=== PATIENT | female | born 1990 | race African-American/Black ===

== ENCOUNTER 2021-12-14 13:44 | Emergency (ER) | payer OTHER, SELFPAY ==
[2021-12-14] VITALS (10 sets, daily range): BP systolic 103–141; BP diastolic 60–93; PULSE 78–83; RESP 16–18; TEMP 36.4; O2SAT 97–100
--- NOTE | ~2021-12-14 | XR_ITS ---
EXAMINATION: XR chest 2V DATE: 12/14/2021 16:07 INDICATION: Cough. TECHNIQUE: Frontal and lateral views of the chest were obtained. COMPARISON: None. FINDINGS: There is no pneumonia, pleural effusion, or pneumothorax. The heart size is normal. IMPRESSION: 1. No acute cardiopulmonary disease. Reviewed, dictated and finalized at location B.
--- NOTE | 2021-12-14 14:11 | ED.URI ---
HPI - URI/Sore Throat General Chief Complaint: Upper Respiratory Infection Stated Complaint: respiratiry virus Time Seen by Provider: 12/14/21 13:48 History of Present Illness HPI Narrative: 31-year-old female presents the emergency room for evaluation of multiple complaints. Patient states for 3 days she has been experiencing sinus congestion, postnasal drip, productive cough and frequently clearing her throat especially when she is laying down. Patient is also been complaining of mild nausea and multiple episodes of nonbloody diarrhea. Patient states, I have a viral illness . Patient has taken Tylenol and hrne-bfw-vvtytln [place] cough and flu for a couple of days with no resolution of symptoms. Patient states that she is also experiencing polyuria and polydipsia. Related Data Allergies Allergy/AdvReac Type Severity Reaction Status Date / Time No Known Allergies Allergy Verified 12/14/21 13:45 Review of Systems Review of Systems: CONSTITUTIONAL: Denies fever, chills, or sweats. EYES: Denies visual changes, redness, or discharge. ENT: Reports rhinorrhea, congestion, sore throat, or otalgia. CARDIOVASCULAR: Denies chest pain, palpitations, or edema. RESPIRATORY: Denies cough or dyspnea. GASTROINTESTINAL: Reports diarrhea. GENITOURINARY: Denies dysuria or hematuria. SKIN: Denies rash or itching. MUSCULOSKELETAL: Denies back pain, joint pain, or myalgia. NEUROLOGIC: Denies headache, numbness, dizziness, or weakness. PSYCHIATRIC: Denies anxiety or depression. Exam Narrative: GENERAL: Well-appearing, well-nourished, no physical limitations, and in no acute distress. HEAD: Normocephalic, atraumatic. EYES: Conjunctivae normal, PERRLA and EOMI. ENT: External nose normal, Nares clear, no rhinorrhea or epistaxis. Mucous membranes moist. Oropharynx without tonsillar hypertrophy exudate or other lesions. External ears normal, bilateral TMs normal bilaterally NECK: Supple. No adenopathy or masses. CHEST: Clear to auscultation. No respiratory distress. No wheezes rales or rhonchi. HEART: Regular rate and rhythm. No murmur heard. Normal peripheral pulses. ABDOMEN: Soft, nontender, nondistended, normal active bowel sounds. SKIN: 5.2cm linear laceration to the dorsal surface of the webbing of the right hand. NEURO: No focal deficits. Alert and oriented x3. MAEW. CN's II-XI intact bilaterally, normal gait PSYCH: Cooperative. Normal mood and affect. Course Vital Signs Vital signs: Vital Signs Temperature 36.4 C L 12/14/21 13:52 Pulse Rate 81 12/14/21 13:52 Respiratory Rate 16 12/14/21 13:52 Blood Pressure 141/93 H 12/14/21 13:52 Pulse Oximetry 99 12/14/21 13:52 Temperature 36.4 C L 12/14/21 13:52 Pulse Rate 83 12/14/21 15:24 Respiratory Rate 16 12/14/21 15:24 Blood Pressure 103/60 12/14/21 15:24 Pulse Oximetry 100 12/14/21 15:24 Oxygen Delivery Room Air 12/14/21 14:20 MDM - URI/Sore Throat Lab Data Result diagrams: 12/14/21 14:22 12/14/21 14:22 Labs: Lab Results 12/14/21 12/14/21 12/14/21 Range/Units 14:22 14:22 14:22 WBC 2.7 L (4.5-10.0) K/mm3 RBC 5.60 H (4.2-5.4) M/mm3 Hgb 12.6 (12.0-15.0) g/dL Hct 40.7 (37.0-47.0) % MCV 72.7 L (80-100) fl MCH 22.5 L (26-34) pg MCHC 31.0 L (32-36) g/dl RDW 14.7 H (11.5-14.5) % Plt Count 189 (150-375) k/mm3 MPV 11.5 H (7.4-10.4) fl Immature Gran % (Auto) 0.4 (0-0.5) % Neut % (Auto) 66.6 (45.5-73.1) % Lymph % (Auto) 25.2 (18.3-44.2) % Banner % (Auto) 5.2 (2.6-8.5) % Eos % (Auto) 2.2 (0-4.4) % Baso % (Auto) 0.4 (0.2-1.2) % Lymph # (Auto) 0.68 L (0.9-3.2) K/mm3 Banner # (Auto) 0.1 (0.1-0.6) K/mm3 Eos # (Auto) 0.1 (0-0.3) K/mm3 Baso # (Auto) 0.0 (0.0-0.1) K/mm3 Abs Immat Gran (auto) 0.01 (0.00-0.031) K/mm3 Absolute Neuts (auto) 1.8 (1.3-6.7) K/mm3 Absolute Nucleated RBC 0.0 (0.0-0.012) K/mm3 Nucleat
[2021-12-14] MEDS: SODIUM CHLORIDE 0.9% IV 1,000 ML 999 ML IV CONT (14:22)
[2021-12-14 14:44] LABS: Basophils Percent Auto 0.4 % (0.2-1.2); Eosinophils Absolute Auto 0.1 K/mm3 (0-0.3); Eosinophils Percent Auto 2.2 % (0-4.4); Hematocrit 40.7 % (37.0-47.0); Hemoglobin 12.6 g/dL (12.0-15.0); Immature Granulocyte Absolute 0.01 K/mm3 (0.00-0.031); Immature Granulocyte Percent A 0.4 % (0-0.5); Immature Platelet Fraction Pct 6.1 % (0.9-11.2); Lymphocytes Absolute Auto 0.68 K/mm3 (0.9-3.2); Lymphocytes Percent Auto 25.2 % (18.3-44.2); Mean Corpuscular Hemoglobin 22.5 pg (26-34); Mean Corpuscular Volume 72.7 fl (80-100); Mean Platelet Volume 11.5 fl (7.4-10.4); Monocytes Absolute Auto 0.1 K/mm3 (0.1-0.6); Monocytes Percent Auto 5.2 % (2.6-8.5); Neutrophils Absolute Auto 1.8 K/mm3 (1.3-6.7); Neutrophils Percent Auto 66.6 % (45.5-73.1); Platelet Count Result 189 k/mm3 (150-375); Red Cell Distribution Width 14.7 % (11.5-14.5); White Blood Count 2.7 K/mm3 (4.5-10.0)
[2021-12-14 14:53] LABS: Hemoglobin A1C 5.6 % (<5.7)
[2021-12-14 14:55] LABS: Alanine Aminotransferase 51 U/L (6-35); Albumin Level 4.1 g/dL (3.5-5.1); Alkaline Phosphatase 78 U/L (38-126); Anion Gap 9 mmol/L (8-16); Aspartate Amino Transferase 37 U/L (14-36); Bilirubin,Total 0.2 mg/dL (0.2-1.3); Blood Urea Nitrogen 7 mg/dL (7-17); Calcium 8.5 mg/dL (8.4-10.2); Carbon Dioxide 24 mmol/L (22-30); Chloride 103 mmol/L (98-107); Estimated CRCL calculation 132 ml/min; Estimated Glomerular Filt Rate > 60; Glucose 101 mg/dL (65-110); Potassium 3.4 mmol/L (3.4-5.0); Sodium 136 mmol/L (137-145)
[2021-12-14 15:17] LABS: Microcytosis 1+ (NORMAL); Platelet Estimate Adequate (Adequate); Schistocytes None Seen (NORMAL)
[2021-12-14 15:19] LABS: SARS-CoV-2 RNA PCR Negative
[2021-12-14 16:45] LABS: Appearance Urine Slightly Cloudy (Clear); Bilirubin Urine 1+ (Negative); Blood Urine Negative (Negative); Color Urine Yellow (Yellow); Glucose Urine UA Negative (Negative); Ketones Urine Trace mg/dL (Negative); Leukocyte Esterase Ur Negative LEU/UL (Negative); Nitrate Urine Negative (Negative); Protein Urine Trace mg/dL (Negative); Specific Grav Ur >= 1.030 (1.001-1.035); Urobilinogen Urine 0.2 mg/dL (<2.0); pH Urine 5.5 (5.0-9.0)
[2021-12-14 16:52] LABS: Mucus Urine Few /lpf; RBC Urine 0-2 /hpf (0-2); Squamous Epithelial Cell Urine Moderate /hpf (Few); WBC Urine 0-3 /hpf
[2021-12-14 16:53] LABS: Add Urine Microscopic? YES
== END 2021-12-14 17:36 | disposition home or self-care (01) ==
PROVIDERS: Emergency Provider Nurse Practitioner Family
DX: J06.9 Acute upper respiratory infection, unspecified (principal); Z20.822 Contact with and (suspected) exposure to COVID-19
CPT/HCPCS: 36415; 71046; 80053; 81001; 83036; 85025; 85055; 96360; 96361; 99283; C9803; J7030; U0003; U0005

== ENCOUNTER 2023-01-24 15:44 | Outpatient (CLI) | payer OTHER, MEDICAID, SELFPAY ==
[2023-01-24 16:08] LABS: Basophils Absolute Auto 0.1 K/mm3 (0.0-0.1); Basophils Percent Auto 0.8 % (0.2-1.2); Eosinophils Absolute Auto 0.2 K/mm3 (0-0.3); Eosinophils Percent Auto 3.5 % (0-4.4); Hemoglobin 11.2 g/dL (12.0-15.0); Immature Granulocyte Absolute 0.01 K/mm3 (0.00-0.031); Immature Granulocyte Percent A 0.2 % (0-0.5); Immature Platelet Fraction Pct 8.1 % (0.9-11.2); Lymphocytes Absolute Auto 2.35 K/mm3 (0.9-3.2); Lymphocytes Percent Auto 39.6 % (18.3-44.2); Mean Corpuscular HGB Conc 30.3 g/dl (32-36); Mean Corpuscular Hemoglobin 21.7 pg (26-34); Mean Corpuscular Volume 71.7 fl (80-100); Mean Platelet Volume 11.5 fl (7.4-10.4); Monocytes Absolute Auto 0.4 K/mm3 (0.1-0.6); Monocytes Percent Auto 6.6 % (2.6-8.5); Neutrophils Absolute Auto 2.9 K/mm3 (1.3-6.7); Neutrophils Percent Auto 49.3 % (45.5-73.1); Platelet Count Result 237 k/mm3 (150-375); Red Blood Count 5.16 M/mm3 (4.2-5.4); Red Cell Distribution Width 15.9 % (11.5-14.5); White Blood Count 5.9 K/mm3 (4.5-10.0)
[2023-01-24 16:47] LABS: Iron 47 ug/dL (37-170)
[2023-01-24 16:57] LABS: Alanine Aminotransferase 36 U/L (6-35); Albumin Level 4.3 g/dL (3.5-5.1); Alkaline Phosphatase 60 U/L (38-126); Anion Gap 10 mmol/L (8-16); Aspartate Amino Transferase 37 U/L (14-36); Bilirubin,Total 0.3 mg/dL (0.2-1.3); Blood Urea Nitrogen 7 mg/dL (7-17); Carbon Dioxide 28 mmol/L (22-30); Chloride 102 mmol/L (98-107); Estimated Glomerular Filt Rate > 60; Glucose 86 mg/dL (65-110); Potassium 3.9 mmol/L (3.4-5.0); Sodium 140 mmol/L (137-145)
[2023-01-24 16:58] LABS: Percent Iron Saturation 13 % (20-50)
[2023-01-24 17:54] LABS: Folic Acid 6.2 ng/mL (2.76->20)
[2023-01-27 09:39] LABS: Methylmalonic Acid 130 nmol/L (87-318)
[2023-01-28 17:45] LABS: Soluble Transferrin Receptor 1.88 mg/L (0.76-1.76)
== END 2023-01-24 15:45 | disposition home or self-care (01) ==
LOC: ANHLAB 15:50
PROVIDERS: Nurse Practitioner Family; PCP Internal Medicine; Visit Provider Internal Medicine Hematology & Oncology
DX: D50.9 Iron deficiency anemia, unspecified (principal)
CPT/HCPCS: 36415; 80053; 82607; 82728; 82746; 83540; 83550; 83921; 84238; 85025; 85055

== ENCOUNTER 2024-10-08 07:53 | Outpatient (CLI) | payer OTHER, MEDICAID, SELFPAY ==
--- OUTSIDE RECORDS SUMMARY | 2024-10-08 08:01 | XMS_ITS | Clinical Summary ---
Author Organization [facility] Address [address] [place] [address] Care Team Providers Care Charity Fundraiser Name Role Phone Elvia Corrales MD Primary Care Provider Source Comments [facility],non-owned Affiliates and Associated Physician Practices is amultiple site organization consisting of ambulatory clinics and hospital sitesin [place], [place], [place] and [place]. This disclosure is being madepursuant to the Care Everywhere program and may not contain all information available regarding this patient. Last updated 17.[facility] Allergies No known active allergies Medications * Be aware that medications may not be up to date on this document. Alwaysverify current medications with the patient. cetirizine (ZyrTEC) 10 MG tablet Take 1 (one) tablet by mouth once daily as needed 3 Active rosuvastatin (Crestor) 40 MG tablet Take 1 (one) tablet by mouth once daily 4 Active topiramate (Topamax) 25 MG tablet Take 1 (one) tablet by mouth once daily for 7 days, THEN 1 (one) tablet 2 times daily for 7 days, THEN 2 (two) tablets 2 times daily for 14 days, THEN 3 (three) tablets 2 times daily for 14 days. 161 tablet 4 Active phentermine (Ionamine) 30 MG capsule Take 25 mg by mouth daily before breakfast Active ibuprofen (Motrin) 600 MG tablet Take 1 (one) tablet by mouth every 6 hours as needed for Pain 50 tablet 1 4 Active acetaminophen (Tylenol) 500 MG capsule Take 2 (two) capsules by mouth every 6 hours 50 capsule 1 4 Active oxyCODONE, immediate release, (Roxicodone) 5 MG tabletIndicatio ns:Postoperativ e state Take 1 (one) tablet by mouth every 6 hours as needed for Pain 12 tablet 4 Active ondansetron, disintegrating, (Zofran ODT) 4 MG tablet Take 1 (one) tablet by mouth every 6 hours as needed for Nausea/Vomitin g Allow tablet to dissolve on the tongue 30 tablet 4 Active Myfembree 40-1-0.5 MG TABSIndications :Fibroid Take 1 tablet by mouth once daily 90 tablet 4 4 Active Active Problems No known active problems Family History Medical History Relation Name Comments Cancer - Breast Maternal Aunt Cancer Other extensive in ma ternal distant side Relation Name Status Comments Maternal Aunt Alive Mother fibroid Other Social History Tobacco Use Types Packs/Day Years Used Date Smoking Tobacco: Never Passive Smoke Exposure: Never Smokeless Tobacco: Never Tobacco Cessation:Counseling Given: Not Answered Alcohol Use Standard Drinks/Week Comments Yes 0 (1 standard drink = 0.6 oz pur e alcohol) ocassional- once a month or so AUDIT-C Answer Date Recorded Q1: How often do you have a drink containing alc ohol? Never 09/20/2023 Average Number of Drinks Not on file 024 Frequency of Binge Drinking Not on file 11/2023 PHQ-2 Answer Date Recorded Patient Health Questionnaire-2 Score 6 09/29/2023 Comments No Sex and Gender Information Value Date Recorded Sex Assigned at Not on file Legal Sex Female 3:39 PM CDT Gender Identity Not on file Sexual Orientation Not on file Last Filed Vital Signs Vital Sign Reading Time Taken Comments Blood Pressure 132/88 10/06/2023 3:41 PM CDT Pulse 92 09/20/2023 5:12 PM CDT Temperature 36.6 C (97.9 F) 09/20/2023 3:08 PM CDT Respiratory Rate 16 09/20/2023 5:12 PM CDT Oxygen Saturation 94% 09/20/2023 5:12 PM CDT Inhaled Oxygen Concentration - - Weight 152.9 kg (337 lb) 10/06/2023 3:41 PM CDT Height 172.7 cm (5' 8) 10/06/2023 3:41 PM CDT Body Mass Index 51.24 10/06/2023 3:41 PM CDT Plan of Treatment Health Maintenance Due Date Last Done Comments HIV SCREENING 02/25/2003 HEPATITIS C SCREENING 02/21/2006 DTAP/TDAP/TD VACCINES (1 - Tdap) 02/25/2007 HEPATITIS B VACCINE (1 of 3 - 19+ 3-dose series) 02/25/2007 PAP SMEAR 02/25/2009 HPV VACCINE (1 - 3-dose SCDM series) 02/25/2015 COVID-19 VACCINE ( - 2023-2 5 season) 2023 DEPRESSION SCREENING 03/14/2024 06/24/2023 INFLUENZA VACCINE (#1) 2024 6, 12/24/2013 ZOSTER VACCINE (1 of 2) 02/25/2038 HIB VACCINE Aged Out No longer eligi ble based on patient's age to complete this topic MENINGOCOCCAL (Group B) VACCINE SHARED DECISION-MAKING Aged Out No longer eligible based on patient's age to complete this topic MENINGOCOCCAL GROUPS A/C/Y/W VACCINE Aged Out No longer eligible b ased on patient's age to complete this topic PNEUMOCOCCAL VACCINE Aged Out No long er eligible based on patient's age to complete this topic Insurance [facility] MEDICAID - [place] Care Teams Charity Fundraiser Relationship Specialty Start Date End Date Elvia Corrales MD [address] [address] PCP - General Internal Medicine 05/24/23
--- OUTSIDE RECORDS SUMMARY | 2024-10-08 08:01 | XMS_ITS | Patient Health Record ---
Author Organization [facility] [employer] Address [address] [place] [address] Care Team Providers Care Leasing Consultant Name Role Phone Vinita Martinez Unavailable [phone] Allergies No Known Allergies Reason For Referral No Information Medications Medication SIG (Take, Route, Frequency, Duration) Notes Start Date End Date Status hydrOXYzine HCl 10 MG 1 tablet as needed Orally twice a day for anxiety 12/28/2023 Active Rosuvastatin Calcium 40 MG Oral 05/11/2023 Active Fluticasone Propionate Diskus 50 MCG/ACT Inhalation *Reorder from [employer] for eRx and Interaction Alerts* 05/11/2023 Unknown Wellbutrin XL 150 MG 1 tablet in the morning Oral Once a day; Duration: 90 days Active MYFEMBREE 40 MG-1 MG-0.5 MG TABLET *Reorder from [employer] for eRx and Interaction Alerts* 05/11/2023 Active Cyclobenzaprine HCl 10 MG Oral 05/11/2023 Not-Taking Immunizations Vaccine Route Administration Date Status Comme nts Tdap Unknown 09/30/2022 Administered Social History Tobacco Use: Social History Observation Description Date Details (start date - stop date) Never Smoker NA - NA Sex Assigned At : Social History Observation Description Sex Assigned At Female Tobacco Control (Standard) Question Answer Notes Tobacco use: Nonsmoker Problems Problem Type SNOMED Code ICD Code Onset Dates Problem Status W/U Status Risk Notes Problem Major depressive disorder, recurrent severe without psychotic features (F33.2) Active confirmed Problem Generalized anxiety disorder (65558159) Generalized anxiety disorder (F41.1) Active confirmed Encounters Encounter Location Date Provider Diagnosis [facility] [address] [place] [address] 12/28/2023 Vinita Martinez Major depressive disorder, recurrent severe without psychotic features F33.2 and Generalized anxiety disorder F41.1 Assessments Encounter Date Diagnosis (ICD Code) Assessment Notes Treatment Notes Treatment Clinical Notes Section Notes 12/28/2023 Major depressive disorder, recurrent severe without psychotic features (ICD-10 - F33.2) 12/28/2023 Generalized anxiety disorder (ICD-10 - F41.1) 12/28/2023 Other Restart Wellbutrin 150mg daily for mood, anxiety. Start hydroxyzine 10mg BID for anxiety PRN Patient educated on all medications including potential benefits, side effects, risks. Educated on proper dosing schedule and importance of compliance. Plan Of Treatment Next Appt Details Provider Name:Vinita Johnson dominique, 10/18/2024 11:30:00 AM, [address], [address], [place], [address], Insurance Providers Payer Name Payer Address Payer Phone Subscriber Number Group Number Insured Name Patient Relationship to Insured Coverage Start Date Coverage End Date [facility] [address] [place] [phone] [id number] KAMERON YI Self - patient is the insured [place] [address] [address] [place] [address] [id number] KAMERON YI Self - patient is the insured Medical (General) History Medical History History ICD Code Problems: Allergic rhinitis Anemia Environmental allergy Generalized anxiety disorder Hyperlipidemia Lipoma of skin Liver function tests outside reference r danica Low back pain Mass of soft tissue Prediabetes Serum vitamin B12 below reference range Severe recurrent major depression withou t psychotic features Vitamin D deficiency , Surgical History Surgery Date(Month/Year) Other 02/21/2023
--- OUTSIDE RECORDS SUMMARY | 2024-10-08 08:01 | XMS_ITS | Encounter Summary ---
Author Organization [facility] Address [address] [place] [address] Care Team Providers Care Carburetor Mechanic Name Role Phone Elvia Corrales MD Primary Care Provider Reason for Visit * Reason Onset Date Comments Med Question 10/10/2023 Insurance Issue/question 10/10/2023 Encounter Details Date Type Department Care Team (Late st Contact Info) Description 10/10/2023 Telephone [facility] [address] [place] [address] Luiza Dillard MD [address] [place] [address] Med Question; Insurance Issue/question Social History Tobacco Use Types Packs/Day Years Used Date Smoking Tobacco: Never Passive Smoke Exposure: Never Smokeless Tobacco: Never Alcohol Use Standard Drinks/Week Comments Yes 0 [...] on file Sexual Orientation Not on file documented as of this encounter Miscellaneous Notes * Telephone Encounter - Hilaria Smith RN - 10/12/2023 10:13 AM CDT Approved on October 09 by [employer] 2017 [facility] Request Reference Number: [id number]. MYFEMBREE TAB is approved through 10/09/2024. Your patient may now fill this prescription and it will be covered. RN sent mychart to pt to make aware * Telephone Encounter - Hilaria Smith RN - 10/10/2023 11:44 AM CDT RN does not see PA initiated for Myfembree that was sent 10/04/23. RN initiated on CMM (Zambrano: [id number]) Awaiting decision * Telephone Encounter - Carin Hernández - 10/10/2023 11:19 AM CDT Radha with [employer] is calling to see if there is a prior authorization for the PT's RX of Myfembree tablets. C/B [phone] documented in this encounter Plan of Treatment Not on file documented as of this encounter Visit Diagnoses Not on filedocumented in this encounter Care Teams Carburetor Mechanic Relationship Specialty Start Date End Date Elvia Corrales MD [address] [phone] PCP - General Internal Medicine 05/24/23 documented as of this encounter
--- OUTSIDE RECORDS SUMMARY | 2024-10-08 08:01 | XMS_ITS | Clinical Summary ---
Author Organization [facility] Address [address] [place] [address] Care Team Providers Care Dustless Operator Name Role Phone Jun Rodriguez MD Primary Care Provider + [phone] Allergies No known active allergies Medications Levonorgest-Eth Estrad 91-Day (CAMRESE LO) 0.1-0.02 & 0.01 MG Tab Active busPIRone 7.5 MG tablet Take 7.5 mg by mouth 3 (three) times daily. Active hydrocodone-kvng taminophen 5-325 MG tablet Take 1 tablet by mouth every 6 (six) hours as needed for Pain. Do not drive while taking Hydrocodone 10 tablet 8 Active Active Problems No known active problems Family History Medical History Relation Comments Hypertension Mother Relation Status Comments Father Alive Mother Alive Social History Tobacco Use Types Packs/Day Years Used Date Smoking Tobacco: Never Smokeless Tobacco: Never Alcohol Use Standard Drinks/Week Comments No 0 (1 standard drink = 0.6 oz pur e alcohol) Comments No Sex and Gender Information Value Date Recorded Sex Assigned at Not on file Legal Sex Female 7:14 PM CDT Gender Identity Not on file Sexual Orientation Not on file Last Filed Vital Signs Vital Sign Reading Time Taken Comments Blood Pressure 138/88 11/26/2017 2:50 PM CDT Pulse 87 11/26/2017 2:50 PM CDT Temperature 37.2 C (98.9 F) 11/26/2017 2:50 PM CDT Respiratory Rate 18 11/26/2017 2:50 PM CDT Oxygen Saturation 99% 11/26/2017 2:50 PM CDT Inhaled Oxygen Concentration - - Weight 143.3 kg (316 lb) 11/26/2017 2:50 PM CDT Height 172.7 cm (5' 8) 11/26/2017 2:50 PM CDT Body Mass Index 48.05 11/26/2017 2:50 PM CDT Plan of Treatment Health Maintenance Due Date Last Done Comments Cervical Cancer Screening Pap Smear (Age 30 to 64) Every 3 Years 1990 Annual Physical 02/25/1991 Hepatitis C 02/25/2006 DTaP, Tdap and Td Vaccines (2 - Tdap) 02/25/2007 09/28/1997, 12/08/1993, 12/26/1991, Additional history exists Hepatitis B Vaccines (1 of 3 - 19+ 3-dose series) 02/25/2007 HPV Vaccines (1 - 3-dose SCDM series) 02/25/2015 Cervical Cancer Screening Pap with HPV Testing (Age 30 to 64) Every 5 Years 02/25/2018 Cervical Cancer Screening with HPV 02/25/2018 COVID-19 Vaccine ( season) 2023 Meningococcal B Vaccine Aged Out No l onger eligible based on patient's age to complete this topic Meningococcal Vaccine Aged Out No tam pamela eligible based on patient's age to complete this topic Pneumococcal Vaccine: Pediatrics (0 to 5 Years) and At-Risk Patients (6 to 49 Years) Aged Out No longer eligible based on patient's age to complete this topic RSV Immunizations Under 20 Months Aged Out No longer eligible based on patient's age to complete [place] [address] [employer] Member Subscriber Plan / Payer (Ef fective 2017-Present) Name:Bree Delgado Relation to Subscriber:Self Name:Bree Delgado Payer ID:[id number] (NAIC) Type:Not on file Address: [address] [address] Care Teams Dustless Operator Relationship Specialty Start Date End Date Jun Rodriguez MD [address] [place] [address] PCP - General FAMILY PRACTICE 11/26/17
--- OUTSIDE RECORDS SUMMARY | 2024-10-08 08:01 | XMS_ITS | Referral Summary ---
Author Organization [facility] Address [address] [place] [address] Care Team Providers Care Wafer Fabrication Operator Name Role Phone Dana Bowen DO Primary Care Provider Allergies No known active allergies Active Problems Problem Noted Date Diagnosed Date Pain of foot 11/26/2015 Bacterial vaginosis 08/08/2015 Candidiasis of vagina 08/08/2015 Candidiasis of skin 08/08/2015 Sexually transmitted disease 08/08/2015 Gastroesophageal reflux disease 05/20/2015 Morbid obesity 05/19/2015 Depot contraception 02/04/2015 Previous section 11/26/2013 Bronchial asthma 11/26/2013 Immunizations Immunization Administration Dates Next Due Influenza, Quadrivalent, Spl it, Preservative Free, Intramuscular 12/24/2013 Social History Tobacco Use Types Packs/Day Years Used Date Smoking Tobacco: Never Personal Safety Answer Date Recorded Getting School Help Needed Not on file 05/26 Comments Unknown Sex and Gender Information Value Date Recorded Sex Assigned at Not on file Legal Sex Female 7:15 AM LABORER [employer] Gender Identity Not on file Sexual Orientation Not on file Last Filed Vital Signs Vital Sign Reading Time Taken Comments Blood Pressure 164/94 08/28/2020 11:26 AM CDT Pulse 93 08/28/2020 11:26 AM CDT Temperature 37.6 C (99.7 F) 08/28/2020 11:26 AM CDT Respiratory Rate 18 08/28/2020 11:26 AM CDT Oxygen Saturation 98% 08/28/2020 11:26 AM CDT Inhaled Oxygen Concentration - - Weight 150 kg (330 lb 11.1 oz) 04/21/2019 12:07 PM [employer] Height 172.7 cm (5' 8) 04/21/2019 12:07 PM [employer] Body Mass Index 50.28 04/21/2019 12:07 PM [employer] Plan of Treatment Not on file Insurance * Guarantor: Bree Delgado Account Type Relation to Patient Date of Phone Billing Address Personal/Family Self [address] [place] [address] [facility] Care Teams Wafer Fabrication Operator Relationship Specialty Start Date End Date Bowen, Dana Penny, DO [address] [address] PCP - General 04/21/19
--- OUTSIDE RECORDS SUMMARY | 2024-10-08 08:01 | XMS_ITS ---
Author Organization [facility] Address [address] [place] [address] Care Team Providers Care Truck Safety Inspector Name Role Phone Junior Fernandez Unavailable [phone] Problems Problem Type SNOMED Code ICD Code Onset Dates Problem Status W/U Status Risk Notes Problem Chronic kidney disease stage 1 (001973328) Chronic kidney disease, stage 1 (N18.1) Active confirmed Problem Fatty (change of) liver, not elsewhere classified (K76.0) Active confirmed Encounters Encounter Location Date Provider Diagnosis [facility] [address] [place] [address] 10/28/2023 Junior Fernandez Chronic kidney disease, stage [...] Of Treatment No Information Progress Notes * KASSIDY BreeDOB:[birth year] (34 yo F)Acc No.[id number]:10/28/2023 Progress Notes Patient: Bree RODAS Provider: Keisha DAVIDSON MD, F.A.C.P, F.A.S.N. :1990 A ge:33 Y S ex:Female Date:10/28/2023 [facility] [facility] Subjective: * Chief Complaints: * * Medical History: Objective: * Vitals: Assessment: * Assessment: 1. C hronic kidney disease, stage 1 - N18.1 (Primary) 2 . A nemia, unspecified - D64.9 3 . F atty (change of) liver, not elsewhere classified - K76.0 ? 4 . P roteinuria, unspecified - R80.9 Plan: * Treatment: * Billing Information: * Visit Code: 10626 Office Visit, New Pt., Level 5. * Procedure Codes: * Electronic signature of Rashida Fernandez MD on 10/08/2024 at 08:01 AM CDT Sign off status: Pending * Provider: Keisha DAVIDSON MD, F.A.C.P, F.A.S.N. Date: 10/28/2023 Generated for Printing/Faxing/eTransmitting on: 10/08/2024 08:01 AM CDT
--- OUTSIDE RECORDS SUMMARY | 2024-10-08 08:01 | XMS_ITS | Clinical Summary ---
Author Organization [facility] Alber Baez Address [address] [place] [address] Care Team Providers Care Tone Regulator Name Role Phone Elvia Corrales MD Primary Care Provider Allergies No known active allergies Medications metFORMIN (GLUCOPHAGE) 500 mg tablet Take 500 mg by mouth daily with breakfast. Active cholecalciferol, vitamin D3, 5,000 unit Take 400 Units by mouth every 7 days. Active cetirizine (ZyrTEC) 10 mg tablet Take 1 Tablet by mouth daily. 01/31/2023 Active Myfembree 40-1-0.5 mg Tablet 04/06/2023 Active rosuvastatin (CRESTOR) 40 mg tablet Take 1 Tablet by mouth daily. 03/31/2023 Active ferrous sulfate 325 mg (65 mg iron) tabletIndication s:Iron deficiency anemia due to chronic blood loss Take 1 Tablet (325 mg) by mouth daily. 90 Tablet 3 11/01/2023 Active Active Problems Problem Noted Date Diagnosed Date JUVE (iron deficiency anemia) 04/07/2023 Encounters Date Type Department Care Team Description 09/26/2024 External Device Data STL ABSTRACTION Provider, Abstract 09/25/2024 External Device Data [facility] ABSTRACTION Provider, Abstract 09/04/2024 External Device Data [facility] ABSTRACTION Provider, Abstract 09/04/2024 Abstract [facility] [place] [address] [address] Billy Flores MD 08/28/2024 External Device Data ST[facility] ABSTRACTION Provider, Abstract 08/07/2024 External Device Data [facility] ABSTRACTION Provider, Abstract 08/01/2024 External Device Data [facility] ABSTRACTION Provider, Abstract 07/31/2024 External Device Data [facility] ABSTRACTION Provider, Abstract from Last 3 Months Family History Medical History Relation Name Comments No Known Problems Brother No Known Problems Daughter No Known Problems Father Breast Cancer Maternal Aunt multiple Colon Cancer Maternal Uncle multiple Stomach Cancer Maternal Uncle multiple Diabetes Mother Heart Disease Mother Breast Cancer Paternal Aunt No Known Problems Sister 1 No Known Problems Sister 2 No Known Problems Sister 3 No Known Problems Son Relation Name Status Comments Brother Alive Daughter Alive Father Alive Maternal Aunt multiple Other Maternal Uncle multiple Other Mother Alive Paternal Aunt Alive Sister 1 Alive Sister 2 Alive Sister 3 Alive Son Alive Social History Tobacco Use Types Packs/Day Years Used Date Smoking Tobacco: Never Smokeless Tobacco: Never Tobacco Cessation:Counseling Given: Not Answered Alcohol Use Standard Drinks/Week Comments Yes 0 (1 standard drink = 0.6 oz pur e alcohol) socially Comments Unknown Sex and Gender Information Value Date Recorded Sex Assigned at Not on file Legal Sex Female 10:45 PM CDT Gender Identity Not on file Sexual Orientation Not on file Last Filed Vital Signs Vital Sign Reading Time Taken Comments Blood Pressure 126/77 11/01/2023 2:48 PM CDT Pulse 66 11/01/2023 2:48 PM CDT Temperature 36.6 C (97.9 F) 11/01/2023 2:48 PM CDT Respiratory Rate 16 11/01/2023 2:48 PM CDT Oxygen Saturation 90% 11/01/2023 2:48 PM CDT Inhaled Oxygen Concentration - - Weight 150.6 kg (332 lb) 11/01/2023 2:48 PM CDT Height 172.7 cm (5' 8) 01/24/2023 3:08 PM CUSTOMER RELATIONS REPRESENTATIVE Body Mass Index 50.48 01/24/2023 3:08 PM CUSTOMER RELATIONS REPRESENTATIVE Plan of Treatment Upcoming Encounters Date Type Department Care Team (Late st Contact Info) Description 12/11/2024 3:45 PM CDT Office Visit [facility] - [place] [address] [facility] [address] [place] [address] Billy Flores MD [address] [facility] [address] [place] [address] Health Maintenance Due Date Last Done Comments Pre-Diabetes and Diabetes Screening 1990 HPV VACCINES (1 - 3-dose series) 02/25/2003 HEPATITIS B VACCINES (1 of 3 - 19+ 3-dose series) 02/11 HPV/Cotest (21-29) 02/25/2009 CERVICAL CANCER SCREENING 02/25/2018 HPV/Cotest (30-65) 02/25/2018 PAP SMEAR 02/25/2018 INFLUENZA VACCINE (#1) 2024 12/24/2013 DTAP/TDAP/TD VACCINES (2 - Td or Tdap) 09/30/2032 Insurance MEDICAID [place] Care Teams Tone Regulator Relationship Specialty Start Date End Date Elvia Corrales MD PCP - General Internal Medicine 01/24/23
--- OUTSIDE RECORDS SUMMARY | 2024-10-08 08:01 | XMS_ITS | Clinical Summary ---
Author Organization [facility] Facility Address [address] [facility] [address] [address] Care Team Providers Care Aquatic Performer Name Role Phone Elvia Corrales MD Primary Care Provider [phone] Encounters Date Type Department Care Team Description 08/29/2024 Documentation Only [facility] [address] [address] Provider, MD Popeye from Last 3 Months Social History Tobacco Use Types Packs/Day Years Used Date Smoking Tobacco: Never Assessed Comments Unknown Sex and Gender Information Value Date Recorded Sex Assigned at Not on file Legal Sex Female 4:59 PM EDT Gender Identity Not on file Sexual Orientation Not on file Plan of Treatment Upcoming Encounters Date Type Department Care Team (Late st Contact Info) Description 10/30/2024 11:00 AM CDT Office Visit [facility] [address] [phone] Ash Beal MD [address] [place] [phone] Health Maintenance Due Date Last Done Comments Hepatitis B Vaccine (1 of 3 - 19+ 3-dose series) 02/25 Pneumococcal Vaccine: Peds ( 0 to 5 Years) and At-Risk Patients (6 to 49 Years) (1 of 2 - PCV) 02/25/2007 Influenza Vaccine (#1) 2024 12/24/2013 Insurance [facility] Choice HMO ([id number]) Medicaid [place] Care Teams Aquatic Performer Relationship Specialty Start Date End Date Elvia Corrales MD [address] [facility], [address] [place] [address] PCP - General Internal Medicine 05/24/24
--- OUTSIDE RECORDS SUMMARY | 2024-10-08 08:01 | XMS_ITS | Clinical Summary ---
Author Organization [facility] Care Team Providers Care Wheel Grinder Name Role Phone Unavailable Primary Care Provider Unavailabl e Social History Tobacco Use Types Packs/Day Years Used Date Smoking Tobacco: Never Assessed Comments Unknown Sex and Gender Information Value Date Recorded Sex Assigned at Not on file Legal Sex Female 3:04 PM CDT Gender Identity Not on file Sexual Orientation Not on file Plan of Treatment Health Maintenance Due Date Last Done Comments Hepatitis C Virus (HCV) Screening 1990 TdaP Immunization 1990 Hepatitis B Immunization (3 of 3 - 3-dose series) 03/16/2000 01/20/2000, 10/22/1997 Human Papillomavirus (HPV) Immunization (1 - 3-dose series) 02/25/2003 Pap Smear 02/25/2009 Cervical Cancer Screening (CCS) 02/25/2018 HPV/Cotest 02/25/2018 SARS-COV-2 Immunization ( season) 2023 Influenza Immunization (#1) 2024 03/12/2016 Respiratory Syncytial Virus (RSV) Immunization (Adult) (1 - 1-dose 75+ series) 02/25/2063 DTaP/Tdap/Td Immunization Discontinued 1997, 12/08/1993, 12/26/1991, Additional history exists Meningococcal Immunization (ACWY) Aged Out No longer eligible based on patient's age to complete this topic Pneumococcal Immunization Combined Aged Out No longer eligible based on patient's age to complete this topic Rotavirus Immunization Aged Out No lo nger eligible based on patient's age to complete this topic
--- OUTSIDE RECORDS SUMMARY | 2024-10-08 08:01 | XMS_ITS | Clinical Summary ---
Author Organization [facility] Address [address] [place] [address] Care Team Providers Care Aircraft Design Engineer Name Role Phone Dana Bowen DO Primary [...] Quadrivalent, Spl it, Preservative Free, Intramuscular 12/24/2013 Medical History Medical History Date Comments History of other genital sys tem and obstetric disorders History of - (Adde d by TW Conv) Blood type, Rh negative Blood ty pe, Rh negative - (Added by TW Conv) Personal history of diseases of the blood and blood-forming organs and certain disorders involving the immune mechanism History of anemia - (Added b y TW Conv) Social History Tobacco Use Types Packs/Day Years Used Date Smoking Tobacco: Never Personal Safety Answer Date Recorded Getting School Help Needed Not on file 05/26 Comments Unknown Sex and Gender Information Value Date Recorded Sex Assigned at Not on file Legal Sex Female 7:15 AM STEEL FLOOR PAN PLACING SUPERVISOR Gender Identity Not on file Sexual Orientation Not on file Obstetrics History Last Filed Vital Signs Vital Sign Reading Time Taken Comments Blood Pressure 164/94 08/28/2020 11:26 AM CDT Pulse 93 08/28/2020 11:26 AM CDT Temperature 37.6 C (99.7 F) 08/28/2020 11:26 AM CDT Respiratory Rate 18 08/28/2020 11:26 AM CDT Oxygen Saturation 98% 08/28/2020 11:26 AM CDT Inhaled Oxygen Concentration - - Weight 150 kg (330 lb 11.1 oz) 04/21/2019 12:07 PM STEEL FLOOR PAN PLACING SUPERVISOR Height 172.7 cm (5' 8) 04/21/2019 12:07 PM STEEL FLOOR PAN PLACING SUPERVISOR Body Mass Index 50.28 04/21/2019 12:07 PM STEEL FLOOR PAN PLACING SUPERVISOR Plan of Treatment Not on file Insurance * Guarantor: Bree Delgado Account Type Relation to Patient Date of Phone Billing Address Personal/Family Self [address] [facility] * Guarantor: Bree Delgado Account Type Relation to Patient Date of Phone Billing Address Personal/Family Self [address] [place] [address] [facility] Care Teams Aircraft Design Engineer Relationship Specialty Start Date End Date Dana Bowen DO [address] [phone] PCP - General 04/21/19
--- OUTSIDE RECORDS SUMMARY | 2024-10-08 08:01 | XMS_ITS | Patient Health Record ---
Author Organization [facility] Address [address] [place] [address] Care Team Providers Care Wheat Grower Name Role Phone Junior Fernandez Unavailable [phone] Reason For Referral No Information Problems Problem Type SNOMED Code ICD Code Onset Dates Problem Status W/U Status Risk Notes Problem Fatty (change of) liver, not elsewhere classified (K76.0) Active confirmed Problem Chronic kidney disease stage 1 ([id number]) Chronic kidney disease, stage 1 (N18.1) Active confirmed Encounters Encounter Location Date Provider Diagnosis [place] [facility] [address] [facility] [address] [place] [address] 10/28/2023 Junior Fernandez Chronic kidney disease, stage 1 N18.1 ; Anemia, unspecified D64.9 ; Fatty (change of) liver, not elsewhere classified K76.0 and Proteinuria, unspecified R80.9 Assessments Encounter Date Diagnosis (ICD Code) Assessment Notes Treatment Notes Treatment Clinical Notes Section Notes 10/28/2023 Anemia, unspecified (ICD-10 - D64.9) 10/28/2023 Chronic kidney disease, stage 1 (ICD-10 - N18.1) 10/28/2023 Fatty (change of) liver, not elsewhere classified (ICD-10 - K76.0) 10/28/2023 Proteinuria, unspecified (ICD-10 - R80.9) Plan Of Treatment No Information
--- OUTSIDE RECORDS SUMMARY | 2024-10-08 08:02 | XMS_ITS | Data Portability ---
Author Organization [place] [facility], Main Office Address [address] [place] [address] Care Team Providers Care Buffing Wheel Former Automatic Name Role Phone JERALD BEDOLLA Chief Analytics Officer RONY GARVIN Duplicating Machine Mechanic [phone] ELVIA CORRALES Primary Care Provider [phone] LUIZA FRANCISCO Wire Machine Operator Assessment Encounter Date Assessment Date Assessment LastModified by Organization Details LastModified Time 10/12/2023 10/12/2023 10/04/2022: A1C 5.8 VIT D <12.8 H/H 11.9, MCV 72.8 LDL 104 04/15/2023: HGB 11.1, MCV 72.7 10/12/2023: Urine micro 34.8 WBC 4.1, H/H 11.8/39.4, MCV 74.9 Not available 10/12/2023 16:35:26 02/14/2024 02/14/2024 10/04/2022: A1C 5.8 VIT D <12.8 H/H 11.9, MCV 72.8 LDL 104 04/15/2023: HGB 11.1, MCV 72.7 10/12/2023: Urine micro 34.8 WBC 4.1, H/H 11.8/39.4, MCV 74.9 02/14/2024: Hep pane/GGT: Neg MCV 73.8 Not available 02/14/2024 17:01:15 05/22/2024 05/22/2024 10/04/2022: A1C 5.8 VIT D <12.8 H/H 11.9, MCV 72.8 LDL 104 04/15/2023: HGB 11.1, MCV 72.7 10/12/2023: Urine micro 34.8 WBC 4.1, H/H 11.8/39.4, MCV 74.9 02/14/2024: Hep pane/GGT: Neg MCV 73.8 Not available 05/22/2024 15:32:16 08/28/2024 08/28/2024 10/04/2022: A1C 5.8 VIT D <12.8 H/H 11.9, MCV 72.8 LDL 104 04/15/2023: HGB 11.1, MCV 72.7 10/12/2023: Urine micro 34.8 WBC 4.1, H/H 11.8/39.4, MCV 74.9 02/14/2024: Hep pane/GGT: Neg MCV 73.8 08/27/2024: [facility] TG 214 A1C 5.6 MCV 74.4 VIT D 20.0 Not available 08/28/2024 16:54:14 09/03/2024 09/03/2024 Time spent with patient included: preparing to see patient by reviewing tests, obtaining and reviewing history, medical examination and evaluation, counseling and educating the patient, ordering medications and tests, documenting clinical information in EHR, independently interpreting results and communicating results to the patient for a total of 42 minutes. [email or web address] Not available 09/03/2024 14:41:57 Plan of Treatment Reminders Order Date Submit Date Provider Last Modified By Organization Details Last Modified Time Details Appointments Any 15 2024 02:30P Dhruv fox MD Not available Not available Not available Lab HbA1c (hemoglob in A1c), blood [address], [address] [place], [address], 08/28/2024 17:25:26 microalbu min, urine [email or web address] [place] [address], [address] [place], [address], 08/28/2024 17:25:26 lipid panel, serum [address], [address] [place], [address], 08/28/2024 17:25:27 CMP, serum or plasma [address], [address] [place], [address], 08/28/2024 17:25:28 CBC w/ auto diff [address], [address] [place], [address], 08/28/2024 17:25:28 TSH + free T4, serum [address], [address] [place], [address], 08/28/2024 17:25:28 vitamin D, 25-hydrox y, total, serum [address], [address] [place], [address], 08/28/2024 17:25:27 vitamin B12 + folate, serum or blood [address], [address] [place], [address], 08/28/2024 17:25:27 HbA1c (hemoglob in A1c), blood [address], [address] [place], [address], 05/22/2024 15:43:57 microalbu min, urine [address], [address] [place], [address], 05/22/2024 15:43:58 lipid panel, serum [address], [address] [place], [address], 05/22/2024 15:43:58 CMP, serum or plasma 2024 025 [facility], [address] [place], [address], 05/24/2024 12:30:09 CBC w/ auto diff 2024 025 [facility], [address] [place], [address], 05/24/2024 12:30:09 TSH + free T4, serum 2024 025 [facility], [address] [place], [address], 05/24/2024 12:30:09 vitamin D, 25-hydrox y, total, serum [address], [address] [place], [address], 05/22/2024 15:43:58 vitamin B12 + folate, serum or blood [address], [address] [place], [address], 05/22/2024 15:43:58 HbA1c (hemoglob in A1c), blood [address], [address] [place], [address], 08/14/2024 14:47:06 microalbu min, urine [address], [address] [place], [address], 08/14/2024 14:47:07 lipid panel, serum [address], [address] [place], [address], 07/18/2024 14:40:25 CMP, serum or plasma [address], [address] [place], [address], 07/18/2024 14:40:25 CBC w/ auto diff [address], [address] [place], [address], 07/18/2024 14:40:26 TSH + free T4, serum [address], [address] [place], [address], 07/18/2024 14:40:26 vitamin D, 25-hydrox y, total, serum [address], [address] [place], [address], 08/14/2024 14:47:07 vitamin B12 + folate, serum or blood [address], [address] [place], [address], 08/14/2024 14:47:07 HbA1c (hemoglob in A1c), blood [address], [address] [place], [address], 04/09/2024 14:07:00 microalbu min, urine 2023 024 [facility], [address] [place], [address], 10/20/2023 23:03:19 lipid panel, serum 2023 024 [facility], [address] [place], [address], 10/12/2023 18:06:07 CMP, serum or plasma 2023 024 [facility], [address] [place], [address], 10/12/2023 18:06:13 CBC w/ auto diff 2023 024 [facility], [address] [place], [address], 10/20/2023 23:03:18 TSH + free T4, serum [address], [address] [place], [address], 03/15/2024 09:30:29 vitamin D, 25-hydrox y, total, serum 2023 024 [facility], [address] [place], [address], 10/13/2023 12:27:11 vitamin B12 + folate, serum or blood 2023 024 [facility], [address] [place], [address], 10/13/2023 12:27:11 Referral obstetric mya and gynecolog ist referral - Please call patient to schedule an appointme nt. Thank you. 2024 025 DOMINGO urrutia MD, [address], [place], [address], 08/29/2024 11:05:25 nephrolog ist referral - Please call patient to schedule an appointme nt. Thank you. 2024 025 DOMINGO Funk DO, [address], [address], [place], [address], 08/29/2024 11:15:26 gastroent erologist referral - Please call patient to schedule an appointme nt. Thank you 2024 025 DOMINGO Bagley MD, [address] [place], [address], 08/29/2024 11:20:41 hematolog ist referral - Please call patient to schedule an appointme nt. Thank you. 2024 025 DOMINGO Flores MD, [address], [place], [address], 08/29/2024 11:10:29 pulmonolo gist referral - Please call patient to schedule an appointme nt. Thank you. 2024 025 DOMINGO Cuba [facility], [address], [address], [place], [address], 08/31/2024 10:10:42 obstetric mya and gynecolog ist referral - Please call patient to schedule an appointme nt. Thank you. 2024 025 [email or web address] Luiza urrutia MD, [address] [facility], [place], [address], 08/21/2024 14:53:57 nephrolog ist referral - Please call patient to schedule an appointme nt. Thank you. 2024 025 [email or web address] Chris Funk DO, [address], [address], [place], [address], 06/19/2024 08:55:11 gastroent erologist referral - Please call patient to schedule an appointme nt. Thank you 2024 025 juan carlos Bagley MD, [address] [place], [address], 06/19/2024 08:55:42 hematolog ist referral - Please call patient to schedule an appointme nt. Thank you. 2024 025 [email or web address] Billy Flores MD, [address], [place], [address], 08/21/2024 14:53:59 obstetric mya and gynecolog ist referral 2023 024 Luiza urrutia MD, [address] [facility], [place], [address], 02/15/2024 08:51:27 nephrolog ist referral - Please call patient to schedule. 2023 024 [email or web address] Junior Fernandez MD (Nephrology, [address], [address], [place], [address], 05/22/2024 11:55:43 gastroent erologist referral 2023 024 [email or web address] Laoy Bagley MD, [address] [place], [address], 02/15/2024 08:51:28 hematolog ist referral 2023 024 [email or web address] Billy Flores MD, [address], [place], [address], 02/15/2024 08:51:29 obstetric mya and gynecolog ist referral 2023 024 [email or web address] Keshav Dill MD, [address], [address], [place], [address], 04/09/2024 14:07:19 nephrolog ist referral 2023 024 [email or web address] Junior Fernandez MD (Nephrology, [address], [address], [place], [address], 02/15/2024 08:52:36 gastroent erologist referral 2023 024 juan carlos Bagley MD, [address] [place], [address], 04/09/2024 14:07:20 hematolog ist referral 2023 024 [email or web address] Billy Flores MD, [address], [place], [address], 11/08/2023 08:45:43 Procedures None recorded. Surgeries None recorded. Imaging home sleep study - Please call patient to schedule. 2024 025 [facility] ([facility]), [address] [place], [address], 10/04/2024 04:18:32 Medication Orders cholecalc iferol (vitamin D3) 1,250 mcg (50,000 unit) capsule 2024 025 [id number], [address], [place], [place], [id number], 08/28/2024 17:08:40 Zyrtec 10 mg tablet 2023 024 [facility] #[id number], [address], [place], [place], [id number], 02/14/2024 17:02:34 cyclobenz aprine 10 mg tablet 2023 024 [facility] #[id number], [address], [place], [place], [id number], 02/14/2024 17:02:38 cephalexi n 250 mg capsule [email or web address] [facility][id number], [address], [place], [place], [id number], 05/22/2024 15:02:47 Patient TargetsNo targets recorded. Patient Instructions Encounter Date Encounter Id Patient Instructions Last Modified By Organization Details Last Modified Time 08/28/2024 [id number] INFLUENZA VACCIN E TD/TDAP MAMMOGRAM CERVICAL SCREENING/PELVIC EXAMINATION COLORECTAL SCREENING DEPRESSION SCREENING BMI NUTRITION PHYSICAL ACTIVITY VISION Your next exam in: ALCOHOL USE TOBACCO USE SEXUALLY ACTIVE GLUCOSE SCREENING LIPID SCREENING [email or web address] Not available 08/28/2024 16:50:52 Reason for Referral Science Professor And Gynecologis t Referral for Gynecologic examination Referring Physician: Elvia Corrales [facility], Encounter Date: 10/12/2023 Duplicating Machine Mechanic 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 Referring Physician: Wilberto Mosley, Encounter Date: 10/12/2023 Referring Physician: Wilberto Mosley, Encounter Date: 10/12/2023 Casting Tester Referral for Pr oteinuria Referring Physician: Wilberto Mosley, Encounter Date: 10/12/2023 Science Professor And Gynecologis t Referral for Gynecologic examination Referring Physician: Wilberto Mosley, Encounter Date: 02/14/2024 Duplicating Machine Mechanic 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 Referring Physician: Wilberto Mosley, Encounter Date: 02/14/2024 Science Professor And Gynecologis t Referral for Gynecologic examination Please call patient to schedule an appointment. Thank you. 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 Thank you Referring Physician: Elvia Corrales Internal [facility], Encounter Date: 05/22/2024 Please call patient to sched ule an appointment. Thank you. Referring Physician: Elvia Corrales [facility], Encounter Date: 05/22/2024 Casting Tester Referral for Pr oteinuria Please call patient to schedule an appointment. Thank you. Referring Physician: Elvia Corrales [facility], Encounter Date: 05/22/2024 Science Professor And Gynecologis t Referral for Gynecologic examination Please call patient to schedule an appointment. Thank you. 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 Thank you Referring Physician: Elvia Corrales [facility], Encounter Date: 08/28/2024 Please call patient to sched ule an appointment. Thank you. Referring Physician: Elvia Corrales [facility], Encounter Date: 08/28/2024 Casting Tester Referral for Pr oteinuria Please call patient to schedule an appointment. Thank you. Referring Physician: Elvia Corrales [facility], Encounter Date: 08/28/2024 Body Bumper Referral for S leep apnea Please call patient to schedule an appointment. Thank you. Referring Physician: Wilberto Mosley Medicine, Encounter Date: 08/28/2024 Results Created Date Observation Date Name Description Value Unit Range Abnormal Flag Note LastModifiedBy Organization Detail LastModifiedTime 10/12/19 24 10/12/2023 CBC/C OMPLE TE BLD COUNT W/DIF F white blood cells 4.1 x10'3 /uL 4.2-10 .8 low Not Available [facility] (Lab) [address] [place], [address], 10/12/2023 14:38:02 10/12/19 24 10/12/2023 CBC/C OMPLE TE BLD COUNT W/DIF F red blood cells 5.26 x10'6 /uL 3.80-5 .20 high Not Available [facility] (Lab) [address] [place], [address], 10/12/2023 14:38:02 10/12/19 24 10/12/2023 CBC/C OMPLE TE BLD COUNT W/DIF F hemoglobin 11.8 g/dL 12.0-1 5.6 low Not Available [facility] (Lab) [address] [place], [address], 10/12/2023 14:38:02 10/12/19 24 10/12/2023 CBC/C OMPLE TE BLD COUNT W/DIF F hematocrit 39.4 % 35.7-4 5.7 Not Available [facility] (Lab) [address] [place], [address], 10/12/2023 14:38:02 10/12/19 24 10/12/2023 CBC/C OMPLE TE BLD COUNT W/DIF F mean red cell volume 74.9 fL 82.0-9 9.0 low Not Available [facility] (Lab) [address] [place], [address], 10/12/2023 14:38:02 10/12/19 24 10/12/2023 CBC/C OMPLE TE BLD COUNT W/DIF F mean red cell hemoglobin 22.4 pg 27.0-3 3.0 low Not Available [facility] (Lab) [address] [place], [address], 10/12/2023 14:38:02 10/12/19 24 10/12/2023 CBC/C OMPLE TE BLD COUNT W/DIF F mean RBC HGB concentratio n 29.9 g/dL 31.0-3 6.0 low Not Available [facility] (Lab) [address] [place], [address], 10/12/2023 14:38:02 10/12/19 24 10/12/2023 CBC/C OMPLE TE BLD COUNT W/DIF F red cell distribution width 15.8 % 11.8-1 5.5 high Not Available [facility] (Lab) [address] [place], [address], 10/12/2023 14:38:02 10/12/19 24 10/12/2023 CBC/C OMPLE TE BLD COUNT W/DIF F platelets 212 x10'3 /uL 150-40 0 Not Available [facility] (Lab) [address] [place], [address], 10/12/2023 14:38:02 10/12/19 24 10/12/2023 CBC/C OMPLE TE BLD COUNT W/DIF F mean platelet volume 13.4 fL 9.0-12 .4 high Not Available [facility] (Lab) [address] [place], [address], 10/12/2023 14:38:02 10/12/19 24 10/12/2023 CBC/C OMPLE TE BLD COUNT W/DIF F neutrophils 49.0 % 39.0-7 2.0 Not Available [facility] (Lab) [address] [place], [address], 10/12/2023 14:38:02 10/12/19 24 10/12/2023 CBC/C OMPLE TE BLD COUNT W/DIF F lymphocytes 40.3 % 16.0-4 7.0 Not Available [facility] (Lab) [address] [place], [address], 10/12/2023 14:38:02 10/12/19 24 10/12/2023 CBC/C OMPLE TE BLD COUNT W/DIF F monocytes 4.9 % 5.0-12 .0 low Not Available [facility] (Lab) [address] [place], [address], 10/12/2023 14:38:02 10/12/19 24 10/12/2023 CBC/C OMPLE TE BLD COUNT W/DIF F eosinophils 4.4 % 1.0-7. 0 Not Available [facility] (Lab) [address] [place], [address], 10/12/2023 14:38:02 10/12/19 24 10/12/2023 CBC/C OMPLE TE BLD COUNT W/DIF F basophils 1.2 % 0.0-2. 0 Not Available [facility] (Lab) [address] [place], [address], 10/12/2023 14:38:02 10/12/19 24 10/12/2023 CBC/C OMPLE TE BLD COUNT W/DIF F immature granulocytes 0.2 % 0.00-0 .50 Not Available [facility] (Lab) [address] [place], [address], 10/12/2023 14:38:02 10/12/19 24 10/12/2023 CBC/C OMPLE TE BLD COUNT W/DIF F neutrophils, absolute count 2.02 x10'3 /uL 1.5-8. 0 Not Available [facility] (Lab) [address] [place], [address], 10/12/2023 14:38:02 10/12/19 24 10/12/2023 CBC/C OMPLE TE BLD COUNT W/DIF F lymphocytes, absolute count 1.66 x10'3 /uL 1.07-3 .43 Not Available [facility] (Lab) [address] [place], [address], 10/12/2023 14:38:02 10/12/19 24 10/12/2023 CBC/C OMPLE TE BLD COUNT W/DIF F monocytes, absolute count 0.20 x10'3 /uL 0.29-0 .99 low Not Available [facility] (Lab) [address] [place], [address], 10/12/2023 14:38:02 10/12/19 24 10/12/2023 CBC/C OMPLE TE BLD COUNT W/DIF F eosinophils, absolute count 0.18 x10'3 /uL 0.02-0 .53 Not Available [facility] (Lab) [address] [place], [address], 10/12/2023 14:38:02 10/12/19 24 10/12/2023 CBC/C OMPLE TE BLD COUNT W/DIF F basophils, absolute count 0.05 x10'3 /uL 0.01-0 .08 Not Available [facility] (Lab) [address] [place], [address], 10/12/2023 14:38:02 10/12/19 24 10/12/2023 CBC/C OMPLE TE BLD COUNT W/DIF F immature granulocytes ,absolute 0.01 x10'3 /uL 0.00-0 .05 Not Available [facility] (Lab) [address] [place], [address], 10/12/2023 14:38:02 10/12/19 24 10/12/2023 CBC/C OMPLE TE BLD COUNT W/DIF F nucleated red blood cells 0.0 % -0 Not Available [facility] (Lab) [address] [place], [address], 10/12/2023 14:38:02 10/12/19 24 10/12/2023 CBC/C OMPLE TE BLD COUNT W/DIF F NRBC# 0.00 x10'3 /uL Not Available [facility] (Lab) [address] [place], [address], 10/12/2023 14:38:02 10/12/19 24 10/12/2023 CBC/C OMPLE TE BLD COUNT W/DIF F anisocytosis OCCASI ONAL Not Available [facility] (Lab) [address] [place], [address], 10/12/2023 14:38:02 10/12/19 24 10/12/2023 CBC/C OMPLE TE BLD COUNT W/DIF F poikilocytos is OCCASI ONAL Not Available [facility] (Lab) [address] [place], [address], 10/12/2023 14:38:02 10/12/19 24 10/12/2023 CBC/C OMPLE TE BLD COUNT W/DIF F hypochromia OCCASI ONAL Not Available [facility] (Lab) [address] [place], [address], 10/12/2023 14:38:02 10/12/19 24 10/12/2023 CBC/C OMPLE TE BLD COUNT W/DIF F microcytosis OCCASI ONAL Not Available [facility] (Lab) [address] [place], [address], 10/12/2023 14:38:02 10/12/19 24 10/12/2023 MICRO ALBUM IN RANDO M URINE microalbumin , urine 34.8 mg/L 0.0-16 .6 high Not Available [facility] (Lab) [address] [place], [address], 10/12/2023 14:43:31 10/12/19 24 10/12/2023 HEMOG LOBIN A1C HA1C 6.0 % 4.0-6. 0 Diabe he Scree domingo Crite ilsa: <5.7% Consi stent with absen ce of diabe he 5.7-6 .4% Consi stent with incre ased risk for diabe he (pred iabet es) >OR=6 .5% Consi stent with diabe he REFER ENCE: Diabe he Care 2016, 39(Jackson ppl.1 ):s13 -s22 Not Available [facility] (Lab) [address] [place], [address], 10/12/2023 17:00:04 10/12/19 24 10/12/2023 LIPID PANEL cholesterol 167 mg/dL 140-19 9 NIH KATIE NSUS RECOM MENDA TION FOR MARCK STERO L: ADULT CHILD LOW RISK: <200 <170 BORDE RLINE : <200- 239 ----- HIGH RISK: >240 >200 Not Available [facility] (Lab) [address] [place], [address], 10/12/2023 18:06:07 10/12/19 24 10/12/2023 LIPID PANEL triglyceride s 209 mg/dL 0-150 high NIH KATIE NSUS REPOR T RECOM MENDA TION FOR TRIGL YCERI DUNIA: ADULT CHILD LOW RISK: <150 ----- BODER LINE: 150-1 99 ----- HIGH RISK: >200 ----- Not Available [facility] (Lab) [address] [place], [address], 10/12/2023 18:06:07 10/12/19 24 10/12/2023 LIPID PANEL HDL cholesterol 44 mg/dL 40- Not Available [facility] (Lab) [address] [place], [address], 10/12/2023 18:06:07 10/12/19 24 10/12/2023 LIPID PANEL LDL cholesterol, calculated 81 mg/dL 0-130 NIH KATIE NSUS REPOR T RECOM MENDA TIONS FOR LDL: ADULT CHILD LOW RISK <130 <110 (OPTI MAL LDL) <100 ----- BORDE RLINE : 130-1 59 ----- HIGH RISK: >160 >130 A TRIGL YCERI DE RESUL T >400 INVAL IDATE S THE CALCU LATIO N FOR LDL FRACT IONAT ION - THE LDL RESUL T WILL NOT BE REPOR GIANCARLO. Not Available [facility] (Lab) [address] [place], [address], 10/12/2023 18:06:07 10/12/19 24 10/12/2023 COMPR EHENS DEEDEE METAB OLIC PANEL sodium 139 mmol/ L 137-14 5 Not Available [facility] (Lab) [address] [place], [address], 10/12/2023 18:06:13 10/12/19 24 10/12/2023 COMPR EHENS DEEDEE METAB OLIC PANEL potassium 4.1 mmol/ L 3.5-5. 1 Not Available [facility] (Lab) [address] [place], [address], 10/12/2023 18:06:13 10/12/19 24 10/12/2023 COMPR EHENS DEEDEE METAB OLIC PANEL chloride 111 mmol/ L 98-107 high Not Available [facility] (Lab) [address] [place], [address], 10/12/2023 18:06:13 10/12/19 24 10/12/2023 COMPR EHENS DEEDEE METAB OLIC PANEL carbon dioxide 26 mmol/ L 22-30 Not Available [facility] (Lab) [address] [place], [address], 10/12/2023 18:06:13 10/12/19 24 10/12/2023 COMPR EHENS DEEDEE METAB OLIC PANEL anion gap 6.1 mmol/ L 14-22 low Not Available [facility] (Lab) [address] [place], [address], 10/12/2023 18:06:13 10/12/19 24 10/12/2023 COMPR EHENS DEEDEE METAB OLIC PANEL glucose 125 mg/dL 70-99 high Not Available [facility] (Lab) [address] [place], [address], 10/12/2023 18:06:13 10/12/19 24 10/12/2023 COMPR EHENS DEEDEE METAB OLIC PANEL BUN 8 mg/dL 8-19 Not Available [facility] (Lab) [address] [place], [address], 10/12/2023 18:06:13 10/12/19 24 10/12/2023 COMPR EHENS DEEDEE METAB OLIC PANEL creatinine 0.91 mg/dL 0.66-1 .25 Not Available [facility] (Lab) [address] [place], [address], 10/12/2023 18:06:13 10/12/19 24 10/12/2023 COMPR EHENS DEEDEE METAB OLIC PANEL GFR >60 Refer ence Range : Bypro ge GFR Healt hy Adult : >60 mL/mi n/1.7 3 m2 Chron ic Kidne y Disea se: 15-60 mL/mi n/1.7 3 m2 Kidne y Failu re: <15/m L/min /1.73 m2 www.n iddk. nih.g ov The MDRD study equat ion has not been valid ated in child mahnaz <18 years of age; pregn ant women ; the elder ly >85 years of age; or in some racia l or ethni c subgr oups, such as Hisil nics. Outsi de the valid ated moe eters , estim ated GFR is less accur ate, requi ring clini rafy judgm ent on a case- by-ca se basis . Clini rafy inter preta tion for other races and ages must be made by the clini page. The MDRD study equat ion has not been valid ated for the evalu ation of serum creat inine relat ed to nutri jona l statu s or medic ation usage . For perso ns <18 years of age, a pedia tric GFR calcu lator is avail able on the F websi te: https ://елена beatty.o mani/pr patriciaess ional s/kdo qi/gf r_cal culat or Not Available [facility] (Lab) [address] [place], [address], 10/12/2023 18:06:13 10/12/19 24 10/12/2023 COMPR EHENS DEEDEE METAB OLIC PANEL alkaline phosphatase 75 U/L 38-126 Not Available [facility] (Lab) [address] [place], [address], 10/12/2023 18:06:13 10/12/19 24 10/12/2023 COMPR EHENS DEEDEE METAB OLIC PANEL alanine aminotransfe rase 37 U/L 0-35 high Not Available [facility] (Lab) [address] [place], [address], 10/12/2023 18:06:13 10/12/19 24 10/12/2023 COMPR EHENS DEEDEE METAB OLIC PANEL aspartate aminotransfe rase 32 U/L 15-37 Not Available [facility] (Lab) [address] [place], [address], 10/12/2023 18:06:13 10/12/19 24 10/12/2023 COMPR EHENS DEEDEE METAB OLIC PANEL bilirubin, total 0.40 mg/dL 0.20-1 .30 Not Available [facility] (Lab) [address] [place], [address], 10/12/2023 18:06:13 10/12/19 24 10/12/2023 COMPR EHENS DEEDEE METAB OLIC PANEL calcium 9.0 mg/dL 8.4-10 .2 Not Available [facility] (Lab) [address] [place], [address], 10/12/2023 18:06:13 10/12/19 24 10/12/2023 COMPR EHENS DEEDEE METAB OLIC PANEL total protein 6.9 g/dL 6.3-8. 2 Not Available [facility] (Lab) [address] [place], [address], 10/12/2023 18:06:13 10/12/19 24 10/12/2023 COMPR EHENS DEEDEE METAB OLIC PANEL albumin 3.8 g/dL 3.4-5. 0 Not Available [facility] (Lab) [address] [place], [address], 10/12/2023 18:06:13 10/12/19 24 10/12/2023 COMPR EHENS DEEDEE METAB OLIC PANEL globulin 3.1 g/dL 2.6-4. 2 Not Available [facility] (Lab) [address] [place], [address], 10/12/2023 18:06:13 10/12/19 24 10/12/2023 COMPR EHENS DEEDEE METAB OLIC PANEL A/G ratio 1.2 ratio 1.0-2. 0 Not Available [facility] (Lab) [address] [place], [address], 10/12/2023 18:06:13 10/12/19 24 10/12/2023 VITAM IN D 25-HY DROXY [id number] 21.8 NG/mL 30-100 low Vitam in D Statu s: Defic ient: <20 ng/mL Insuf ficie nt: 20-29 ng/mL Suffi cient : 30-10 0 ng/mL Not Available [facility] (Lab) [address] [place], [address], 10/12/2023 18:36:16 10/12/19 24 10/12/2023 T4 FREE free T4 1.15 NG/dL 0.78-2 .19 Not Available [facility] (Lab) [address] [place], [address], 10/12/2023 18:37:24 10/12/19 24 10/12/2023 TSH thyroid-stim ulating hormone 1.280 uIU/m L 0.465- 4.680 Not Available [facility] (Lab) [address] [place], [address], 10/12/2023 18:39:30 10/12/19 24 10/12/2023 VITAM IN B12 (POPEYE CHESTER ) vb12 428 pg/mL 239-93 1 Not Available [facility] (Lab) [address], [place], [address], 10/12/2023 19:12:42 10/12/19 24 10/12/2023 FOLAT E, SERUM /PLAS MA folate 8.60 NG/mL 2.76-2 0.0 Not Available [facility] (Lab) [address], [place], [address], 10/12/2023 19:12:47 Result Notes None recorded. Problems Name Problem SNOMED Code Status Onset Date Resolution Date Notes Provider Name and Address Organization Details Recorded Time Prediabetes 094587983 Active 2022 Elvia fox MD [address], [address], [place], [address], [employer] 3 15:36:20 Environment al allergy 200542910 Active 2022 Elvia fox MD [address], [address], [place], [address], [employer] 3 15:37:10 Low back pain 155680388 Active 2022 Elvia fox MD [address], [place], [address], [employer] 3 15:37:26 Vitamin D deficiency 08182470 Active 2022 Elvia fox MD [address], [address], [place], [address], [employer] 3 15:38:11 Serum vitamin B12 below reference range 343911328 Active 2022 Elvia fox MD [address], [address], [place], [address], [employer] 3 15:38:16 Moderate recurrent major depression 52112561 Active 2022 Elvia fox MD [address], [place], [address], [place] [facility] 3 15:38:33 Hyperlipide keiry 31126642 Active 2022 Vivi weston, [place] [facility] 3 15:15:19 Anemia 742037787 Active 2022 Vivi weston[place] [facility] 3 15:15:57 Lipoma of skin 197683607 Active 2022 Elvia fox MD [address], [address], [place], [address], [place] [facility] 3 16:04:26 Allergic rhinitis 55427448 Active 2022 Vivi weston[place] [facility] 3 14:46:25 Mass of soft tissue 143272581 Active 2022 Tony graham MD [address], [address], [place], [address], [place] [facility] 3 15:09:47 Mass of soft tissue 273663911 Active 2022 Tony garham MD [address], [address], [place], [address], [place] [facility] 3 15:10:14 Liver function tests outside reference range 497466349 Active 2022 Vivi weston[place] [facility] 3 10:29:12 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 2023 Elvia fox MD [address], [address], [place], [address], [place] [facility] 4 14:57:12 Obesity 592422094 Active 2023 Elvia fox MD [address], [address], [place], [address], [facility] 4 15:19:19 Neck swelling 612695204 Active 2023 Elvia fox MD [address], [address], [place], [address], [facility] 4 17:17:53 Proteinuria 98615868 Active 2023 Elvia fox MD [address], [address], [place], [address], [facility] 4 16:34:43 Asthma 861021508 Active 2023 Elvia fox MD [address], [address], [place], [address], [facility] 4 16:48:19 Hypertrigly ceridemia 698285117 Active 2023 Nafisa Fragoso MA null, [facility] 4 10:27:01 Liver enzymes level above reference range 939218812 Active 2023 Nafisa Fragoso [place] null, [place] [facility] 4 10:27:26 Folliculiti s 82308606 Active 2023 Elvia fox MD [address], [address], [place], [address], [facility] 4 17:01:22 Microcytosi s 084663476 Active 2024 Brittni Benoit [place] null, [place] [facility] 5 17:01:38 Spasm of muscle of lower back 0107286007892 9105 Active 2024 ANA Andrade null, [place] [facility] 5 16:18:40 Sleep apnea 07065188 Active 2024 Elvia fox MD [address], [place], [address], [facility] 5 17:23:47 Problem Notes None recorded. Procedures Surgical History Date Name Laterality Status Provider Name and Address Organization Details Recorded Time 4 endoscopic myomectomy completed Luna Lizarraga [place] [facility] [employer] [facility] 02/14/2024 16:24:41 3 Excisions - Specify completed Luna Lizarraga [facility] [employer] [facility] 03/22/2023 14:39:53 completed Luna Lizarraga [facility] [employer] [id number] 09/30/2022 15:26:06 Imaging Results None recorded. Procedure Notes None recorded. Medical Equipment None Reported. Allergies No known drug allergies Medications Name Sig Start Date Stop Date Status Note LastModified by Organization Details LastModified Time cyclobenzap rine 10 mg tablet Take 1 tablet every day by oral route at bedtime, for NEEDED. 2024 active Not Available Not Available Not Avai lable amoxicillin 500 mg capsule TAKE 1 CAPSULE BY MOUTH THREE TIMES DAILY UNTIL GONE 09/30 completed Not Available Not Available Not Available metformin 500 mg tablet TAKE 1 TABLET BY MOUTH TWICE DAILY active Not Available Not Available No t Available prednisone 10 mg tablet 02/13 completed Not Available Not Available Not Available cetirizine 10 mg tablet TAKE 1 TABLET BY MOUTH ONCE DAILY NEEDED active Not Available Not Available No t Available fluconazole 150 mg tablet 09/30 completed Not Available Not Available Not Available cephalexin 250 mg capsule Take 1 capsule every 6 hours by oral route for 7 days. 05/22 completed Not Available Not Available Not Available hydrocodone 5 mg-acetamin ophen 325 mg tablet TAKE 1 TABLET BY MOUTH EVERY 6 HOURS NEEDED FOR PAIN 09/30 completed Not Available Not Available Not Available topiramate 25 mg tablet 02/13 completed Not Available Not Available Not Available phentermine 37.5 mg tablet TAKE 1 TABLET BY MOUTH EVERY DAY 02/13 completed Not Available Not Available Not Available acetaminoph en 500 mg tablet TAKE 2 TABLETS BY MOUTH EVERY 6 HOURS active Not Available Not Available No t Available meloxicam 7.5 mg tablet TAKE 1 TABLET BY MOUTH TWICE DAILY NEEDED WITH FOOD 03/22 completed Not Available Not Available Not Available oxycodone-a cetaminophe n 5 mg-325 mg tablet TAKE 1 TABLET BY MOUTH EVERY 4 HOURS NEEDED FOR PAIN 03/22 completed Not Available Not Available Not Available alprazolam 0.25 mg tablet TAKE 1 TABLET BY MOUTH 45 MINUTES PRIOR TO MRI AND TAKE 1 TABLET AT THE START OF MRI 07/04 completed Not Available Not Available Not Available triamcinolo ne acetonide 0.025 % topical cream APPLY THIN LAYER OPICALLY TO AFFECTED AREAS 2 TIMES A DAY active Not Available Not Available No t Available ergocalcife rol (vitamin D2) 1,250 mcg (50,000 unit) capsule TAKE 1 CAPSULE BY MOUTH EVERY WEEK active Not Available Not Available No t Available ibuprofen 600 mg tablet TAKE 1 TABLET BY MOUTH EVERY 6 HOURS NEEDED FOR PAIN active Not Available Not Available No t Available hydroxyzine HCl 10 mg tablet TAKE 1 TABLET BY MOUTH TWICE DAILY NEEDED FOR ANXIETY active Not Available Not Available No t Available ondansetron 4 mg disintegrat ing tablet DISSOLVE 1 TABLET ON THE TONGUE EVERY 6 HOURS NEEDED FOR NAUSEA AND VOMITING 02/13 completed Not Available Not Available Not Available topiramate 100 mg tablet 02/13 completed Not Available Not Available Not Available fluticasone propionate 50 mcg/actuati on nasal spray,suspe nsion Arabi 1 spray every day by intranasa l route as needed. 08/28 completed Not Available Not Available Not Available naproxen 500 mg tablet TAKE 1 TABLET BY MOUTH EVERY 12 HOURS NEEDED 09/30 completed Not Available Not Available Not Available amoxicillin 875 mg-potassiu m clavulanate 125 mg tablet TAKE 1 TABLET BY MOUTH TWICE DAILY FOR 10 DAYS 09/30 completed Not Available Not Available Not Available oxycodone 5 mg tablet TAKE 1 TABLET BY MOUTH EVERY 6 HOURS NEEDED FOR PAIN 02/13 completed Not Available Not Available Not Available rosuvastati n 40 mg tablet TAKE 1 TABLET BY MOUTH EVERY DAY active Not Available Not Available No t Available bupropion HCl XL 150 mg 24 hr tablet, extended release TAKE 1 TABLET BY MOUTH DAILY IN THE MORNING 08/28 completed Not Available Not Available Not Available escitalopra m 5 mg tablet Take 1 tablet every day by oral route for 30 days. 2023 active Not Available Not Available Not Avai lable cholecalcif veronica (vitamin D3) 1,250 mcg (50,000 unit) capsule TAKE ONE CAPSULE BY MOUTH EVERY WEEK WITH OTC CALCIUM active Not Available Not Available No t Available FeroSul 325 mg (65 mg iron) tablet TAKE 1 TABLET BY MOUTH ONCE DAILY 02/13 completed Not Available Not Available Not Available Vascepa 1 gram capsule Take 2 capsules twice a day by oral route for 30 days. 02/13 completed Not Available Not Available Not Available Myfembree 40 mg-1 mg-0.5 mg tablet TAKE 1 TABLET BY MOUTH DAILY active Not Available Not Available No t Available Wegovy 0.25 mg/0.5 mL subcutaneou s pen injector Inject by subcutane ous route for 28 days. 07/04 completed Not Available Not Available Not Available Zepbound 2.5 mg/0.5 mL subcutaneou s pen injector Inject 2.5 mg every week by subcutane ous route for 30 days. 02/13 completed Not Available Not Available Not Available Vitals Date Recorded Body height Body mass index (BMI) Body weight Body temperature Heart rate Systolic And Diastolic Provider Name and Address Organization Details Last Updated DateTime 5 172.72 cm 47.6 kg/m2 983261. 41 g 97.5 [degF] 90 /min 120/74 mm[Hg] ANA Andrade [place] 5 15:05:40 Date Recorded Body height Body mass index (BMI) Body weight Body temperature Heart rate Oxygen saturation Oxygen saturation in Arterial blood by Pulse oximetry Pain severity - 0-10 verbal numeric rating [Score] - Reported Systolic And Diastolic Provider Name and Address Organization Details Last Updated DateTime 5 172.72 cm 48.8 kg/m2 062553. 15 g 97.6 [degF] 69 /min 97 % 97 % 0 118/74 mm[Hg] Latoya Khoury MA [place] [facility] [employer] [facility] 5 16:45:19 Date Recorded Body height Body mass index (BMI) Body weight Body temperature Heart rate Oxygen saturation Oxygen saturation in Arterial blood by Pulse oximetry Systolic And Diastolic Provider Name and Address Organization Details Last Updated DateTime 5 172.72 cm 48.5 kg/m2 897989. 97 g 98.5 [degF] 84 /min 97 % 97 % 116/74 mm[Hg] Brittni Benoit MA [employer] 5 14:17:48 Date Recorded Body height Body mass index (BMI) Body weight Body temperature Heart rate Oxygen saturation Oxygen saturation in Arterial blood by Pulse oximetry Systolic And Diastolic Provider Name and Address Organization Details Last Updated DateTime 4 172.72 cm 51.5 kg/m2 348956. 81 g 97.8 [degF] 104 /min 93 % 93 % 126/82 mm[Hg] Latoya Khoury MA [employer] 4 16:29:30 Date Recorded Body height Body mass index (BMI) Body weight Body temperature Heart rate Systolic And Diastolic Provider Name and Address Organization Details Last Updated DateTime 4 172.72 cm 49.1 kg/m2 544054. 34 g 98 [degF] 90 /min 122/64 mm[Hg] ANA Andrade [employer] 4 16:26:52 Social History Question Answer Notes LastModified by Organizat ion Details LastModified Time Tobacco Smoking Status Never Smoker ANA Andrade [facility] [employer] [facility] 09/30/2022 15:23:27 Do You Have An Advance Directive? No Information not available 09/30/2022 What Is Your Level Of Caffeine Consumption? Heavy Information not available 09/30/2022 In The 14 Days Before Symptom Onset, Have You Had Close Contact With A Laboratory-confir med COVID-19 While That Case Was Ill? No Information not available 09/30/2022 In The 14 Days Before Symptom Onset, Have You Had Close Contact With A Person Who Is Under Investigation For COVID-19 While That Person Was Ill? No Information not available 09/30/2022 What Type Of Diet Are You Following? REGULAR Information not available 09/30/2022 What Is The Highest Grade Or Level Of School You Have Completed Or The Highest Degree You Have Received? [id number] Information not available 09/30/2022 Do You Have An Electrostatic Air Filter? No Information not available 09/03/2024 Have There Been Any Changes To Your Family Or Social Situation? No Information no t available 08/28/2024 What Is The Fluoride Status Of Your Home? Unknown Information not available 09/30/2022 Are There Any Guns Present In Your Home? No Information not available 09/30/2022 Do You Have A Humidifier? No Information not available 09/03/2024 Do You Use Insect Repellent Routinely? No Information not available 08/28/2024 Where [facility] You Live? [facility] Information not available 09/30/2022 Do You Have A Medical Power Of Contract Forester? No Information not available 09/30/2022 Do You Have Moisture Problems In Your Home? No Information not available 09/03/2024 What Was The Date Of Your Most Recent Tobacco Screening? 09/03/2024 Information not available 09/03/2024 Do You Have Any Pets? Yes Information not available 09/30/2022 What Is Your Relationship Status? Single Information not available 09/30/2022 Do You Use Your Seat Belt Or Car Seat Routinely? Yes Information not available 09/30/2022 Do You Have Smoke And Carbon Monoxide Detectors In Your Home? Yes Information not available 09/30/2022 Are You Passively Exposed To Smoke? No Information no t available 09/30/2022 Are There Any Smokers In Your House? No Information not available 09/30/2022 Do You Use Sunscreen Routinely? No Information not available 08/28/2024 Has Tobacco Cessation Counseling Been Provided? No N/a Information not available 09/30/2022 Have You Recently Traveled Abroad? No Information not available 09/30/2022 Do You Have Any Dietary Restrictions? No Information not available 09/03/2024 Sex: Female Functional Status Question Answer Note LastModified by Organizat ion Details LastModified Time Do you use any illicit or recreational drugs? No Information not available 09/30/2022 Do you or have you ever used any other forms of tobacco or nicotine? No Information not available 09/30/2022 What is your level of alcohol consumption? Occasional Information not available 09/30/2022 Are you currently employed? Yes Information not available 09/30/2022 Have you been exposed to chemicals or toxins? 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 None Information not available 09/30/2022 Mental Status Question Answer Note LastModified by Organization D etails LastModified Time Do you feel stressed (tense, restless, nervous, or anxious, or unable to sleep at night)? [id number] Information not available 09/30/2022 Family History Relationship Description Onset Age of this Age Resolved Age Notes LastModified by Organization Details LastModified Time Mother Hypertensive disorder Not available 2022 15:20:44 Mother Diabetes mellitus Not available 2022 15:20:51 Mother Congestive heart failure [email or web address] Not available 2024 14:01:59 Mother Mixed anxiety and depressive disorder [email or web address] Not available 2024 14:01:59 Unspecified Relation Family history of malignant neoplasm both sides [email or web address] Not available 09/03/2024 14:01:59 Medical History Condition Response NERVE DISEASE N BLINDNESS N RHEUMATIC FEVER N KIDNEY STONES N BLADDER PROBLEMS N MRSA N OTHER # 1 N POLIO N LUNG DISEASE/DISORDER N HISTORY OF DRUG ABUSE N RADIATION / CHEMOTHERAPY N COPD N Other # 2 N BLOOD DISEASES N EAR OR HEARING PROBLEMS N MUMPS N SHINGLES N BOWEL PROBLEMS N DEPRESSION (INCLUDING POST ) N FAILED BACK SYNDROME N STROKE/TIA N ULCERS N BENIGN PROSTATIC HYPERPLASIA N MEASLES N HYPOTENSION N MYOCARDIAL INFARCTION N OBESITY N GERD/NAUSEA N ANEURYSM N URINARY/BLADDER/KIDNEY PROBLEMS N CORONARY ARTERY DISEASE (CAD) N Do you have Advance directive? N ADDICTION CONCERNS N Impotence N ENDOMETRIOSIS N USE OF BLOOD THINNERS N SKIN PROBLEMS N GASTROINTESTINAL DISORDER N PERIPHERAL VASCULAR DISEASE N MUSCLE,JOINT OR BONE PROBLEMS N GASTROINTESTINAL BLEEDING N BLOOD CLOTS N ASTHMA N CATARACTS N Abdominal Pain N ERECTILE DYSFUNCTION N ARTERIAL INSUFFICIENCY N VARICOSITIES N GI PROBLEMS N Low Testosterone N INFERTILITY N AIDS/HIV N CHEMOTHERAPY / RADIATION N LIVER DISEASE N MALE HYPOGONADISM N HYPERTENSION N Deficiency N TOURETTE'S N ANXIETY DISORDER N BLOOD TRANSFUSION N ANEMIA/BLOOD DISORDER N CHRONIC EAR INFECTIONS N TUBERCULOSIS N GLAUCOMA N FOOT PROBLEM N DIVERTICULITIS N SLEEP APNEA N CHICKENPOX N ALLERGIES/HAYFEVER N BACK INJECTIONS N INFECTIOUS DISEASE N PROSTATE N HEART ARRHYTHMIA N ESRD N INSOMNIA N HIGH CHOLESTEROL / HYPERLIPIDEMIA N EYE PROBLEMS N HYPERTHYROIDISM N PVD N EDEMA N CHRONIC PAIN SYNDROME N HYPOTHYROIDISM N CONSTIPATION N CAROTID BLOCKAGE N BACK / NECK PROBLEMS N ATHEROSCLEROSIS N BREAST PROBLEMS N DIALYSIS N POLYCYSTIC OVARIES N ECZEMA N OSTEOPOROSIS N ARTHRITIS N APPENDICITIS N DIABETES, TYPE N BAD TEETH N VON WILLIBRAND'S DISEASE N ENT N HEARTBURN / REFLUX N GI N AUTISM SPECTRUM DISORDER (ASD) N POST LAMINECTOMY SYNDROME N HEPATITIS / LIVER DISEASE N GOUT N SLEEP DISORDER N ALZHEIMER'S DISEASE N Brain Problems N DEMENTIA N HERPES N SEIZURES/EPILEPSY N HEADACHES/MIGRAINES N VASCULAR DISEASE N PACEMAKER N DIZZINESS N HEART DISEASE/HEART PROBLEMS N KIDNEY DISEASE N MULTIPLE SCLEROSIS N NEUROPSYCHOLOGICAL N CANCER: SPECIFY N CARDIAC ARRHYTHMIA N ATRIAL FIBRILLATION N Gall Stones N PULMONARY EMBOLISM N AUTOIMMUNE DISEASE N Gynecological History Statement/Question Response How many live births 2 Date of Last Pap Current Control Method BCPs Date of LMP Obstetrics History GPAL:G 3 P 2 0 1 2 Type Value Multiple Births 0 Full Term 2 Induced 0 Spontaneous 1 Premature 0 Living 2 Ectopics 0 Total 3 Immunizations Vaccine Type Date Status Note Provider Nam e and Address Organization Details Recorded Time Tdap 09/30/2022 completed Elvia Corrales MD [address] [facility], [address], [place], [address], [facility] 09/30/2022 18:04:59 Past Encounters Encounter ID Performer Location Encounter Start Date Encounter Closed Date Diagnosis/Indication Diagnosis SNOMED-CT Code Diagnosis ICD10 Code Diagnosis Note [id number] Elvia chi MD [facility] Med [address] [facility], [address] [place] [address] 09/30/2022 14:57:44 09/30/2022 16:27:08 Screening - NAD 887064521 Z13.9 Get yearly flu shot, get tdap if not doneGet COVID 19 vaccine and its boosters PAP: Get this done RTC in 3 months, do labs, ER if worse, she and her mother did verbalize her understand ing of the above Prediabetes 552700082 R7 3.03 History ofNot on any meds, get labs Environmental allergy 42 0532391 T78.49XA On cetrizine Low back pain 381911254 M54.50 Get xrays, may need to see PTGet on flexerill and mobicIf MRI is needed it will have to be open MRI Long-term drug therapy 456652466 Z79.899 Vitamin D deficiency 347 84545 E55.9 Serum samuel min B12 below reference range 967928344 R79.89 Moderate r ecurrent major depression 69576047 F33.1 Declines any meds at this time, states that she was anxious and depressed d/t loss of her brother in law in a [place] but is doing much better nowNot suicidal or homicidal Gynecologi c examination 02813488 Z01.419 Administra tion of diphtheria, pertussis, and tetanus vaccine 219547838 Z23 [id number] Elvia chi MD [facility] Internal [facility] [address] [facility] [address] [facility] [place] [address] 01/12/2023 14:35:52 01/12/2023 15:23:28 Screening - NAD 613557588 Z13.9 Get yearly flu shot, get tdap if not doneGet COVID 19 vaccine and its boosters PAP: Get this done RTC in 3 months, do labs, ER if worse, she and her mother did verbalize her understand ing of the above Prediabetes 974998285 R7 3.03 On metformin 500mg po bidGet labs Environmental allergy 42 9235827 T78.49XA On cetrizine Low back pain 673118271 M54.50 Get xrays, may need to see PT, this was ordered last OV but she did not yet do soGet on flexerill and mobicIf MRI is needed it will have to be open MRI Vitamin D deficiency 347 90596 E55.9 Given vit dRepeat the labs Serum samuel min B12 below reference range 310123246 R79.89 Moderate r ecurrent major depression 47603492 F33.1 OV 09/30/2022 Declines any meds at this time, states that she was anxious and depressed d/t loss of her brother in law in a [place] but is doing much better nowNot suicidal or homicidal Gynecologi c examination 92527290 Z01.419 Hyperlipidemia 19253883 E78.5 MildGet labs Anemia 558135430 D64.9 Likely from heavy menses, microcytic , needs to be on iron and also see her OB TIRSO Lipoma of skin 947716947 D17.30 Noted on the L lateral abd wall, will refer to Dr Bush [id number] Tony salgado MD [facility] General Surgery [address] [place] [address] 02/01/2023 10:54:22 03/16/2023 15:34:22 Mass of soft tissue 814310147 R22.9 Left flank [id number] Tony salgado MD [facility] General Surgery [address] [address] 03/01/2023 12:59:01 03/01/2023 16:04:56 [id number] Elvia chi MD [facility] Internal Med [address] [address] 03/22/2023 14:30:41 03/22/2023 15:09:21 Moderate recurrent major depression 31515385 F33.1 OV 09/30/2022 Declines any meds at this time, states that she was anxious and depressed d/t loss of her brother in law in a [facility] but is doing much better nowNot suicidal or homicidal OV 03/22/2023 :Will start on lexapro 5mg po daily, all side effects explained to her, also refer to Dr De La Cruz, she is agreeable to see him, not suicidal or homicidal, no ideation or attempts Steatotic liver disease 377269136 K76.0 US liver 03/17/[address] Bagley [facility] hepatology [id number] Elvia chi MD [facility] Internal Med [address] [facility] , [place] [address] 04/18/2023 14:39:29 04/18/2023 15:22:44 Screening - NAD 452712089 Z13.9 Get yearly flu shot, get tdap if not doneGet COVID 19 vaccine and its boosters PAP: Get this done RTC in 3 months, do labs, ER if worse, she and her mother did verbalize her understand ing of the above Prediabetes 278506941 R7 3.03 On metformin 500mg po bidGet labs Environmental allergy 42 2908334 T78.49XA On cetrizine Low back pain 413292631 M54.50 Get xrays, may need to see PT, this was ordered last OV but she did not yet do soOn flexerill and mobic Does well now 04/18/2023 If MRI is needed it will have to be open MRI Vitamin D deficiency 347 71407 E55.9 Given vit dRepeat the labs Serum samuel min B12 below reference range 975552751 R79.89 Moderate r ecurrent major depression 49899339 F33.1 OV 09/30/2022 Declines any meds at this time, states that she was anxious and depressed d/t loss of her brother in law in a [place] but is doing much better nowNot suicidal or homicidal On bupropion XL 150mgOn lexapro 5g dailySees Vinita Welch CONTRACTOR BUYER for Dr De La Cruz Gynecologi c examination 16363340 Z01.419 Hyperlipidemia 63866034 E78.5 MildGet labs Anemia 688843821 D64.9 Likely from heavy menses, microcytic , needs to be on iron and also see her OB TIRSO Lipoma of skin 334174865 D17.30 Noted on the L lateral abd wall, will refer to Dr Bush Steatotic liver disease 018456644 K76.0 US liver 03/17/[address] Yudi WYLIE hepatology Obesity 631000873 E66.9 Very eager to start on a GLP-1 for weight loss, denies any MCT or MEN 2 syndrome, or pancreatic or parathyroi d symptomsGe t on zepbound will come in a week for teaching [id number] Elvia chi MD [facility] Med Kassidy flores [address] [facility] , [facility] [place] [address] 05/11/2023 14:26:26 05/11/2023 15:04:22 Screening - NAD [id number] Z13.9 Get yearly flu shot, get tdap if not doneGet COVID 19 vaccine and its boosters PAP: Get this done RTC in 3 months, do labs, ER if worse, she and her mother did verbalize her understand ing of the above Obesity 585853568 E66.9 Very eager to start on a GLP-1 for weight loss, denies any MCT or MEN 2 syndrome, or pancreatic or parathyroi d symptomsGe t on zepbound will come in a week for teaching OV 05/11/2023 :Eager to start on phentermin e as her insurance has not approved any GLP-1All side [facility] [id number] Elvia chi MD [facility] Internal Med [facility] [address] [facility] [address] [place] [address] 07/05/2023 16:17:25 07/05/2023 17:19:00 Obesity 520050942 E66.9 Very eager to start on a GLP-1 for weight loss, denies any MCT or MEN 2 syndrome, or pancreatic or parathyroi d symptomsGe t on zepbound will come in a week for teaching OV 05/11/2023 :Eager to start on phentermin e as her insurance has not approved any GLP-1All side effects explained to [facility] in one month OV 07/05/2023 :Phentermi ne renewed, she did very well with it and did lose weight, RTC in one month Neck swelling 335575091 R22.1 Get US neck, concern for thyroid swelling, will also get TSH/FT4 done, may need to see ENT Kelly d if the swelling increases or if she has any pain, fevers, dysphagia etc, she will have to go to the ER [id number] Elvia chi MD [facility] Internal Med [address], [address] [place] [address] 08/09/2023 15:57:54 08/09/2023 16:57:22 Obesity 978956775 E66.9 Very eager to start on a GLP-1 for weight loss, denies any MCT or MEN 2 syndrome, or pancreatic or parathyroi d symptomsGe t on zepbound will come in a week for teaching OV 05/11/2023 :Eager to start on phentermin e as her insurance has not approved any GLP-1All side effects explained to [facility] in one month OV 07/05/2023 :Phentermi ne renewed, she did very well with it and did lose weight, RTC in one month OV 08/09/2023 : Renewed phentermin e 339<-343lb s [id number] Elvia chi MD [facility] Internal Med [facility] [address] [place] [address] [place] [address] 10/12/2023 16:12:13 10/12/2023 16:50:53 Obesity 442989030 E66.9 Very eager to start on a GLP-1 for weight loss, denies any MCT or MEN 2 syndrome, or pancreatic or parathyroi d symptomsGe t on zepbound will come in a week for teaching OV 05/11/2023 :Eager to start on phentermin e as her insurance has not approved any GLP-1All side effects explained to [facility] in one month OV 07/05/2023 :Phentermi ne renewed, she did very well with it and did lose weight, RTC in one month OV 08/09/2023 : Renewed phentermin e 339<-343lb s Screening - NAD 62286506 3 Z13.9 Get yearly flu shot, get tdap if not doneGet COVID 19 vaccine and its boosters PAP: Sees her OB and is to get on the OC but it is 'stuck in prior auth' RTC in 3 months, do labs, ER if worse, she and her mother did verbalize her understand ing of the above Prediabetes 590031788 R7 3.03 On metformin 500mg po bidGet labs Environmental allergy 42 7307269 T78.49XA On cetrizine Low back pain 208404113 M54.50 Get xrays, may need to see PT, this was ordered last OV but she did not yet do soOn flexerill and mobronnie, take ONLY as needed Does well now 04/18/2023 If MRI is needed it will have to be open MRI Vitamin D deficiency 347 59715 E55.9 Given vit dRepeat the labs Serum samuel min B12 below reference range 371775492 R79.89 Moderate r ecurrent major depression 61150349 F33.1 OV 09/30/2022 Declines any meds at this time, states that she was anxious and depressed d/t loss of her brother in law in a MCA but is doing much better nowNot suicidal or homicidal On bupropion XL 150mgOn lexapro 5g dailySees Vinita Welch CONTRACTOR BUYER for Dr De La Cruz Gynecologi c examination 14009380 Z01.419 Hyperlipidemia 32269676 E78.5 MildGet labs Anemia 091268065 D64.9 Likely from heavy menses, microcytic , needs to be on iron and also see her OB TIRSO Lipoma of skin 329441002 D17.30 Dr Bush 03/01/2023 , f/u PRN Steatotic liver disease 011903030 K76.0 US liver 03/17/[address] Bagley [facility] hepatology Proteinuria 26457004 R80 .9 Get a referral to nephrology Asthma 908156584 J45.90 9 Has used a HHN in the pastUses albuterol as needed [id number] Elvia chi MD [facility] Internal Med [address] [facility], [address] [place] [address] 02/14/2024 16:13:17 02/14/2024 17:02:57 Obesity 122374169 E66.9 Very eager to start on a GLP-1 for weight loss, denies any MCT or MEN 2 syndrome, or pancreatic or parathyroi d symptomsGe t on zepbound will come in a week for teaching OV 05/11/2023 :Eager to start on phentermin e as her insurance has not approved any GLP-1[facility] 07/05/2023 :Phentermi ne renewed, she did very well with it and did lose weight, RTC in one month OV 08/09/2023 : Renewed phentermin e 339<-343lb s Screening - NAD 70527242 3 Z13.9 Get yearly flu shot, get tdap if not doneGet COVID 19 vaccine and its boosters PAP: Sees her OB and is to get on the OC but it is 'stuck in prior auth' RTC in 3 months, do labs, ER if worse, she and her mother did verbalize her understand ing of the above Prediabetes 464597948 R7 3.03 On metformin 500mg po bidGet labs Environmental allergy 42 0930065 T78.49XA On cetrizine Low back pain 609078682 M54.50 Get xrays, may need to see PT, this was ordered last OV but she did not yet do soOn flexerill and mobic, take ONLY as needed Does well now 04/18/2023 If MRI is needed it will have to be open MRI OV 02/14/2024 :Get MRI, has declinedIs on flexeril, renewedMay need to see pain management has declined Vitamin D deficiency 347 64038 E55.9 Given vit dRepeat the labs Serum samuel min B12 below reference range 288985123 R79.89 Moderate r ecurrent major depression 46046848 F33.1 OV 09/30/2022 Declines any meds at this time, states that she was anxious and depressed d/t loss of her brother in law in a MCA but is doing much better nowNot suicidal or homicidal On bupropion XL 150mgOn lexapro 5g dailyOn hydroxyzin e 10mg bidSees Vinita Welch CONTRACTOR BUYER for Dr De La Cruz Gynecologi c examination 10893387 Z01.419 Hyperlipidemia 92005317 E78.5 MildGet labs Anemia 189086062 D64.9 Likely from heavy menses, microcytic , needs to be on iron and also see her OB ASAPDr Sandra's CONTRACTOR BUYER 11/01/2023 Lipoma of skin 026343264 D17.30 Dr Bush 03/01/2023 , f/u PRN Steatotic liver disease 094723232 K76.0 US liver 03/17/2023 See GI hepatology Proteinuria 84179760 R80 .9 Get a referral to nephrology Asthma 123492105 J45.90 9 Has used a HHN in the pastUses albuterol as needed Allergic rhinitis 234925 04 J30.9 Renewed the [facility] PRN 02/14/2024 Folliculitis 49332187 L7 3.9 Has noted a swelling in the L axilla, will get on keflex, if not better notify may need to see G surgery [id number] Elvia chi MD [facility] Internal Med [address] [address] [facility], [address] [place] [address] 05/22/2024 14:34:36 05/22/2024 15:48:46 Obesity 235415949 E66.9 Very eager to start on a GLP-1 for weight loss, denies any MCT or MEN 2 syndrome, or pancreatic or parathyroi d symptomsGe t on zepbound will come in a week for teaching OV 05/11/2023 :Eager to start on phentermin e as her insurance has not approved any GLP-1All side effects explained to herRTC in one month OV 07/05/2023 :Phentermi ne renewed, she did very well with it and did lose weight, RTC in one month OV 08/09/2023 : Renewed phentermin e 339<-343lb s OV 05/22/2024 : She is again going to call her insurance and see if she can be given Wegovy Screening - NAD 11862162 3 Z13.9 Get yearly flu shot, get tdap if not doneGet COVID 19 vaccine and its boosters PAP: Sees her OB and is to get on the OC but it is 'stuck in prior auth' RTC in 3 months, do labs, ER if worse, she and her mother did verbalize her understand ing of the above Prediabetes 802153608 R7 3.03 On metformin 500mg po bidGet labs Environmental allergy 42 8884352 T78.49XA On cetrizine Low back pain 257168475 M54.50 Get MRI, has declinedIs on flexerilMa y need to see pain management has declined Vitamin D deficiency 347 67434 E55.9 Given vit dRepeat the labs Serum samuel min B12 below reference range 930092790 R79.89 Moderate r ecurrent major depression 92601708 F33.1 OV 09/30/2022 Declines any meds at this time, states that she was anxious and depressed d/t loss of her brother in law in a MCA but is doing much better nowNot suicidal or homicidal On bupropion XL 150mgOn lexapro 5g dailyOn hydroxyzin e 10mg bidSees Vinita Welch CONTRACTOR BUYER for Dr De La Cruz Gynecologi c examination 87565283 Z01.419 Hyperlipidemia 91233692 E78.5 MildGet labs Anemia 652035197 D64.9 Likely from heavy menses, microcytic , needs to be on iron and also see her OB ASAPDr Sandra's CONTRACTOR BUYER 11/01/2023 Lipoma of skin 701490128 D17.30 Dr Bush 03/01/2023 , f/u PRN Steatotic liver disease 251500892 K76.0 US liver 03/17/2023 See GI hepatology Proteinuria 48412769 R80 .9 Get a referral to nephrology Asthma 527634592 J45.90 9 Has used a HHN in the pastUses albuterol as needed Allergic rhinitis 853754 04 J30.9 [facility] 02/14/2024 [id number] Elvia chi MD [facility] Internal Med [facility] [address] [facility], [place] [place] [address] 08/28/2024 16:32:39 08/28/2024 17:30:26 Obesity 486704778 E66.9 Very eager to start on a GLP-1 for weight loss, denies any MCT or MEN 2 syndrome, or pancreatic or parathyroi d symptomsGe t on zepbound will come in a week for teaching OV 05/11/2023 :Eager to start on phentermin e as her insurance has not approved any GLP-1All side effects explained to herRTC in one month OV 07/05/2023 :Phentermi ne renewed, she did very well with it and did lose weight, RTC in one month OV 08/09/2023 : Renewed phentermin e 339<-343lb s OV 05/22/2024 : She is again going to call her insurance and see if she can be given Wegovy OV 08/28/2024 :Cannot afford the GLP-1 Screening - NAD 36314241 3 Z13.9 Get yearly flu shot, get tdap if not doneGet COVID 19 vaccine and its boosters PAP: Sees her OB and is to get on the OC but it is 'stuck in prior auth' RTC in 3 months, do labs, ER if worse, she and her mother did verbalize her understand ing of the above Prediabetes 604797919 R7 3.03 On metformin 500mg po bidGet labs Environmental allergy 42 9791038 T78.49XA On cetrizine Low back pain 545484832 M54.50 Get MRI, has declinedIs on flexerilMa y need to see pain management has declined Vitamin D deficiency 347 85514 E55.9 Given vit dRepeat the labs Serum samuel min B12 below reference range 684989191 R79.89 Moderate r ecurrent major depression 52601840 F33.1 OV 09/30/2022 Declines any meds at this time, states that she was anxious and depressed d/t loss of her brother in law in a MCA but is doing much better nowNot suicidal or homicidal Not on bupropion XL 150mgOn lexapro 5g dailyOn hydroxyzin e 10mg bidSees Vinita Welch CONTRACTOR BUYER for Dr De La Cruz Gynecologi c examination 31189344 Z01.419 Hyperlipidemia 73441901 E78.5 On rosuvastat in 40mg dailyDiet and exerciseGe t labs Anemia 366075390 D64.9 Likely from heavy menses, microcytic , needs to be on iron and also see her OB ASAPDr Sandra's CONTRACTOR BUYER 11/01/2023 Lipoma of skin 667074541 D17.30 Dr Bush 03/01/2023 , f/u PRN Steatotic liver disease 608342226 K76.0 US liver 03/17/2023 See GI hepatology Proteinuria 39206650 R80 .9 Get a referral to nephrology Asthma 634844521 J45.90 9 Has used a HHN in the pastUses albuterol as needed Allergic rhinitis 917942 04 J30.9 Renewed the yrte PRN 02/14/2024 Sleep apnea 52562885 G47 .30 Has EDS and fatigue [id number] Elen Cuba NP [facility] Pulmonolo gy [place] [address] [facility] [address] [place] [address] 09/03/2024 13:59:43 09/04/2024 11:36:00 Sleep apnea 71143427 G47.30 G47.33 G47.10 Home sleep study order todayESS-1 3Discussed sleep hygeineAdv ised good sleep habits and patterns:- Set a goal for at least 7 to 8 hours of sleep time per day-Use the bed mainly for sleep and to go to bed only when tired. If unable to fall asleep after 30 minutes, patient should get out of bed but should not engage in any activity that requires sustained mental alertness. -Maintain a bedtime and wake-up time even on weekends or day off of work.-Avoi d excessive naps during the daytime. If a nap is necessary, limit to no more than 30 minutes.-M inimize enviroment al noise, bright lights, and extremitie s in bedroom temperatur es.-Avoid alcohol, caffeinate d beverages, and nicotine products for at least 6 hours prior to bedtime.-A void strenuous exercise and large meals for at least 4 hours prior to bedtime.-D iscussed reportable signs and symptoms of concernf/u after sleep study Health Concerns Section Related Observation LastModified by Organization Detai ls LastModified Time None Recorded Concern Status LastModified by Organization Details LastModified Time None Recorded Advance Directives Directive N: Payers Insurance Date Sequence Insurance Name Policy Number Policy Haq Covered Member ID Haq Member ID Guarantor Name 09/03/2024 1 [facility] Bree Delgado [id number] Bree Delgado 09/03/2024 2 MEDICAID-[place]: [place] [employer] Bree Delgado [id number] Bree Delgado OBGyn Episode No OBEpisode recorded.
--- NOTE | 2024-10-24 17:36 | WPDHOMESLEEP ---
Sleep Study - Home Unattended Date of Study: 10/08/24 Ordering Provider: Rosa Elena,Elen Jones HOME ENERGY AUDITOR-C Interpreting Provider: Kaya Chaudhry DO [place] Sleep Study Type: Watch PAT Height: 1.73 m Weight: 144.696 kg Body Mass Index: 48.4 Neck Circumference (inches): 16 Ruffin: 5 Reason for Sleep Study snoring, trouble falling/staying asleep Sleep History The patient is a 34-year-old female that had a sleep study ordered by her vice president for evaluation of sleep apnea. The patient admits to having difficulty falling asleep, staying asleep, loud snoring, and excessive daytime sleepiness. She denies interruptions in breathing while falling asleep. She denies choking or gasping at night. She denies having trouble breathing on her back. She does have morning headaches. She denies having a dry or sore mouth/throat in the morning. She denies nocturnal heartburn. She urinates twice throughout the night. She does have difficulty returning to sleep if she wakes up throughout the night. She does use hypnotics or sedatives. She denies feeling anxious about sleep. She does feel tired or sleepy during the day. She does feel tired in the morning. She denies having the urge to fall asleep during the day. She denies feeling drowsy while driving. She denies sleep paralysis, cataplexy, and hypnagogic/hypnopompic hallucinations. She denies clenching or grinding her teeth. She denies kicking or jerking her legs excessively. She denies having a restless feeling in her legs. She goes to bed at 11 p.m. every night. It takes her 1 hour to fall asleep. She gets 7 hours of sleep per night. Her sleep is much more restorative on days off. She denies taking any planned naps. She denies dream enactment behavior. She denies sleepwalking. She consumes 3 to 4 cups of a caffeinated beverage per day. She denies tobacco and alcohol use. She denies exercising on a regular basis. [facility] Past Medical History Medical History Prediabetes Hyperlipidemia Surgical History Surgical History History of delivery x 2 Family History Family History Mother Diabetes mellitus Heart disease Social History Social History Smoking status: Never smoker Alcohol intake: current Alcohol use details: occasional Substance use: never Living arrangements: with family Occupation/Education: occupation Gender identity (if verbalized by the patient): Female Sexual Orientation (if Verbalized by the Patient): Straight or Heterosexual Medications Home Medications ?Medication ?Instructions ?Recorded ?Confirmed ?Type cetirizine 10 mg tablet mg PO 02/15/23 03/24/23 History cholecalciferol (vitamin D3) 1,250 PO 02/15/23 03/24/23 History mcg (50,000 unit) capsule ferrous sulfate 325 mg (65 mg 325 mg PO 02/15/23 03/24/23 History iron) tablet (FeroSul) metformin 500 mg tablet 500 mg PO 02/15/23 03/24/23 History rosuvastatin 40 mg tablet 40 mg PO 02/15/23 03/24/23 History alprazolam 0.25 mg tablet (Xanax) 0.25 mg PO ONCE anxiety #1 tablet 06/16/23 Rx relugolix 40 mg-estradiol 1 1 tablet PO DAILY #30 tabs 08/11/23 Rx mg-norethindrone acetate 0.5 mg tablet (Myfembree) Sleep Procedure The sleep study was completed using [employer] a technically adequate device with seven channels: peripheral arterial tone, actigraphy, body position, snore, respiratory movement, pulse oximetry, sleep staging, and heart rate. Prior to using the device, the patient received verbal and written instructions for its application and was provided with the help desk phone number for additional telephonic instruction with 24-hour availability of qualified personnel to answer questions. The study was scored using CMS guidelines. Sleep Architecture The total recording time is 6 hrs, 34 min. The total sleep time is 5 hrs, 25 min. Sleep latency is 27 minutes. REM latency is 146 minutes. The patient had 4 episodes of waking. Sleep architecture shows 23.8% deep sleep, 58.8% light sleep, and (as % Total Sleep Time) showed NREM (Light 58.8%; Deep 23.8%), and a 17.4% stage REM. The patient spent 4.3% of total sleep time in the supine position. Sleep efficiency was 82.49. Respiratory Analysis The overall AHI (pAHI 4%:) is 2.1. The overall AHI (pAHI 3%:) is 5.6. The central AHI is 0.0. The AHI was 3.0 in NREM and 18.2 in REM sleep. The AHI was 25.9 in Supine and 4.7 in Non-supine sleep. Percent of Curtis Hong respirations is 0.0. Oximetry Data The oxygen desaturation index (SAL 4%:) is 2.3. The mean saturation is 94%, and the lowest saturation is 89%. Time spent with saturation < 88% is 0.0 minutes. Snoring Profile Snoring average intensity is 42 dB. The patient snored above 45 decibels for 12.5 minutes, 3.8% of sleep time. Cardiac Profile The average pulse rate is 86 beats per minutes. The lowest pulse rate is 61 bpm. The highest pulse rate reported is 146 bpm. Atrial fibrillation was not detected. Premature beats occur <0.1 per minute. Assessment and Plan Assessment and Plan (1) Sleep disturbances: Code(s): G47.9 - Sleep disorder, unspecified Status: Acute Assessment and Plan: The patient had an overall AHI of 2.1 down to 89%. This is not consistent with sleep-disordered breathing. If there are further concerns for a sleep disorder, I recommend that the patient have a split study with the use of a hypnotic to ensure we obtain enough sleep data. Data The data obtained during this sleep study is adequate for interpretation. Certification This sleep study has been reviewed by a board certified sleep medicine physician.
[2024-10-24 17:38] VITALS: BMI 48.4
== END 2024-10-09 08:31 | disposition home or self-care (01) ==
PROVIDERS: PCP Internal Medicine; Visit Provider Nurse Practitioner
DX: G47.33 Obstructive sleep apnea (adult) (pediatric) (principal); G47.10 Hypersomnia, unspecified
CPT/HCPCS: 95800

== ENCOUNTER 2024-12-07 14:20 | Outpatient (CLI) | payer OTHER, MEDICAID, SELFPAY ==
--- OUTSIDE RECORDS SUMMARY | 2023-10-28 09:00 | XMS_ITS ---
Author Organization [facility] Address [address] [address] [place] [address] Care Team Providers Care Senior Qa Analyst Name Role Phone Junior Fernandez Unavailable [phone] Problems Problem Type SNOMED Code ICD Code Onset Dates Problem Status W/U Status Risk Notes Problem Chronic kidney disease stage 1 (694423359) Chronic kidney disease, stage 1 (N18.1) Active confirmed Problem Fatty liver (056465747) Fatty (change of) liver, not elsewhere classified (K76.0) Active confirmed Encounters Encounter Location Date Provider Diagnosis [place] [address] [place] [address] 10/28/2023 Junior Fernandez Chronic kidney disease, stage 1 N18.1 ; Anemia, unspecified D64.9 ; Fatty (change of) liver, not elsewhere classified K76.0 and Proteinuria, unspecified R80.9 Assessments Encounter Date Diagnosis (ICD Code) Assessment Notes Treatment Notes Treatment Clinical Notes Section Notes 10/28/2023 Chronic kidney disease, stage 1 (ICD-10 - N18.1) 10/28/2023 Anemia, unspecified (ICD-10 - D64.9) 10/28/2023 Fatty (change of) liver, not elsewhere classified (ICD-10 - K76.0) 10/28/2023 Proteinuria, unspecified (ICD-10 - R80.9) Plan Of Treatment No Information Progress Notes * Bree YIDOB:[birth year] (34 yo F)Acc No.[id number]:10/28/2023 Progress Notes Patient: Bree RODAS Provider: Keisha DAVIDSON MD, F.A.C.P, F.A.S.N. :1990 A ge:33 Y S ex:Female Date:10/28/2023 [facility] Subjective: * Chief Complaints: * * Medical History: Objective: * Vitals: Assessment: * Assessment: 1. C hronic kidney disease, stage 1 - N18.1 (Primary) 2 . A nemia, unspecified - D64.9 3 . F atty (change of) liver, not elsewhere classified - K76.0 ? 4 . P roteinuria, unspecified - R80.9 Plan: * Treatment: * Billing Information: * Visit Code: 01536 Office Visit, New Pt., Level 5. * Procedure Codes: * Electronic signature of Rashida Fernandez MD on 12/07/2024 at 10:46 AM CDT Sign off status: Pending * Provider: Keisha DAVIDSON MD, F.A.C.P, F.A.S.N. Date: 0 10/28/2023 Generated for Printing/Faxing/eTransmitting on: 0 12/07/2024 10:46 AM CDT
--- OUTSIDE RECORDS SUMMARY | 2024-10-18 06:30 | XMS_ITS ---
Author Organization [facility] [email or web address] Address [facility] [address] Care Team Providers Care Clinical Athletic Instructor Name Role Phone Antoni JAQUEZ, Elvia Primary Care Provider Un available Vinita Martinez Unavailable [phone] REASON FOR VISIT Follow Up Social History Sex Assigned At : Social History Observation Description Sex Assigned At Female Encounters Encounter Location Date Provider Diagnosis [facility] [employer] [place] [id number] [address] 10/18/2024 Vinita Martinez Plan Of Treatment No Information Progress Notes * KAMERON YIDOB:[birth year] (34 yo F)Acc No.[id number]:10/18/2024 Patient: SUNNI RODASNEY Provider: ILDA DEL VALLE :1990 A ge:34 Y S ex:Female Date:10/18/2024 Address:[address] [place], [place] [address] Pcp:Elvia Corrales MD Subjective: * Chief Complaints: * F ollow Up Billing Information: * Procedure Codes: * Electronic signature of ILDA Xie on 12/07/2024 at 02:27 PM CDT Sign off status: Pending * Provider: ILDA DEL VALLE Date: 0 10/18/2024 Generated for Ramon trujillo/Jayro/Matthew on: 0 12/07/2024 02:27 PM CDT
--- NOTE | ~2024-12-07 | US_ITS ---
EXAMINATION: US venous doppler LE LT, 12/07/2024 14:40 CDT HISTORY: pain in lt leg Comparison: None Technique: Masterson-scale and color Doppler images were attempted of the lower saphenofemoral junction, common femoral vein,superficial femoral vein, proximal deep femoral vein, proximal deep femoral vein, popliteal vein and posterior tibial veins. Findings: Deep Venous System:Normal flow, augmentation and compressibility. No echogenic thrombus identified. The contralateral saphenofemoral junction appears unremarkable. Superficial Venous SystemNo superficial thrombophlebitis. Soft tissues: Soft tissues are unremarkable. Impression: Negative for DVT. Reviewed, dictated and finalized at location P. Impression: Negative for DVT.
--- OUTSIDE RECORDS SUMMARY | 2024-12-07 14:27 | XMS_ITS | Clinical Summary ---
Author Organization [facility] Care Team Providers Care Spring Up Supervisor Name Role Phone Unavailable Primary Care Provider [...] 3 - 3-dose series) 03/16/2000 01/20/2000, 10/22/1997 Pap Smear 02/25/2009 Human Papillomavirus (HPV) Immunization (1 - 3-dose SCDM series) 02/25/2015 Cervical Cancer Screening (CCS) 02/25/2018 HPV/Cotest 02/25/2018 [...]
--- OUTSIDE RECORDS SUMMARY | 2024-12-07 14:27 | XMS_ITS | Patient Health Record ---
Author Organization [facility] Address [address] [place] [place] [address] Reason For Referral No Information Problems Problem Type SNOMED Code ICD Code Onset Dates Problem Status W/U Status Risk Notes Problem Fatty liver (624473109) Fatty (change of) liver, not elsewhere classified (K76.0) Active confirmed Problem Chronic kidney disease stage 1 (001925346) Chronic kidney disease, stage 1 (N18.1) Active confirmed Plan Of Treatment No Information
--- OUTSIDE RECORDS SUMMARY | 2024-12-07 14:27 | XMS_ITS | Encounter Summary ---
Author Organization [facility] Health Address [address] [place] [address] Care Team Providers Care C D Still Operator Name Role Phone Elvia Corrales MD Primary Care Provider Reason for Visit * Reason Onset Date Comments Results 12/05/2024 Encounter Details Date Type Department Care Team (Late st Contact Info) Description 12/05/2024 Telephone [facility] [address] [place] [address] Luiza Dillard MD [address] [place] [address] Results Social History Tobacco Use Types Packs/Day Years [...] encounter Miscellaneous Notes * Telephone Encounter - Gina Boykin RN - 12/05/2024 2:21 PM CDT US results not finalized in chart. Will send to provider to advise. * Telephone Encounter - Lovely Cobb - 12/05/2024 2:11 PM CDT Good afternoon, Patient of Dr. Dillard calling today. She kindly asks to please speak with the nurse when available. She would like to go over her ultrasound results in detail. CB: [phone] Thank you so much documented in this encounter Plan of Treatment Not on file documented as of this encounter Visit Diagnoses Not on filedocumented in this encounter Care Teams C D Still Operator Relationship Specialty Start Date End Date Elvia Corrales MD [address] [address] PCP - General Internal Medicine 05/24/23 documented as of this encounter
--- OUTSIDE RECORDS SUMMARY | 2024-12-07 14:27 | XMS_ITS | Clinical Summary ---
Author Organization [facility] Address [address] [place] [address] Care Team Providers Care Student Services Rep Name Role Phone Jun Rodriguez MD Primary Care Provider + [phone] Allergies No known active allergies Medications Levonorgest-Eth [...] with HPV 02/25/2018 COVID-19 Vaccine ( season) 2024 Meningococcal B Vaccine Aged Out No l [...] patient's age to complete this [place] [address] [employer] Member Subscriber Plan / Payer (Ef fective 2017-Present) Name:Bree Delgado Relation to Subscriber:Self Name:Bree Delgado Payer ID:[id number] (NAIC) Type:Not on file Address: [address] [address] Care Teams Student Services Rep Relationship Specialty Start Date End Date Jun Rodriguez MD [address] [facility] [address] [place] [address] PCP - General FAMILY PRACTICE 11/26/17
--- OUTSIDE RECORDS SUMMARY | 2024-12-07 14:27 | XMS_ITS | Clinical Summary ---
Author Organization [facility] Address [address] [place] [address] Care Team Providers Care Sheep Boner Name Role Phone Dana Bowen DO Primary [...] on file Legal Sex Female 7:15 AM BAGMAN/WOMAN Gender Identity Not on file Sexual Orientation [...] (330 lb 11.1 oz) 04/21/2019 12:07 PM BAGMAN/WOMAN Height 172.7 cm (5' 8) 04/21/2019 12:07 PM BAGMAN/WOMAN Body Mass Index 50.28 04/21/2019 12:07 PM BAGMAN/WOMAN Plan of Treatment Not on file Insurance * Guarantor: Bree Delgado Account Type Relation to Patient Date of Phone Billing Address Personal/Family Self [address] [facility] * Guarantor: Bree Delgado Account Type Relation to Patient Date of Phone Billing Address Personal/Family Self [address] [place] [address] [facility] Care Teams Sheep Boner Relationship Specialty Start Date End Date Dana Bowen DO [address] [phone] PCP - General 04/21/19
--- OUTSIDE RECORDS SUMMARY | 2024-12-07 14:27 | XMS_ITS | Patient Health Record ---
Author Organization [facility] [address] Address [address] [place] [address] Care Team Providers Care Painter Rough Name Role Phone Antoni JAQUEZ, Elvia Primary Care Provider Un available Vinita Martinez Unavailable [phone] Allergies No Known Allergies Reason For Referral No Information Medications Medication SIG (Take, Route, Frequency, Duration) Notes Start Date End Date Status hydrOXYzine HCl 10 MG Tablet 1 tablet as needed Orally twice a day for anxiety 12/28/2023 Active Rosuvastatin Calcium 40 MG Tablet Oral 05/11/2023 Active Fluticasone Propionate Diskus 50 MCG/ACT Aerosol Powder Breath Activated Inhalation *Reorder from Global Registry of [email or web address] for eRx and Interaction Alerts* 05/11/2023 Unknown Wellbutrin XL 150 MG Tablet Extended Release 24 Hour 1 tablet in the morning Oral Once a day; Duration: 90 days Active MYFEMBREE 40 MG-1 MG-0.5 MG TABLET *Reorder from [employer] for eRx and Interaction Alerts* 05/11/2023 Active Cyclobenzaprine HCl 10 MG Tablet Oral 05/11/2023 Not-Taking Immunizations Vaccine Route Administration Date Status Comme nts Tdap Unknown 09/30/2022 Administered Social History Tobacco Use: Social History Observation Description Date Details (start date - stop date) Never Smoker NA - NA Sex Assigned At : Social History Observation Description Sex Assigned At Female Social History Miscellaneous: Social Info Question Answer Notes Advance Care Planning Are you your own decision-maker Yes Do you have Power of Certified Hand Therapist for Health or Medi rafy? No Tobacco Use: Social Info Question Answer Notes Tobacco Control (Standard) Tobacco use: Nonsmoker Additional Details Category Social Info Options Details Migrated Social History Migrated Social History Alcohol Intake: Occasional 05/11/2023,Tobacco Years: Never smoker 04/13/2023 Problems Problem Type SNOMED Code ICD Code Onset Dates Problem Status W/U Status Risk Notes Problem Severe recurrent major depression without psychotic features (18250456) Major depressive disorder, recurrent severe without psychotic features (F33.2) Active confirmed Problem Generalized anxiety disorder (43302929) Generalized anxiety disorder (F41.1) Active confirmed Encounters Encounter Location Date Provider Diagnosis [facility] [address] [place] [address] 12/28/2023 Vinita Martinez Major depressive disorder, recurrent severe without psychotic features F33.2 and Generalized anxiety disorder F41.1 [facility] [address] [place] [address] 11/29/2024 Vinita Martinez Assessments Encounter Date Diagnosis (ICD Code) Assessment [...] and importance of compliance. Plan Of Treatment No Information Insurance Providers Payer Name Payer Address Payer Phone Subscriber Number Group Number Insured Name Patient Relationship to Insured Coverage Start Date Coverage End Date [facility] [address] [place] [address] [id number] KAMERON YI Self - patient is the insured [place] [address] [address] [place] [address] [id number] KAMERON YI Self - patient is the [...]
--- OUTSIDE RECORDS SUMMARY | 2024-12-07 14:27 | XMS_ITS | Clinical Summary ---
Author Organization [facility] Address [address] [place] [address] Care Team Providers Care Freight Dispatcher Name Role Phone Elvia Corrales MD Primary Care Provider [phone] Allergies No known active allergies Medications acetaminophen (TYLENOL) 500 MG tablet Take 500 mg by mouth every 8 (eight) hours if needed Active buPROPion XL (WELLBUTRIN XL) 150 MG 24 hr tablet Take 1 tablet by mouth every morning Active cetirizine (ZyrTEC) 10 MG tablet Take 10 mg by mouth 1 (one) time each day if needed 3 Active cholecalciferol (VITAMIN D-3) 1.25 MG (76121 UT) capsule Take 50,000 Units by mouth 1 (one) time per week 5 Active cyclobenzaprine (FLEXERIL) 10 MG tablet Take 10 mg by mouth 4 Active escitalopram (LEXAPRO) 5 MG tablet Take 1 tablet by mouth 1 (one) time each day 4 Active fluticasone (FLONASE) 50 MCG/ACT nasal spray Administer 1 spray into each nostril Active hydrOXYzine (ATARAX) 10 MG tablet Take 1 tablet by mouth 2 (two) times a day if needed Active metFORMIN (GLUCOPHAGE) 500 MG tablet Take 1 tablet by mouth in the morning and 1 tablet in the evening. Active Relugolix-Estra diol-Norethind (Myfembree) 40-1-0.5 MG tablet Take 1 tablet by mouth 1 (one) time each day 4 Active rosuvastatin (CRESTOR) 40 MG tablet Take 1 tablet by mouth 1 (one) time each day Active ergocalciferol 1.25 MG (84642 UT) capsule Take 50,000 Units by mouth 1 (one) time per week Active Active Problems Problem Noted Date Diagnosed Date Body mass index 40+ - severely obese 10/30/2024 Asthma 10/30/2024 Chronic kidney disease stage 1 10/30/2024 Fatty liver 10/30/2024 Sleep apnea 08/28/2024 Hypertriglyceridemia 10/21/2023 Proteinuria 10/12/2023 Vitamin D deficiency 09/30/2022 Prediabetes 09/30/2022 Encounters Date Type Department Care Team Description 10/30/2024 11:00 AM CDT Office Visit [facility] [facility] [address] [facility] [address] [place] [address] Ash Beal MD Chronic kidney disease stage 1 (Primary Dx); Other proteinuria; Vitamin D deficiency, not otherwise specified; Prediabetes; Hypertriglyceridemia; Body mass index 40+ - severely obese <45.0-49.9> (HCC); Uncomplicated mild intermittent asthma, not otherwise specified; Fatty liver 10/30/2024 Orders Only [facility] [address] [facility] [place] [address] Ash Beal MD from Last 3 Months Social History Tobacco Use Types Packs/Day Years Used Date Smoking Tobacco: Never Assessed Comments Unknown Sex and Gender Information Value Date Recorded Sex Assigned at Not on file Legal Sex Female 4:59 PM EDT Gender Identity Not on file Sexual Orientation Not on file Last Filed Vital Signs Vital Sign Reading Time Taken Comments Blood Pressure 120/70 10/30/2024 11:08 AM CDT Pulse 68 10/30/2024 11:08 AM CDT Temperature 36.5 C (97.7 F) 10/30/2024 11:08 AM CDT Respiratory Rate 18 10/30/2024 11:08 AM CDT Oxygen Saturation 98% 10/30/2024 11:08 AM CDT Inhaled Oxygen Concentration - - Weight 146 kg (321 lb) 10/30/2024 11:08 AM CDT Height - - Body Mass Index - - Plan of Treatment Upcoming Encounters Date Type Department Care Team (Late st Contact Info) Description 12/11/2024 11:30 AM CDT Office Visit [facility] [address] [facility] [address] [place] [address] Ash Beal MD [address] [place] [address] Health Maintenance Due Date Last Done Comments Hepatitis B Vaccine (1 of 3 - 19+ 3-dose series) 02/25 Pneumococcal Vaccine: Peds ( 0 to 5 Years) and At-Risk Patients (6 to 49 Years) (1 of 2 - PCV) 02/25/2007 Influenza Vaccine (#1) 2024 12/24/2013 Procedures Procedure Name Priority Date/Time Associated Diagnosis Comments URINALYSIS RFX MICROSCOPIC Routine 10/30/2024 12:07 PM CDT HEMOGLOBIN A1C Routine 10/30/2024 12:07 PM CDT PROTEIN / CREATININE RATIO, URINE Routine 10/30/2024 12:07 PM CDT VITAMIN D 25 HYDROXY Routine 10/30/2024 12:07 PM CDT PTH, INTACT Routine 10/30/2024 12:07 PM CDT CBC AND DIFFERENTIAL Routine 10/30/2024 12:07 PM CDT COMPREHENSIVE METABOLIC PANEL Routine 10/30/2024 12:07 PM CDT PHOSPHATE ( PHOSPHORUS) Routine 10/30/2024 12:07 PM CDT LIPID PANEL Routine 10/30/2024 12:07 PM CDT from Last 3 Months Results * Protein, Total, Random Urine w/Creatinine (Protein/Creat Ratio) (10/30/2024 12:07 PM CDT) Creatinine, Ur 167 20 - 275 mg/dL [facility] Urine Protein/Creatin ine Ratio 84 24 - 184 mg/g creat [facility] Protein/Creatin ine Ratio, Urine 0.084 0.024 - 0.184 mg/mg creat [facility] Protein Urine Random 14 5 - 24 mg/dL [facility] 10/30/2024 12:0 7 PM CDT 10/30/2024 12:10 PM CDT Narrative Resulting Agency Comment Performing Organization Information: Site ID: [place] Name: [facility] Address: [address] [place], [place] [address] [address] Director: Alverto Ocasio MD us Ash Beal MD LAB URINE ORDERABLES Final R esult [facility] [address] [place], [place] [address] [address] * Urinalysis Reflex Microscopic (10/30/2024 12:07 PM CDT) Color, Urine YELLOW YELLOW [facility] Appearance Urine CLEAR CLEAR [facility] Specific [place], UA 1.022 1.001 - 1.035 [facility] pH Urine 8.0 5.0 - 8.0 [facility] Glucose, Ur NEGATIVE NEGATIVE [facility] Bilirubin, Urine NEGATIVE NEGATIVE [facility] Ketones, Urine NEGATIVE NEGATIVE [facility] Hemoglobin Ur Ql Strip NEGATIVE NEGATIVE [facility] Protein, Ur NEGATIVE NEGATIVE [facility] Nitrite, Urine NEGATIVE NEGATIVE [facility] WBC Esterase Urine NEGATIVE NEGATIVE [facility] WBC, Urine CANCELED < OR = 5 /HPF [facility] Comment:Result canceled by t he ancillary. RBC, Urine CANCELED < OR = 2 /HPF [facility] Comment:Result canceled by t he ancillary. Epithelial Cells in Urine CANCELED < OR = 5 /HPF [facility] Comment:Result canceled by t he ancillary. Trans Epithelial, Urine CANCELED < OR = 5 /HPF [facility] Comment:Result canceled by t he ancillary. Renal Epithelial Cells, Urine CANCELED < OR = 3 /HPF [facility] Comment:Result canceled by t he ancillary. Bacteria CANCELED NONE SEEN /HPF [facility] Comment:Result canceled by t he ancillary. Calcium Oxalate Crystals, Urine CANCELED NONE OR FEW /HPF [facility] Comment:Result canceled by t he ancillary. Triple Phosphate Crystals, Urine CANCELED NONE OR FEW /HPF [facility] Comment:Result canceled by t he ancillary. Uric Acid Crystals, Urine CANCELED NONE OR FEW /HPF [facility] Comment:Result canceled by t he ancillary. Amorphous Sediments CANCELED NONE OR FEW /HPF [facility] Comment:Result canceled by t he ancillary. Crystals CANCELED NONE SEEN /HPF [facility] Comment:Result canceled by t he ancillary. Hyaline Casts, Urine CANCELED NONE SEEN /LPF [facility] Comment:Result canceled by t he ancillary. Granular Casts, Urine CANCELED NONE SEEN /LPF [facility] Comment:Result canceled by t he ancillary. Casts CANCELED NONE SEEN /LPF [facility] Comment:Result canceled by t he ancillary. Yeast, UA CANCELED NONE SEEN /HPF [facility] Comment:Result canceled by t he ancillary. Comments CANCELED [facility] Comment:Result canceled by t he ancillary. 10/30/2024 12:0 7 PM CDT 10/30/2024 12:10 PM CDT Narrative Resulting Agency Comment Performing Organization Information: Site ID: [place] Name: [facility] Address: [address] [address] Director: Alverto Ocasio MD us Ash Beal MD LAB URINE ORDERABLES Final R esult [facility] [address] [place] [address] * (ABNORMAL) Vitamin D 25 Hydroxy (10/30/2024 12:07 PM CDT) Pathologist [facility] Vitamin D, 25-OH, Total, IA 23(L) 30 - 100 ng/mL [facility] Comment: Vitamin D Status 25-OH Vitamin D: Deficiency: <20 ng/mL Insufficiency: 20 - 29 ng/mL Optimal: > or = 30 ng/mL For 25-OH Vitamin D testing on patients on D2-supplementation and patients for whom quantitation of D2 and D3 fractions is required, the [facility](TM) 25-OH VIT D, (D2,D3), LC/MS/MS is recommended: order code 29736 (patients >2yrs). See Note 1 Note 1 For additional information, please refer to http://education.FireEye/faq/XAU006 (This link is being provided for informational/ educational purposes only.) 10/30/2024 12:0 7 PM CDT 10/30/2024 12:10 PM CDT Narrative Resulting Agency Comment Performing Organization Information: Site ID: [place] Name: [facility] Address: [address] [place] [address] Director: Alverto Ocasio MD us Ash Beal MD LAB BLOOD ORDERABLES Final R esult [facility] [place] [address] * (ABNORMAL) CBC and Differential (10/30/2024 12:07 PM CDT) [facility] WBC 5.5 3.8 - 10.8 Thousand/ uL [facility] RBC 5.23(H) 3.80 - 5.10 Million/u L [facility] Hemoglobin 12.0 11.7 - 15.5 g/dL [facility] Hematocrit 38.9 35.0 - 45.0 % [facility] MCV 74.4(L) 80.0 - 100.0 fL [facility] MCH 22.9(L) 27.0 - 33.0 pg [facility] MCHC 30.8(L) 32.0 - 36.0 g/dL [facility] Comment: For adults, a slight decrease in the calculated MCHC value (in the range of 30 to 32 g/dL) is most likely not clinically significant; however, it should be interpreted with caution in correlation with other red cell parameters and the patient's clinical condition. RDW 14.3 11.0 - 15.0 % [facility] Platelets 245 140 - 400 Thousand/ uL [facility] MPV 12.3 7.5 - 12.5 fL [facility] Neutrophils Absolute 3,157 1,500 - 7,800 cells/uL [facility] Band Neutrophils Absolute, Manual Count CANCELED 0 - 750 cells/uL [facility] Comment:Result canceled by t he ancillary. Metamyelocytes Absolute CANCELED 0 cells/uL [facility] Comment:Result canceled by t he ancillary. Absolute Myelocytes CANCELED 0 cells/uL [facility] Comment:Result canceled by t he ancillary. Absolute Promyelocytes CANCELED 0 cells/uL [facility] Comment:Result canceled by t he ancillary. Lymphocytes Absolute 1,832 850 - 3,900 cells/uL [facility] Monocytes Absolute 330 200 - 950 cells/uL [facility] Eosinophils Absolute 132 15 - 500 cells/uL [facility] Basophils Absolute 50 0 - 200 cells/uL [facility] Blasts Absolute CANCELED 0 cells/uL [facility] Comment:Result canceled by t he ancillary. NRBC Absolute CANCELED 0 cells/uL [facility] Comment:Result canceled by t he ancillary. Neutrophils Relative 57.4 % [facility] Bands Absolute CANCELED % [facility] Comment:Result canceled by t he ancillary. Metamyelocytes Percent CANCELED % [facility] Comment:Result canceled by t he ancillary. Myelocytes Relative CANCELED % [facility] Comment:Result canceled by t he ancillary. Promyelocytes Relative CANCELED % [facility] Comment:Result canceled by t he ancillary. Lymphocytes 33.3 % [facility] Variant lymphocytes/100 WBC (Bld) CANCELED 0 - 10 % [facility] Comment:Result canceled by t he ancillary. Monocytes 6.0 % [facility] Eosinophils 2.4 % [facility] Basophils Relative 0.9 % [facility] Blasts CANCELED % [facility] Comment:Result canceled by t he ancillary. nRBC CANCELED 0 /100 WBC [facility] Comment:Result canceled by t he ancillary. Comment(s) CANCELED [facility] Comment:Result canceled by t he ancillary. 10/30/2024 12:0 7 PM CDT 10/30/2024 12:10 PM CDT Narrative Resulting Agency Comment Performing Organization Information: Site ID: [place] Name: [facility] Address: [address] [place] [address] Director: Alverto Ocasio MD Ash Beal MD LAB BLOOD ORDERABLES Final R esult [facility] [address] [place] [phone] * Phosphorus (10/30/2024 12:07 PM CDT) Phosphorus 3.6 2.5 - 4.5 mg/dL [facility] 10/30/2024 12:0 7 PM CDT 10/30/2024 12:10 PM CDT Narrative Resulting Agency Comment Performing Organization Information: Site ID: [place] Name: [facility] Address: [address] [place] [address] Director: Alverto Ocasio MD Ash Beal MD LAB BLOOD ORDERABLES Final R esult Performing Organization Address City/[facility]/ZIP Co de Phone Number [facility] [address] [place] [address] * (ABNORMAL) PTH, Intact (10/30/2024 12:07 PM CDT) Parathyroid Hormone, Intact 98(H) 16 - 77 pg/mL [facility] Comment: Interpretive Guide Intact PTH Calcium ------- Normal Parathyroid Normal Normal Hypoparathyroidism Low or Low Normal Low Hyperparathyroidism Primary Normal or High High Secondary High Normal or Low Tertiary High High Non-Parathyroid Hypercalcemia Low or Low Normal High 10/30/2024 12:0 7 PM CDT 10/30/2024 12:10 PM CDT Narrative Resulting Agency Comment Performing Organization Information: Site ID: [place] Name: [facility] Address: [address] [facility] [place] [address] Director: Alverto Ocasio MD Ash Beal MD LAB BLOOD ORDERABLES Final R esult Performing Organization Address [facility] Co de Phone Number [facility] [address] [place] [address] * Hemoglobin A1c (10/30/2024 12:07 PM CDT) Hemoglobin A1C 5.4 <5.7 % of total Hgb [facility] Comment: For the purpose of screening for the presence of diabetes: <5.7% Consistent with the absence of diabetes 5.7-6.4% Consistent with increased risk for diabetes (prediabetes) > or =6.5% Consistent with diabetes This assay result is consistent with a decreased risk of diabetes. Currently, no consensus exists regarding use of hemoglobin A1c for diagnosis of diabetes in children. According to [place] Diabetes Association (ADA) guidelines, hemoglobin A1c <7.0% represents optimal control in non- diabetic patients. Different metrics may apply to specific patient populations. Standards of Medical Care in Diabetes(ADA). 10/30/2024 12:0 7 PM CDT 10/30/2024 12:10 PM CDT Narrative Resulting Agency Comment Performing Organization Information: Site ID: [place] Name: [facility] Address: [address] [place] [address] Director: Alverto Ocasio us Ash Beal MD LAB BLOOD ORDERABLES Final R esult [facility] [address] [place] [address] * (ABNORMAL) Lipid panel (10/30/2024 12:07 PM CDT) Cholesterol 155 <200 mg/dL [facility] HDL 40(L) > OR = 50 mg/dL [facility] Triglycerides 143 <150 mg/dL [facility] LDL Direct 91 mg/dL (calc) [facility] Comment: Reference range: <100 Desirable range <100 mg/dL for primary prevention; <70 mg/dL for patients with CHD or diabetic patients with > or = 2 CHD risk factors. LDL-C is now calculated using the Thomas-Lynsey calculation, which is a validated novel method providing better accuracy than the Friedewald equation in the estimation of LDL-C. Thomas SS et al. MOMO. 2013;310(19): 0276-1807 (http://education.Peekapak.InnerWorkings/faq/XHX206) Chol/HDL Ratio 3.9 <5.0 (calc) [facility] Non HDL Cholesterol 115 <130 mg/dL (calc) [facility] Comment: For patients with diabetes plus 1 major ASCVD risk factor, treating to a non-HDL-C goal of <100 mg/dL (LDL-C of <70 mg/dL) is considered a therapeutic option. 10/30/2024 12:0 7 PM CDT 10/30/2024 12:10 PM CDT Narrative Resulting Agency Comment Performing Organization Information: Site ID: [place] Name: [facility] Address: [address] [address] Director: Alverto Ocasio MD us Ash Beal MD LAB BLOOD ORDERABLES Final R esult [facility] [address] [address] * Comprehensive Metabolic Panel (10/30/2024 12:07 PM CDT) Glucose 82 65 - 99 mg/dL [facility] Comment: Fasting reference interval BUN 9 7 - 25 mg/dL [facility] Creatinine 0.78 0.50 - 0.97 mg/dL [facility] eGFR CKD-EPI CR 2020 101 > OR = 60 mL/min/1. 73m2 [facility] BUN/Creatinine Ratio SEE NOTE: 6 - 22 (calc) [facility] Comment: Not Reported: BUN and Creatinine are within reference range. Sodium 138 135 - 146 mmol/L [facility] Potassium 4.3 3.5 - 5.3 mmol/L [facility] Chloride 106 98 - 110 mmol/L [facility] Bicarbonate (CO2) 25 20 - 32 mmol/L [facility] Calcium 8.9 8.6 - 10.2 mg/dL [facility] Total Protein 6.7 6.1 - 8.1 g/dL [facility] Albumin 3.9 3.6 - 5.1 g/dL [facility] Globulin, Total 2.8 1.9 - 3.7 g/dL (calc) [facility] A/G Ratio 1.4 1.0 - 2.5 (calc) [facility] Total Bilirubin 0.2 0.2 - 1.2 mg/dL [facility] Alkaline Phosphatase 61 31 - 125 U/L [facility] AST (SGOT) 14 10 - 30 U/L [facility] ALT (SGPT) 12 6 - 29 U/L [facility] 10/30/2024 12:0 7 PM CDT 10/30/2024 12:10 PM CDT Narrative Resulting Agency Comment Performing Organization Information: Site ID: [place] Name: [facility] Address: [address] [place] [address] Director: Alverto Ocasio MD us Ash Beal MD LAB BLOOD ORDERABLES Final R esult [facility] [place] [facility] [address] [place] [address] from Last 3 Months Insurance Choice HMO ([id number]) Medicaid [place] Care Teams Freight Dispatcher Relationship Specialty Start Date End Date Elvia Corrales MD [address] [facility], [facility] [address] [place] [address] PCP - General Internal Medicine 05/24/24
--- OUTSIDE RECORDS SUMMARY | 2024-12-07 14:27 | XMS_ITS | Clinical Summary ---
Author Organization [facility] Address [address] [place] [address] Care Team Providers Care Manager Engagement Name Role Phone Elvia Corrales MD Primary Care Provider Source Comments [facility],non-owned Affiliates and Associated Physician Practices is amultiple site organization consisting of ambulatory clinics and hospital sitesin [place], [place], [place] and [place]. This disclosure is being madepursuant to the Care Everywhere program and may not contain all information available regarding this patient. Last updated 17.[facility] Allergies No known active allergies Medications * [...] for 14 days. 161 tablet 4 Active Additional Information Patient not taking.Reported on 11/15/2024 phentermine (Ionamine) 30 MG capsule Take 25 mg by mouth daily before breakfast Active ibuprofen (Motrin) 600 MG tablet Take 1 (one) tablet by mouth every 6 hours as needed for Pain 50 tablet 1 4 Active acetaminophen (Tylenol) 500 MG capsule Take 2 (two) capsules by mouth every 6 hours 50 capsule 1 4 Active Additional Information Patient not taking.Reported on 11/15/2024 oxyCODONE, immediate release, (Roxicodone) 5 MG tabletIndicatio ns:Postoperativ e state Take 1 (one) tablet by mouth every 6 hours as needed for Pain 12 tablet 4 Active Additional Information Patient not taking.Reported on 11/15/2024 ondansetron, disintegrating, (Zofran ODT) 4 MG tablet Take 1 (one) tablet by mouth every 6 hours as needed for Nausea/Vomiting Allow tablet to dissolve on the tongue 30 tablet 4 Active Additional Information Patient not taking.Reported on 11/15/2024 Myfembree 40-1-0.5 MG TABSIndications :Fibroid Take 1 tablet by mouth once daily 90 tablet 4 4 Active Additional Information Patient not taking.Reported on 11/15/2024 Cholecalciferol 1.25 MG (98593 UT) Take 50,000 Units by mouth 5 Active metFORMIN (Glucophage) 500 MG tablet Take 1 (one) tablet by mouth once daily Active Active Problems No known active problems Encounters Date Type Department Care Team Description 12/05/2024 Telephone [facility] - CELL [facility]DER [address] [place] [address] Luiza Kiran MD Results 12/04/2024 3:15 PM CDT Procedure visit [facility] - [facility]LL [facility] [address] [place] [address] Fibroid 12/04/2024 Travel 11/15/2024 9:45 AM CDT Office Visit [facility] - [facility] [address] [place] [address] Luiza Kiran MD Fibroid (Primary Dx) 11/15/2024 Travel 11/06/2024 Travel from Last 3 Months Family History Medical [...] Sign Reading Time Taken Comments Blood Pressure 116/84 11/15/2024 9:52 AM CDT Pulse 92 09/20/2023 5:12 PM CDT Temperature 36.6 C (97.9 F) 09/20/2023 3:08 PM CDT Respiratory Rate 16 09/20/2023 5:12 PM CDT Oxygen Saturation 94% 09/20/2023 5:12 PM CDT Inhaled Oxygen Concentration - - Weight 145.7 kg (321 lb 3.2 oz) 11/15/2024 9:52 AM CDT Height 172.7 cm (5' 8) 11/15/2024 9:52 AM CDT Body Mass Index 48.84 11/15/2024 9:52 AM CDT Plan of Treatment Health Maintenance Due Date Last Done Comments HIV SCREENING 02/25/2003 HEPATITIS C SCREENING 02/21/2006 DTAP/TDAP/TD VACCINES (1 - Tdap) 02/25/2007 HEPATITIS B VACCINE (1 of 3 - 19+ 3-dose series) 02/25/2007 PAP SMEAR 02/25/2009 HPV VACCINE (1 - 3-dose SCDM series) 02/25/2015 DEPRESSION SCREENING 03/14/2024 06/24/2023 COVID-19 VACCINE (2023-2 5 season) 2024 INFLUENZA VACCINE (#1) 2024 6, 12/24/2013 ZOSTER [...] on patient's age to complete this topic Procedures Procedure Name Priority Date/Time Associated Diagnosis Comments NON-OB PELVIC SONOGRAM Routine 12/04/2024 3:34 PM CDT Fibroid from Last 3 Months Results * NON-OB PELVIC SONOGRAM (12/04/2024 3:34 PM CDT) Linked Results Indication ======== Fibroids, unspecified S/p lapx myomectomy in 09/2023 History ====== Past surgical history section x 2 Assessment LMP on 11/12/2024. Day of cycle 23 Method ====== Transvaginal ultrasound. View: Sufficient Uterus ====== Visualized. Size 126 mm x 78 mm x 61 mm. Vol 313.0 cm Position: anteverted Myometrium: heterogeneous Endometrium: uniform echogenicity: hyperechogenic. Endometrial thickness, total 21.1 mm Cervix details: cystic lesions identified suggesting superficial Nabothian cysts Fibroid(s) 1. Size 31 mm x 27 mm x 29 mm. Mean 29.0 mm. Vol 12.746 cm . Intramural, left mid, Type 3 2. Size 13 mm x 10 mm x 13 mm. Mean 11.9 mm. Vol 0.869 cm . Submucosal, right endometrium, Type 1 3. Size 13 mm x 8 mm x 7 mm. Mean 9.4 mm. Vol 0.395 cm . Intramural, right mid, Type 2 vs. Type 3 4. Size 22 mm x 24 mm x 23 mm. Mean 22.9 mm. Vol 6.305 cm . Subserosal, left lateral, Type 6 Right Ovary ========= Normal. Size 29 mm x 19 mm x 26 mm. Vol 7.4 cm Left Ovary ======== Normal. Size 44 mm x 21 mm x 30 mm. Vol 14.8 cm Cul de Sac ========= Visualized. No free fluid visualized Comment ======== The uterus is anteverted and enlarged. The myometrium is heterogeneous with multiple fibroids, largest measured above. The endometrium is hyperechogenic and obscured by an intracavitary lesion. There is minimal color flow in the endometrium. A 3-D reconstruction of the uterus did not demonstrate any uterine abnormalities. Both ovaries appear normal in size, shape, and architecture. Impression ========= Fibroid uterus, with interval decrease in uterine size from previous MRI 06/2023 (measuring 18 x 10 x 10 cm at that time). Small submucosal myoma suspected based on 2D and 3D imaging. Coding ====== Diagnoses D25.9: Leiomyoma of uterus, unspecified Procedures 42322: US Transvaginal Non OB Kashmi PACS Anatomical Region Laterality Modality Other 12/04/2024 3:34 PM CDT Luiza Dillard MD [facility] ORDERABLES Edit ed Result - Final from Last 3 Months Insurance [facility] MEDICAID - [place] Care Teams Manager Engagement Relationship Specialty Start Date End Date Elvia Corrales MD [address] [phone] PCP - General Internal Medicine 05/24/23
--- OUTSIDE RECORDS SUMMARY | 2024-12-07 14:27 | XMS_ITS | Encounter Summary ---
Author Organization [facility] Address [address] [place] [address] Care Team Providers Care Material Clerk Name Role Phone Elvia Corrales MD Primary Care Provider Reason for Visit * Reason Onset Date Comments Med Question 10/10/2023 Insurance Issue/question 10/10/2023 Encounter Details Date Type Department Care Team (Late st Contact Info) Description 10/10/2023 Telephone [facility] - [facility]ACHINE OPERATOR [address] [place] [address] Luiza Dillard MD [address] [place] [address] Med Question; Insurance Issue/question Social [...] Approved on October 09 by [employer] [facility] Request Reference Number: [id number]. MYFEMBREE TAB is approved through 10/09/2024. Your [...] the PT's RX of Myfembree tablets. C/B [phone] documented in this encounter Plan of Treatment Not on file documented as of this encounter Visit Diagnoses Not on filedocumented in this encounter Care Teams Material Clerk Relationship Specialty Start Date End Date Elvia Corrales MD [address] [phone] PCP - General Internal Medicine 05/24/23 documented as of this encounter
--- OUTSIDE RECORDS SUMMARY | 2024-12-07 14:27 | XMS_ITS | Data Portability ---
Author Organization [place] - [facility], Main Office Address [address] [place] [address] Care Team Providers Care Drug Enforcement Administration Agent Name Role Phone JERALD BEDOLLA Planned Giving Officer RONY GARVIN Nailhead Operator ELVIA CORRALES Primary Care Provider [phone] LUIZA FRANCISCO Socially Responsible Investment Adviser [phone] Assessment Encounter Date Assessment Date Assessment LastModified [...] Modified Time Details Appointments Any 15 2024 10:15A Dhruv fox MD Not available Not available Not available Lab HbA1c (hemoglob in A1c), blood [address], [address] [place], [address], 08/28/2024 17:25:26 microalbu min, urine [email or web address] [place] [address], [address] [place], [address], 08/28/2024 17:25:26 lipid panel, serum [address], [address] [place], [address], 08/28/2024 17:25:27 CMP, serum or plasma [address], [address] [place], [address], 08/28/2024 17:25:28 CBC w/ auto diff [address], [address] [place], [address], 08/28/2024 17:25:28 TSH + free T4, serum [address], [address] [place], [address], 08/28/2024 17:25:28 vitamin D, 25-hydrox y, total, serum [address], [address] [place], [address], 08/28/2024 17:25:27 vitamin B12 + folate, serum or blood [address], [address] [place], [address], 08/28/2024 17:25:27 HbA1c (hemoglob in A1c), blood [address], [address] [place], [address], 11/20/2024 10:21:06 microalbu min, urine [address], [address] [place], [address], 11/20/2024 10:21:06 lipid panel, serum [address], [address] [place], [address], 10/22/2024 12:09:18 CMP, serum or plasma 2024 025 [facility], [address] [place], [address], 05/24/2024 12:30:09 CBC w/ auto diff 2024 025 [facility], [address] [place], [address], 05/24/2024 12:30:09 TSH + free T4, serum 2024 025 [facility], [address] [place], [address], 05/24/2024 12:30:09 vitamin D, 25-hydrox y, total, serum [address], [address] [place], [address], 11/20/2024 10:21:06 vitamin B12 + folate, serum or blood [address], [address] [place], [address], 11/20/2024 10:21:06 HbA1c (hemoglob in A1c), blood [address], [address] [place], [address], 08/14/2024 14:47:06 microalbu min, urine [address], [address] [place], [address], 08/14/2024 14:47:07 lipid panel, serum [address], [address] [place], [address], 07/18/2024 14:40:25 CMP, serum or plasma [address], [address] [place], [address], 07/18/2024 14:40:25 CBC w/ auto diff [address], [address] [place], [address], 07/18/2024 14:40:26 TSH + free T4, serum [address], [address] [place], [address], 07/18/2024 14:40:26 vitamin D, 25-hydrox y, total, serum [address], [address] [place], [address], 08/14/2024 14:47:07 vitamin B12 + folate, serum or blood [address], [address] [place], [address], 08/14/2024 14:47:07 HbA1c (hemoglob in A1c), blood [address], [address] [place], [address], 04/09/2024 14:07:00 microalbu min, urine 2023 024 GRANT [facility], [address] [place], [address], 10/20/2023 23:03:19 lipid panel, serum 2023 024 [facility], [address] [place], [address], 10/12/2023 18:06:07 CMP, serum or plasma 2023 024 [facility], [address] [place], [address], 10/12/2023 18:06:13 CBC w/ auto diff 2023 024 [facility], [address] [place], [address], 10/20/2023 23:03:18 TSH + free T4, serum [email or web address] [place] [address], [address] [place], [address], 03/15/2024 09:30:29 vitamin D, 25-hydrox y, total, serum 2023 024 [facility], [address] [place], [address], 10/13/2023 12:27:11 vitamin B12 + folate, serum or blood 2023 024 [facility], [address] [place], [address], 10/13/2023 12:27:11 Referral obstetric mya and gynecolog ist referral - Please call patient to schedule an appointme nt. Thank you. 2024 025 [email or web address] Luiza urrutia MD, [address], [place], [address], 11/29/2024 09:07:10 nephrolog ist referral - Please call patient to schedule an appointme nt. Thank you. 2024 025 [email or web address] Chrisjo Funk DO, [address] [facility], [place], [address], 11/29/2024 09:07:14 gastroent erologist referral - Please call patient to schedule an appointme nt. Thank you 2024 025 [email or web address] Layo Bagley MD, [address] [place], [address], 11/29/2024 09:07:12 hematolog ist referral - Please call patient to schedule an appointme nt. Thank you. 2024 025 [email or web address] Billy Flores MD, [address], [place], [address], 11/29/2024 09:07:13 pulmonolo gist referral - Please call patient to schedule an appointme nt. Thank you. 2024 025 [email or web address] Elen Cuba EMBEDDED SOFTWARE ARCHITECT, [address] [facility], [facility] [address], [place], [address], 11/29/2024 09:07:14 obstetric mya and gynecolog ist referral - Please call patient to schedule an appointme nt. Thank you. 2024 025 [email or web address] [facility] Ivan urrutia MD, [address] [facility], [place], [address], 08/21/2024 14:53:57 nephrolog ist referral - Please call patient to schedule an appointme nt. Thank you. 2024 025 [email or web address] Chris Funk DO, [address], [address], [place], [address], 06/19/2024 08:55:11 gastroent erologist referral - Please call patient to schedule an appointme nt. Thank you 2024 025 [email or web address] Bagley MD, [address] [place], [address], 06/19/2024 08:55:42 hematolog ist referral - Please call patient to schedule an appointme nt. Thank you. 2024 025 [email or web address] Billy Flores MD, [address], [place], [address], 08/21/2024 14:53:59 obstetric mya and gynecolog ist referral 2023 024 [email or web address] Luiza urrutia MD, [address] [facility], [place], [address], 02/15/2024 08:51:27 nephrolog ist referral - Please call patient to schedule. 2023 024 [email or web address] Junior Fernandez MD (Nephrology, [address], [address], [place], [address], 11/19/2024 16:19:35 gastroent erologist referral 2023 024 [email or web address] Layo Bagley MD, [address] [place], [address], 02/15/2024 08:51:28 hematolog ist referral 2023 024 Billy Flores MD, [address], [place], [address], 02/15/2024 08:51:29 obstetric mya and gynecolog ist referral 2023 024 [email or web address] Keshav Dill MD, [address], [address], [place], [address], 04/09/2024 14:07:19 nephrolog ist referral 2023 024 [email or web address] Junior Fernandez MD (Nephrology, [address], [address], [place], [address], 02/15/2024 08:52:36 gastroent erologist referral 2023 024 [email or web address] Layo Bagley MD, [address] [place], [address], 04/09/2024 14:07:20 hematolog ist referral 2023 024 GRANT Flores MD, [address], [place], [address], 11/08/2023 08:45:43 Procedures None recorded. Surgeries None recorded. Imaging home sleep study - Please call patient to schedule. 2024 025 [facility] ([facility]), [address] [place], [address], 10/23/2024 16:07:52 Medication Orders cholecalc iferol (vitamin D3) 1,250 mcg (50,000 unit) capsule 2024 025 [facility][id number], [address], [place], [place], [id number], 08/28/2024 17:08:40 Zyrtec 10 mg tablet 2023 024 [facility] #[id number], [address], [place], [place], [id number], 02/14/2024 17:02:34 cyclobenz aprine 10 mg tablet 2023 024 [facility] #[id number], [address], [place], [place], [id number], 02/14/2024 17:02:38 cephalexi n 250 mg capsule [email or web address] [place] [address] [facility][id number], [address], [place], [place], [id number], 05/22/2024 15:02:47 Patient TargetsNo targets recorded. Patient Instructions Encounter Date Encounter Id Patient Instructions Last Modified By Organization Details Last Modified Time 08/28/2024 [id number] INFLUENZA VACCIN E TD/TDAP MAMMOGRAM CERVICAL SCREENING/PELVIC EXAMINATION COLORECTAL SCREENING DEPRESSION SCREENING BMI NUTRITION PHYSICAL ACTIVITY VISION Your next exam in: ALCOHOL USE TOBACCO USE SEXUALLY ACTIVE GLUCOSE SCREENING LIPID SCREENING [email or web address] Not available 08/28/2024 16:50:52 Reason for Referral Pediatric Nephrologist And Gynecologis t Referral for Gynecologic examination Referring Physician: Elvia Corrales Internal Medicine, Encounter Date: 10/12/2023 Nailhead Operator 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 Referring Physician: Wilberto Mosley, Encounter Date: 10/12/2023 Referring Physician: Wilberto Mosley, Encounter Date: 10/12/2023 Press Supervisor Referral for Pr oteinuria Referring Physician: Wilberto Mosley, Encounter Date: 10/12/2023 Pediatric Nephrologist And Gynecologis t Referral for Gynecologic examination Referring Physician: Wilberto Mosley, Encounter Date: 02/14/2024 Nailhead Operator 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 Referring Physician: Wilberto Mosley, Encounter Date: 02/14/2024 Pediatric Nephrologist And Gynecologis t Referral for Gynecologic examination Please call patient to schedule an appointment. Thank you. 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 Thank you Referring Physician: Elvia Corrales Internal Medicine, Encounter Date: 05/22/2024 Please call patient to sched ule an appointment. Thank you. Referring Physician: Elvia Corrales Internal Medicine, Encounter Date: 05/22/2024 Press Supervisor Referral for Pr oteinuria Please call patient to schedule an appointment. Thank you. Referring Physician: Elvia Corrales Internal Medicine, Encounter Date: 05/22/2024 Pediatric Nephrologist And Gynecologis t Referral for Gynecologic examination Please call patient to schedule an appointment. Thank you. 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 Thank you Referring Physician: Wilberto Mosley Medicine, Encounter Date: 08/28/2024 Please call patient to sched ule an appointment. Thank you. Referring Physician: Elvia Corrales Internal Medicine, Encounter Date: 08/28/2024 Press Supervisor Referral for Pr oteinuria Please call patient to schedule an appointment. Thank you. Referring Physician: Elvia Corrales Internal Medicine, Encounter Date: 08/28/2024 Social Group Worker Referral for S leep apnea Please call patient to schedule an appointment. Thank you. Referring Physician: Wilberto Mosley Medicine, Encounter Date: 08/28/2024 Results Created Date Observation Date Name Description Value Unit Range Abnormal Flag Note LastModifiedBy Organization Detail LastModifiedTime 10/12/19 24 10/12/2023 CBC/C OMPLE TE BLD COUNT W/DIF F white blood cells 4.1 x10'3 /uL 4.2-10 .8 low Not Available [facility] (Lab) [address] [place], [address], 10/12/2023 14:38:02 10/12/19 24 10/12/2023 CBC/C OMPLE TE BLD COUNT W/DIF F red blood cells 5.26 x10'6 /uL 3.80-5 .20 high Not Available [facility] (Lab) [address] [place], [address], 10/12/2023 14:38:02 10/12/19 24 10/12/2023 CBC/C OMPLE TE BLD COUNT W/DIF F hemoglobin 11.8 g/dL 12.0-1 5.6 low Not Available [facility] (Lab) [address] [place], [address], 10/12/2023 14:38:02 10/12/19 24 10/12/2023 CBC/C OMPLE TE BLD COUNT W/DIF F hematocrit 39.4 % 35.7-4 5.7 Not Available [facility] (Lab) [address] [place], [address], 10/12/2023 14:38:02 10/12/19 24 10/12/2023 CBC/C OMPLE TE BLD COUNT W/DIF F mean red cell volume 74.9 fL 82.0-9 9.0 low Not Available [facility] (Lab) [address] [place], [address], 10/12/2023 14:38:02 10/12/19 24 10/12/2023 CBC/C OMPLE TE BLD COUNT W/DIF F mean red cell hemoglobin 22.4 pg 27.0-3 3.0 low Not Available [facility] (Lab) [address] [place], [address], 10/12/2023 14:38:02 10/12/19 24 10/12/2023 CBC/C OMPLE TE BLD COUNT W/DIF F mean RBC HGB concentratio n 29.9 g/dL 31.0-3 6.0 low Not Available [facility] (Lab) [address] [place], [address], 10/12/2023 14:38:02 10/12/19 24 10/12/2023 CBC/C OMPLE TE BLD COUNT W/DIF F red cell distribution width 15.8 % 11.8-1 5.5 high Not Available [facility] (Lab) [address] [place], [address], 10/12/2023 14:38:02 10/12/19 24 10/12/2023 CBC/C OMPLE TE BLD COUNT W/DIF F platelets 212 x10'3 /uL 150-40 0 Not Available [facility] (Lab) [address] [place], [address], 10/12/2023 14:38:02 10/12/19 24 10/12/2023 CBC/C OMPLE TE BLD COUNT W/DIF F mean platelet volume 13.4 fL 9.0-12 .4 high Not Available [facility] (Lab) [address] [place], [address], 10/12/2023 14:38:02 10/12/19 24 10/12/2023 CBC/C OMPLE TE BLD COUNT W/DIF F neutrophils 49.0 % 39.0-7 2.0 Not Available [facility] (Lab) [address] [place], [address], 10/12/2023 14:38:02 10/12/19 24 10/12/2023 CBC/C OMPLE TE BLD COUNT W/DIF F lymphocytes 40.3 % 16.0-4 7.0 Not Available [facility] (Lab) [address] [place], [address], 10/12/2023 14:38:02 10/12/19 24 10/12/2023 CBC/C OMPLE TE BLD COUNT W/DIF F monocytes 4.9 % 5.0-12 .0 low Not Available [facility] (Lab) [address] [place], [address], 10/12/2023 14:38:02 10/12/19 24 10/12/2023 CBC/C OMPLE TE BLD COUNT W/DIF F eosinophils 4.4 % 1.0-7. 0 Not Available [facility] (Lab) [address] [place], [address], 10/12/2023 14:38:02 10/12/19 24 10/12/2023 CBC/C OMPLE TE BLD COUNT W/DIF F basophils 1.2 % 0.0-2. 0 Not Available [facility] (Lab) [address] [place], [address], 10/12/2023 14:38:02 10/12/19 24 10/12/2023 CBC/C OMPLE TE BLD COUNT W/DIF F immature granulocytes 0.2 % 0.00-0 .50 Not Available [facility] (Lab) [address] [place], [address], 10/12/2023 14:38:02 10/12/19 24 10/12/2023 CBC/C OMPLE TE BLD COUNT W/DIF F neutrophils, absolute count 2.02 x10'3 /uL 1.5-8. 0 Not Available [facility] (Lab) [address] [place], [address], 10/12/2023 14:38:02 10/12/19 24 10/12/2023 CBC/C OMPLE TE BLD COUNT W/DIF F lymphocytes, absolute count 1.66 x10'3 /uL 1.07-3 .43 Not Available [facility] (Lab) [address] [place], [address], 10/12/2023 14:38:02 10/12/19 24 10/12/2023 CBC/C OMPLE TE BLD COUNT W/DIF F monocytes, absolute count 0.20 x10'3 /uL 0.29-0 .99 low Not Available [facility] (Lab) [address] [place], [address], 10/12/2023 14:38:02 10/12/19 24 10/12/2023 CBC/C OMPLE TE BLD COUNT W/DIF F eosinophils, absolute count 0.18 x10'3 /uL 0.02-0 .53 Not Available [facility] (Lab) [address] [place], [address], 10/12/2023 14:38:02 10/12/19 24 10/12/2023 CBC/C OMPLE TE BLD COUNT W/DIF F basophils, absolute count 0.05 x10'3 /uL 0.01-0 .08 Not Available [facility] (Lab) [address] [place], [address], 10/12/2023 14:38:02 10/12/19 24 10/12/2023 CBC/C OMPLE TE BLD COUNT W/DIF F immature granulocytes ,absolute 0.01 x10'3 /uL 0.00-0 .05 Not Available [facility] (Lab) [address] [place], [address], 10/12/2023 14:38:02 10/12/19 24 10/12/2023 CBC/C OMPLE TE BLD COUNT W/DIF F nucleated red blood cells 0.0 % -0 Not Available [facility] (Lab) [address] [place], [address], 10/12/2023 14:38:02 10/12/19 24 10/12/2023 CBC/C OMPLE TE BLD COUNT W/DIF F NRBC# 0.00 x10'3 /uL Not Available [facility] (Lab) [address] [place], [address], 10/12/2023 14:38:02 10/12/19 24 10/12/2023 CBC/C OMPLE TE BLD COUNT W/DIF F anisocytosis OCCASI ONAL Not Available [facility] (Lab) [address] [place], [address], 10/12/2023 14:38:02 10/12/19 24 10/12/2023 CBC/C OMPLE TE BLD COUNT W/DIF F poikilocytos is OCCASI ONAL Not Available [facility] (Lab) [address] [place], [address], 10/12/2023 14:38:02 10/12/19 24 10/12/2023 CBC/C OMPLE TE BLD COUNT W/DIF F hypochromia OCCASI ONAL Not Available [facility] (Lab) [address] [place], [address], 10/12/2023 14:38:02 10/12/19 24 10/12/2023 CBC/C OMPLE TE BLD COUNT W/DIF F microcytosis OCCASI ONAL Not Available [facility] (Lab) [address] [place], [address], 10/12/2023 14:38:02 10/12/19 24 10/12/2023 MICRO ALBUM IN RANDO M URINE microalbumin , urine 34.8 mg/L 0.0-16 .6 high Not Available [facility] (Lab) [address] [place], [address], 10/12/2023 14:43:31 10/12/19 24 10/12/2023 HEMOG LOBIN A1C HA1C 6.0 % 4.0-6. 0 Diabe he Scree domingo Crite ilsa: <5.7% Consi stent with absen ce of diabe he 5.7-6 .4% Consi stent with incre ased risk for diabe he (pred iabet es) >OR=6 .5% Consi stent with diabe he REFER ENCE: Diabe he Care 2016, 39(Jackson ppl.1 ):s13 -s22 Not Available [facility] (Lab) [address] [place], [address], 10/12/2023 17:00:04 10/12/19 24 10/12/2023 LIPID PANEL cholesterol 167 mg/dL 140-19 9 NIH KATIE NSUS RECOM MENDA TION FOR MARCK STERO L: ADULT CHILD LOW RISK: <200 <170 BORDE RLINE : <200- 239 ----- HIGH RISK: >240 >200 Not Available [facility] (Lab) [address] [place], [address], 10/12/2023 18:06:07 10/12/19 24 10/12/2023 LIPID PANEL triglyceride s 209 mg/dL 0-150 high NIH KATIE NSUS REPOR T RECOM MENDA TION FOR TRIGL YCERI DUNIA: ADULT CHILD LOW RISK: <150 ----- BODER LINE: 150-1 99 ----- HIGH RISK: >200 ----- Not Available [facility] (Lab) [address] [place], [address], 10/12/2023 18:06:07 10/12/19 24 10/12/2023 LIPID PANEL HDL cholesterol 44 mg/dL 40- Not Available [facility] (Lab) [address] [place], [address], 10/12/2023 18:06:07 10/12/19 24 10/12/2023 LIPID PANEL [...] WILL NOT BE REPOR GIANCARLO. Not Available [facility] (Lab) [address] [place], [address], 10/12/2023 18:06:07 10/12/19 24 10/12/2023 COMPR EHENS DEEDEE METAB OLIC PANEL sodium 139 mmol/ L 137-14 5 Not Available [facility] (Lab) [address] [place], [address], 10/12/2023 18:06:13 10/12/19 24 10/12/2023 COMPR EHENS DEEDEE METAB OLIC PANEL potassium 4.1 mmol/ L 3.5-5. 1 Not Available [facility] (Lab) [address] [place], [address], 10/12/2023 18:06:13 10/12/19 24 10/12/2023 COMPR EHENS DEEDEE METAB OLIC PANEL chloride 111 mmol/ L 98-107 high Not Available [facility] (Lab) [address] [place], [address], 10/12/2023 18:06:13 10/12/19 24 10/12/2023 COMPR EHENS DEEDEE METAB OLIC PANEL carbon dioxide 26 mmol/ L 22-30 Not Available [facility] (Lab) [address] [place], [address], 10/12/2023 18:06:13 10/12/19 24 10/12/2023 COMPR EHENS DEEDEE METAB OLIC PANEL anion gap 6.1 mmol/ L 14-22 low Not Available [facility] (Lab) [address] [place], [address], 10/12/2023 18:06:13 10/12/19 24 10/12/2023 COMPR EHENS DEEDEE METAB OLIC PANEL glucose 125 mg/dL 70-99 high Not Available [facility] (Lab) [address] [place], [address], 10/12/2023 18:06:13 10/12/19 24 10/12/2023 COMPR EHENS DEEDEE METAB OLIC PANEL BUN 8 mg/dL 8-19 Not Available [facility] (Lab) [address] [place], [address], 10/12/2023 18:06:13 10/12/19 24 10/12/2023 COMPR EHENS DEEDEE METAB OLIC PANEL creatinine 0.91 mg/dL 0.66-1 .25 Not Available [facility] (Lab) [address] [place], [address], 10/12/2023 18:06:13 10/12/19 24 10/12/2023 COMPR EHENS DEEDEE METAB OLIC PANEL GFR >60 Refer ence Range : [place] ge GFR Healt hy Adult : >60 [...] or ethni c subgr oups, such as Hispa nics. Outsi de the valid ated moe [...] the F websi te: https ://елена beatty.o rg/pr ofess ional s/kdo qi/gf r_cal culat or Not Available [facility] (Lab) [address] [place], [address], 10/12/2023 18:06:13 10/12/19 24 10/12/2023 COMPR EHENS DEEDEE METAB OLIC PANEL alkaline phosphatase 75 U/L 38-126 Not Available [facility] (Lab) [address] [place], [address], 10/12/2023 18:06:13 10/12/19 24 10/12/2023 COMPR EHENS DEEDEE METAB OLIC PANEL alanine aminotransfe rase 37 U/L 0-35 high Not Available [facility] (Lab) [address] [place], [address], 10/12/2023 18:06:13 10/12/19 24 10/12/2023 COMPR EHENS DEEDEE METAB OLIC PANEL aspartate aminotransfe rase 32 U/L 15-37 Not Available [facility] (Lab) [address] [place], [address], 10/12/2023 18:06:13 10/12/19 24 10/12/2023 COMPR EHENS DEEDEE METAB OLIC PANEL bilirubin, total 0.40 mg/dL 0.20-1 .30 Not Available [facility] (Lab) [address] [place], [address], 10/12/2023 18:06:13 10/12/19 24 10/12/2023 COMPR EHENS DEEDEE METAB OLIC PANEL calcium 9.0 mg/dL 8.4-10 .2 Not Available [facility] (Lab) [address] [place], [address], 10/12/2023 18:06:13 10/12/19 24 10/12/2023 COMPR EHENS DEEDEE METAB OLIC PANEL total protein 6.9 g/dL 6.3-8. 2 Not Available [facility] (Lab) [address] [place], [address], 10/12/2023 18:06:13 10/12/19 24 10/12/2023 COMPR EHENS DEEDEE METAB OLIC PANEL albumin 3.8 g/dL 3.4-5. 0 Not Available [facility] (Lab) [address] [place], [address], 10/12/2023 18:06:13 10/12/19 24 10/12/2023 COMPR EHENS DEEDEE METAB OLIC PANEL globulin 3.1 g/dL 2.6-4. 2 Not Available [facility] (Lab) [address] [place], [address], 10/12/2023 18:06:13 10/12/19 24 10/12/2023 COMPR EHENS DEEDEE METAB OLIC PANEL A/G ratio 1.2 ratio 1.0-2. 0 Not Available [facility] (Lab) [address] [place], [address], 10/12/2023 18:06:13 10/12/19 24 10/12/2023 VITAM IN D 25-HY DROXY [id number] 21.8 NG/mL 30-100 low Vitam in D Statu s: Defic ient: <20 ng/mL Insuf ficie nt: 20-29 ng/mL Suffi cient : 30-10 0 ng/mL Not Available [facility] (Lab) [address] [place], [address], 10/12/2023 18:36:16 10/12/19 24 10/12/2023 T4 FREE free T4 1.15 NG/dL 0.78-2 .19 Not Available [facility] (Lab) [address] [place], [address], 10/12/2023 18:37:24 10/12/19 24 10/12/2023 TSH thyroid-stim ulating hormone 1.280 uIU/m L 0.465- 4.680 Not Available [facility] (Lab) [address] [place], [address], 10/12/2023 18:39:30 10/12/19 24 10/12/2023 VITAM IN B12 (POPEYE CHESTER ) vb12 428 pg/mL 239-93 1 Not Available [facility] (Lab) [address], [place], [address], 10/12/2023 19:12:42 10/12/19 24 10/12/2023 FOLAT E, SERUM /PLAS MA folate 8.60 NG/mL 2.76-2 0.0 Not Available [facility] (Lab) [address], [place], [address], 10/12/2023 19:12:47 10/25/19 25 10/08/2024 home sleep study No observ ation record ed. [email or web address] [facility] ([facility]) [address] [place] [address], [address], 10/30/2024 09:39:46 11/09/19 25 10/08/2024 home sleep study No observ ation record ed. [facility] ([facility]) [address] [place] [address], [id number], 11/09/2024 16:58:19 Result Notes None recorded. Problems Name Problem SNOMED Code Status Onset Date Resolution Date Notes Provider Name and Address Organization Details Recorded Time Prediabetes 992578490 Active 2022 Elvia fox MD [address], [address], [place], [address], [employer] [facility] 15:36:20 Environment al allergy 375014662 Active 2022 Elvia fox MD [address], [address], [place], [address], [facility] 3 15:37:10 Low back pain 858601894 Active 2022 Elvia fox MD [address], [address], [place], [address], [facility] 3 15:37:26 Vitamin D deficiency 59957415 Active 2022 Elvia fox MD [address], [address], [place], [address], [facility] [place] [facility] 3 15:38:11 Serum vitamin B12 below reference range 888451955 Active 2022 Elvia fox MD [address], [address], [place], [address], [facility] [place] [facility] 3 15:38:16 Moderate recurrent major depression 53957979 Active 2022 Elvia fox MD [address], [address], [place], [address], [facility] [employer] [facility] 3 15:38:33 Hyperlipide keiry 48119543 Active 2022 Vivi weston, [facility] [employer] [facility] 3 15:15:19 Anemia 293929711 Active 2022 Vivi weston, [facility] 3 15:15:57 Lipoma of skin 777927641 Active 2022 Elvia fox MD [address], [address], [place], [address], [facility] [employer] [facility] 3 16:04:26 Allergic rhinitis 30772573 Active 2022 Vivi weston, [facility] 3 14:46:25 Mass of soft tissue 136589614 Active 2022 Tony graham MD [address], [address], [place], [address], [facility] 3 15:09:47 Mass of soft tissue 305433946 Active 2022 Tony graham MD [address], [address], [place], [address], [facility] [employer] [facility] 3 15:10:14 Liver function tests outside reference range 917232967 Active 2022 Vivi Cheng null, [place] [facility] [place] [facility] 3 10:29:12 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 2023 Elvia fox MD [address], [place], [address], [facility] [place] [facility] 4 14:57:12 Obesity 344481736 Active 2023 Elvia fox MD [address], [address], [place], [address], [facility] [place] [facility] 4 15:19:19 Neck swelling 949085768 Active 2023 Elvia fox MD [address], [address], [place], [address], [facility] [place] [facility] 4 17:17:53 Proteinuria 76179755 Active 2023 Elvia fox MD [address], [address], [place], [address], [place] [facility] [employer] [facility] 4 16:34:43 Asthma 286100060 Active 2023 Elvia fox MD [address], [address], [place], [address], [facility] [place] [facility] 4 16:48:19 Hypertrigly ceridemia 240114407 Active 2023 Nafisa Fragoso MA null, [place] [facility] [place] [facility] 4 10:27:01 Liver enzymes level above reference range 669645854 Active 2023 Nafisa Fragoso MA null, [place] [facility] [place] [facility] 4 10:27:26 Folliculiti s 16313408 Active 2023 Elvia fox MD [address], [address], [place], [address], [facility] [place] [facility] 4 17:01:22 Microcytosi s 109821742 Active 2024 Brittni Benoit MA null, [facility] 5 17:01:38 Spasm of muscle of lower back 5940577758180 9105 Active 2024 ANA Andrade null, [facility] 5 16:18:40 Sleep apnea 04560343 Active 2024 Elvia fox MD [address] [facility], [facility] [address], [place], [address], [facility] 5 17:23:47 Problem Notes None recorded. Procedures Surgical History Date Name Laterality Status Provider Name and Address Organization Details Recorded Time 4 endoscopic myomectomy completed ANA Andrade [facility] 02/14/2024 16:24:41 3 Excisions - Specify completed ANA Andrade [facility] 03/22/2023 14:39:53 completed Luna Lizarraga Casper [facility] 09/30/2022 15:26:06 Imaging Results None recorded. Procedure [...] completed Not Available Not Available Not Available fluconazole 150 mg tablet 09/30 completed [...] completed Not Available Not Available Not Available Zyrtec 10 mg tablet Take 1 tablet(s) every day by oral route as needed. 2024 active Not Available Not Available Not Avai lable phentermine 37.5 mg tablet TAKE 1 TABLET [...] propionate 50 mcg/actuati on nasal spray,suspe nsion [place] 1 spray every day by intranasa l [...] Not Available Not Available Not Avai lable nitrofurant oin monohydrate /macrocryst als 100 mg capsule TAKE 1 CAPSULE BY MOUTH TWICE DAILY 12/01 completed Not Available Not Available Not Available cholecalcif veronica (vitamin D3) 1,250 mcg (50,000 [...] and Address Organization Details Last Updated DateTime 172.72 cm 47.6 kg/m2 884866. 41 g 97.5 [degF] 90 /min 120/74 mm[Hg] Luna [place], RMA [facility] 5 15:05:40 Date Recorded Body height Body mass index (BMI) Body weight Body temperature Heart rate Oxygen saturation Oxygen saturation in Arterial blood by Pulse oximetry Pain severity - 0-10 verbal numeric rating [Score] - Reported Systolic And Diastolic Provider Name and Address Organization Details Last Updated DateTime 5 172.72 cm 48.8 kg/m2 241974. 15 g 97.6 [degF] 69 /min 97 % 97 % 0 118/74 mm[Hg] Latoya Khoury MA [facility] [facility] 5 16:45:19 Date Recorded Body height Body mass index (BMI) Body weight Body temperature Heart rate Oxygen saturation Oxygen saturation in Arterial blood by Pulse oximetry Systolic And Diastolic Provider Name and Address Organization Details Last Updated DateTime 5 172.72 cm 48.5 kg/m2 319269. 97 g 98.5 [degF] 84 /min 97 % 97 % 116/74 mm[Hg] Brittni Benoit MA [facility] 5 14:17:48 Date Recorded Body height Body mass index (BMI) Body weight Body temperature Heart rate Oxygen saturation Oxygen saturation in Arterial blood by Pulse oximetry Systolic And Diastolic Provider Name and Address Organization Details Last Updated DateTime 4 172.72 cm 51.5 kg/m2 681768. 81 g 97.8 [degF] 104 /min 93 % 93 % 126/82 mm[Hg] Latoya Khoury MA [facility] 4 16:29:30 Date Recorded Body height Body mass index (BMI) Body weight Body temperature Heart rate Systolic And Diastolic Provider Name and Address Organization Details Last Updated DateTime 4 172.72 cm 49.1 kg/m2 171250. 34 g 98 [degF] 90 /min 122/64 mm[Hg] ANA Andrade [place] [employer] [facility] 4 16:26:52 Social History Question Answer Notes LastModified by Organizat ion Details LastModified Time Tobacco Smoking Status Never Smoker ANA Andrade null [facility] 09/30/2022 15:23:27 Do You Have An Advance [...] Or The Highest Degree You Have Received? [id number] Information not available 09/30/2022 Do You Have [...] not available 08/28/2024 Where Do You Live? [facility] Information not available 09/30/2022 Do You Have A Medical Power Of Press Operator Meat? 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 None Information not available 09/30/2022 Mental Status Question Answer Note LastModified by Organization D etails LastModified Time Do you feel stressed (tense, restless, nervous, or anxious, or unable to sleep at night)? [id number] Information not available 09/30/2022 Family History Relationship [...] DISEASE/DISORDER N HISTORY OF DRUG ABUSE N COPD N RADIATION / CHEMOTHERAPY N Other # 2 N BLOOD DISEASES N EAR OR HEARING PROBLEMS N MUMPS N SHINGLES N DEPRESSION (INCLUDING POST ) N BOWEL PROBLEMS N FAILED BACK SYNDROME N STROKE/TIA N [...] N CHRONIC PAIN SYNDROME N HYPOTHYROIDISM N CAROTID BLOCKAGE N CONSTIPATION N BACK / NECK PROBLEMS N ATHEROSCLEROSIS [...] Time Tdap 09/30/2022 completed Elvia Corrales MD [address], [address], [place], [address], [facility] [facility] 09/30/2022 18:04:59 Past Encounters Encounter ID Performer Location Encounter Start Date Encounter Closed Date Diagnosis/Indication Diagnosis SNOMED-CT Code Diagnosis ICD10 Code Diagnosis IMO Codes Diagnosis Note [id number] Elvia chi MD [facility] [address] [place] [address] 09/30/2022 14:57:44 09/30/2022 16:27:08 Screening - NAD 581030502 Z13.9 Get yearly flu shot, get tdap if not doneGet COVID 19 vaccine and its boosters PAP: Get this done RTC in 3 months, do labs, ER if worse, she and her mother did verbalize her understand ing of the above Prediabetes 454947530 R7 3.03 History ofNot on any meds, get labs Environmental allergy 42 3953786 T78.49XA On cetrizine Low back pain 068570567 M54.50 Get xrays, may need to see PTGet on flexerill and mobicIf MRI is needed it will have to be open MRI Long-term drug therapy 874331473 Z79.899 Vitamin D deficiency 347 [address] E55.9 Serum samuel min B12 below reference range 518277355 R79.89 Moderate r ecurrent major depression 03243103 F33.1 Declines any meds at this time, states that she was anxious and depressed d/t loss of her brother in law in a [place] but is doing much better nowNot suicidal or homicidal Gynecologi c examination 55061911 Z01.419 Administra tion of diphtheria, pertussis, and tetanus vaccine 253370099 Z23 [id number] Elvia chi MD [facility] [id number] , [facility] [place] [address] 01/12/2023 14:35:52 01/12/2023 15:23:28 Screening - NAD 197471461 Z13.9 Get yearly flu shot, get tdap if not doneGet COVID 19 vaccine and its boosters PAP: Get this done RTC in 3 months, do labs, ER if worse, she and her mother did verbalize her understand ing of the above Prediabetes 980516811 R7 3.03 On metformin 500mg po bidGet labs Environmental allergy 42 9181762 T78.49XA On cetrizine Low back pain 449247126 M54.50 Get xrays, may need to see PT, this was ordered last OV but she did not yet do soGet on flexerill and mobicIf MRI is needed it will have to be open MRI Vitamin D deficiency 347 59945 E55.9 Given vit dRepeat the labs Serum samuel min B12 below reference range 754398542 R79.89 Moderate r ecurrent major depression 84979767 F33.1 OV 09/30/2022 Declines any meds at this time, states that she was anxious and depressed d/t loss of her brother in law in a [place] but is doing much better nowNot suicidal or homicidal Gynecologi c examination 94145907 Z01.419 Hyperlipidemia 28665275 E78.5 MildGet labs Anemia 586291410 D64.9 Likely from heavy menses, microcytic , needs to be on iron and also see her OB TIRSO Lipoma of skin 010403847 D17.30 Noted on the L lateral abd wall, will refer to Dr Bush [id number] Tony salgado MD [facility] General Surgery [address] [address] 02/01/2023 10:54:22 03/16/2023 15:34:22 Mass of soft tissue 627976422 R22.9 Left flank [id number] Tony salgado MD [facility] General Surgery [address] [address] 03/01/2023 12:59:01 03/01/2023 16:04:56 [id number] Elvia chi MD [facility] Internal Med 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 [facility] [place] [address] 04/18/2023 14:39:29 04/18/2023 15:22:44 Screening - NAD 162628703 Z13.9 Get yearly flu shot, get tdap if not doneGet COVID 19 vaccine and its boosters PAP: Get this done RTC in 3 months, do labs, ER if worse, she and her mother did verbalize her understand ing of the above Prediabetes 274783194 R7 3.03 On metformin 500mg po bidGet labs Environmental allergy 42 5883190 T78.49XA On cetrizine Low back pain 565924386 M54.50 Get xrays, may need to see PT, this was ordered last OV but she did not yet do soOn geralderimarilyn and katlin Does well now 04/18/2023 If MRI is needed it will have to be open MRI Vitamin D deficiency 347 80984 E55.9 Given vit dRepeat the labs Serum samuel min B12 below reference range 207233172 R79.89 Moderate r ecurrent major depression 54015170 F33.1 OV 09/30/2022 Declines any meds at this time, states that she was anxious and depressed d/t loss of her brother in law in a [place] but is doing much better nowNot suicidal or homicidal On bupropion XL 150mgOn lexapro 5g dailySees Vinita Welch EMB[employer] SOFTWARE ARCHITECT for Dr De La Cruz Gynecologi c examination 74691466 Z01.419 Hyperlipidemia 15061789 E78.5 MildGet labs Anemia 019572148 D64.9 Likely from heavy menses, microcytic , needs to be on iron and also see her OB TIRSO Lipoma of skin 658044703 D17.30 Noted on the L lateral abd wall, will refer to Dr Bush Steatotic liver disease 138872752 K76.0 US liver 03/17/[address] Bagley [facility] hepatology Obesity 778196092 E66.9 Very eager to start on a GLP-1 for weight loss, denies any MCT or MEN 2 syndrome, or pancreatic or parathyroi d symptomsGe t on zepbound will come in a week for teaching [id number] Elvia chi MD [facility] Med [place] [address] [place] [address] y , [place] [address] 05/11/2023 14:26:26 05/11/2023 15:04:22 Screening - NAD 828128950 Z13.9 Get yearly flu shot, get tdap if not doneGet COVID 19 vaccine and its boosters PAP: Get this done RTC in 3 months, do labs, ER if worse, she and her mother did verbalize her understand ing of the above Obesity 975857304 E66.9 Very eager to start on a GLP-1 for weight loss, denies any MCT or MEN 2 syndrome, or pancreatic or parathyroi d symptomsGe t on zepbound will come in a week for teaching OV 05/11/2023 :Eager to start on phentermin e as her insurance has not approved any GLP-1All [facility] [id number] Elvia chi MD [facility] Internal Med [facility] [address], [facility] 15 [place] [address] 07/05/2023 16:17:25 07/05/2023 17:19:00 Obesity 169609776 E66.9 Very eager to start on a GLP-1 for weight loss, denies any MCT or MEN 2 syndrome, or pancreatic or parathyroi d symptomsGe t on zepbound will come in a week for teaching OV 05/11/2023 :Eager to start on phentermin e as her insurance has not approved any GLP-1All side effects explained to [facility] in one month OV 07/05/2023 :Phentermi ne renewed, she did very well with it and did lose weight, RTC in one month Neck swelling 779832746 R22.1 Get US neck, concern for thyroid swelling, will also get TSH/FT4 done, may need to see ENT ASAPAdvise d if the swelling increases or if she has any pain, fevers, dysphagia etc, she will have to go to the ER [id number] Elvia chi MD [facility] Internal Med [facility] [address] , [facility] 15 [place] [address] 08/09/2023 15:57:54 08/09/2023 16:57:22 Obesity 938743149 E66.9 Very eager to start on a GLP-1 for weight loss, denies any MCT or MEN 2 syndrome, or pancreatic or parathyroi d symptomsGe t on zepbound will come in a week for teaching OV 05/11/2023 :Eager to start on phentermin e as her insurance has not approved any GLP-1All side effects explained to [facility] in one month OV 07/05/2023 :Phentermi ne renewed, she did very well with it and did lose weight, RTC in one month OV 08/09/2023 : Renewed phentermin e 339<-343lb s [id number] Elvia chi MD [facility] [address] [facility] , [place] [address] 10/12/2023 16:12:13 10/12/2023 16:50:53 Obesity 668946781 E66.9 Very eager to start on a [...] phentermin e 339<-343lb s Screening - NAD 00432560 3 Z13.9 Get yearly flu shot, get tdap if not doneGet COVID 19 vaccine and its boosters PAP: Sees her OB and is to get on the OC but it is 'stuck in prior auth' RTC in 3 months, do labs, ER if worse, she and her mother did verbalize her understand ing of the above Prediabetes 868906057 R7 3.03 On metformin 500mg po bidGet labs Environmental allergy 42 2720762 T78.49XA On cetrizine Low back pain 430783360 M54.50 Get xrays, may need to see PT, this was ordered last OV but she did not yet do soOn flexerill and mobic, take ONLY as needed Does well now 04/18/2023 If MRI is needed it will have to be open MRI Vitamin D deficiency 347 40336 E55.9 Given vit dRepeat the labs Serum samuel min B12 below reference range 545082738 R79.89 Moderate r ecurrent major depression 32218616 F33.1 OV 09/30/2022 Declines any meds at this time, states that she was anxious and depressed d/t loss of her brother in law in a [place] but is doing much better nowNot suicidal or homicidal On bupropion XL 150mgOn lexapro 5g dailySees Vinita Welch EMBED[employer]ED SOFTWARE ARCHITECT for Dr De La Cruz Gynecologi c examination 43046534 Z01.419 Hyperlipidemia 69289315 E78.5 MildGet labs Anemia 658622168 D64.9 Likely from heavy menses, microcytic , needs to be on iron and also see her OB TIRSO Lipoma of skin 266560687 D17.30 Dr Bush 03/01/2023 , f/u PRN Steatotic liver disease 097661996 K76.0 US liver 03/17/[address] Yudi WYLIE hepatology Proteinuria 83905444 R80 .9 Get a referral to nephrology Asthma 210320677 J45.90 9 Has used a HHN in the pastUses albuterol as needed [id number] Elvia chi MD [facility] Internal Med [facility] [address] [facility], [facility] [address] [place] [address] 02/14/2024 16:13:17 02/14/2024 17:02:57 Obesity 071563087 E66.9 Very eager to start on a [...] phentermin e 339<-343lb s Screening - NAD 04203576 3 Z13.9 Get yearly flu shot, get tdap if not doneGet COVID 19 vaccine and its boosters PAP: Sees her OB and is to get on the OC but it is 'stuck in prior auth' RTC in 3 months, do labs, ER if worse, she and her mother did verbalize her understand ing of the above Prediabetes 430380362 R7 3.03 On metformin 500mg po bidGet labs Environmental allergy 42 7693493 T78.49XA On cetrizine Low back pain 613611719 M54.50 Get xrays, may need to see PT, this was ordered last OV but she did not yet do soOn flexerill and mobic, take ONLY as needed Does well now 04/18/2023 If MRI is needed it will have to be open MRI OV 02/14/2024 :Get MRI, has declinedIs on flexeril, renewedMay need to see pain management has declined Vitamin D deficiency 347 51954 E55.9 Given vit dRepeat the labs Serum samuel min B12 below reference range 826457658 R79.89 Moderate r ecurrent major depression 90886806 F33.1 OV 09/30/2022 Declines any meds at this time, states that she was anxious and depressed d/t loss of her brother in law in a [facility] but is doing much better nowNot suicidal or homicidal On bupropion XL 150mgOn lexapro 5g dailyOn hydroxyzin e 10mg bidSees Vinita Welch EMBEDDED SOFTWARE ARCHITECT for Dr De La Cruz Gynecologi c examination 86167331 Z01.419 Hyperlipidemia 26672811 E78.5 MildGet labs Anemia 420546818 D64.9 Likely from heavy menses, microcytic , needs to be on iron and also see her OB ASAPDr Sandra's EMB[employer]ED SOFTWARE ARCHITECT 11/01/2023 Lipoma of skin 420652436 D17.30 Dr Bush 03/01/2023 , f/u PRN Steatotic liver disease 929678210 K76.0 US liver 03/17/2023 See GI hepatology Proteinuria 85345264 R80 .9 Get a referral to nephrology Asthma 667955103 J45.90 9 Has used a HHN in the pastUses albuterol as needed Allergic rhinitis 712217 04 J30.9 Renewed the [facility] PRN 02/14/2024 Folliculitis 14967442 L7 3.9 Has noted a swelling in the L axilla, will get on keflex, if not better notify may need to see G surgery [id number] Elvia chi MD [facility] Internal Med [facility] [address] [facility], [address] [place] [address] 05/22/2024 14:34:36 05/22/2024 15:48:46 Obesity 015993055 E66.9 Very eager to start on a [...] can be given Wegovy Screening - NAD 05274449 3 Z13.9 Get yearly flu shot, get tdap if not doneGet COVID 19 vaccine and its boosters PAP: Sees her OB and is to get on the OC but it is 'stuck in prior auth' RTC in 3 months, do labs, ER if worse, she and her mother did verbalize her understand ing of the above Prediabetes 120618788 R7 3.03 On metformin 500mg po bidGet labs Environmental allergy 42 7484674 T78.49XA On cetrizine Low back pain 966509355 M54.50 Get MRI, has declinedIs on flexerilMa y need to see pain management has declined Vitamin D deficiency 347 95313 E55.9 Given vit dRepeat the labs Serum samuel min B12 below reference range 534939021 R79.89 Moderate r ecurrent major depression 48287967 F33.1 OV 09/30/2022 Declines any meds at this time, states that she was anxious and depressed d/t loss of her brother in law in a [place] but is doing much better nowNot suicidal or homicidal On bupropion XL 150mgOn lexapro 5g dailyOn hydroxyzin e 10mg bidSees Vinita Welch EMBEDDED SOFTWARE ARCHITECT for Dr De La Cruz Gynecologi c examination 87893430 Z01.419 Hyperlipidemia 78135582 E78.5 MildGet labs Anemia 918698753 D64.9 Likely from heavy menses, microcytic , needs to be on iron and also see her OB ASAPDr Sandra's EMB[employer]ED SOFTWARE ARCHITECT 11/01/2023 Lipoma of skin 401821250 D17.30 Dr Bush 03/01/2023 , f/u PRN Steatotic liver disease 016204353 K76.0 US liver 03/17/2023 See GI hepatology Proteinuria 97239572 R80 .9 Get a referral to nephrology Asthma 779896461 J45.90 9 Has used a HHN in the pastUses albuterol as needed Allergic rhinitis 833328 04 J30.9 Renewed the [facility] PRN 02/14/2024 [id number] Elvia chi MD [facility] Internal Med [address] , [address] [place] [address] 08/28/2024 16:32:39 08/28/2024 17:30:26 Obesity 722179342 E66.9 Very eager to start on a [...] :Cannot afford the GLP-1 Screening - NAD 19711078 3 Z13.9 Get yearly flu shot, get tdap if not doneGet COVID 19 vaccine and its boosters PAP: Sees her OB and is to get on the OC but it is 'stuck in prior auth' RTC in 3 months, do labs, ER if worse, she and her mother did verbalize her understand ing of the above Prediabetes 217083019 R7 3.03 On metformin 500mg po bidGet labs Environmental allergy 42 7194653 T78.49XA On cetrizine Low back pain 322269821 M54.50 Get MRI, has declinedIs on flexerilMa y need to see pain management has declined Vitamin D deficiency 347 31180 E55.9 Given vit dRepeat the labs Serum samuel min B12 below reference range 908267008 R79.89 Moderate r ecurrent major depression 16761329 F33.1 OV 09/30/2022 Declines any meds at this time, states that she was anxious and depressed d/t loss of her brother in law in a [place] but is doing much better nowNot suicidal or homicidal Not on bupropion XL 150mgOn lexapro 5g dailyOn hydroxyzin e 10mg bidSees Vinita Welch EMBEDDED SOFTWARE ARCHITECT for Dr De La Cruz Gynecologi c examination 74369016 Z01.419 Hyperlipidemia 98996737 E78.5 On rosuvastat in 40mg dailyDiet and exerciseGe t labs Anemia 078096744 D64.9 Likely from heavy menses, microcytic , needs to be on iron and also see her OB ASAPDr Sandra's EMB[employer]ED SOFTWARE ARCHITECT 11/01/2023 Lipoma of skin 802670271 D17.30 Dr Bush 03/01/2023 , f/u PRN Steatotic liver disease 980285333 K76.0 US liver 03/17/2023 See GI hepatology Proteinuria 12351207 R80 .9 Get a referral to nephrology Asthma 486294607 J45.90 9 Has used a HHN in the pastUses albuterol as needed Allergic rhinitis [id number] J30.9 Renewed the zte PRN 02/14/2024 Sleep apnea [id number] G47 .30 [id number] Has EDS and fatigue [id number] Elen Cuba NP [facility] [place] [address] 09/03/2024 13:59:43 09/04/2024 11:36:00 Sleep apnea [id number] G47.30 G47.33 G47.10 [id number] Home sleep study order todayESS-1 3Discussed sleep [...] Member ID Haq Member ID Guarantor Name 12/01/2024 1 [facility] Bree Delgado [id number] Bree Danny 12/01/2024 2 [place] [facility] Bree Delgado [id number] Bree Delgado Notes Date Note Type Note Provider Name and Address Organization Details Recorded Time 10/12/2023 text/html OV 09/30/2022:Here to establish care Past Hx:None Reviewed social family and surgical history Here to discuss her LBP, no trauma, no N/T or weakness or loss of bowel or bladder control, states that in the past she was told to get a MRI but could not do the MRI d/t anxiety OV 01/12/2023: Here for her f/u apt, she continues to have fatigue and heavy menses, she did not keep her apt with the OB and is requesting another apt referralAlso has samuel N/T in the legs and hands OV 03/22/2023: Here to discuss her depression, states that she is worried about her health and also she is worried about her niece as she has got seizures now, she is not suicidal or homicidal, she also would like to know the report for her US liver OV 04/18/2023: Here to discuss her labs, she is doing well now, she did see psychiatry, she also has been referred to [place] per [place] history for fibroidsShe also would like to get on GLP-1 meds for weight loss, states that she has done her labs OV 05/11/2023: Here to start on phentermine, does well OV 07/05/2023: Here for her phentermine refill, she has done well with the phentermine, but has noted some R neck swelling, this is since about 4 days, mildly tender, no dysphagia, no palpitations, no fevers or chills, no tremors OV 08/09/2023: Here for her phentermine refill, does well OV 10/12/2023: Here for her f/u apt, she is doing well today, she did do the labs, she still feels tired Elvia Corrales MD [address] [facility], [address], [place], [address], [place] [facility] 10/12/2023 17:04:00 02/14/2024 text/html OV 09/30/2022:Here to establish care Past Hx:None Reviewed social family and surgical history Here to discuss her LBP, no trauma, no N/T or weakness or loss of bowel or bladder control, states that in the past she was told to get a MRI but could not do the MRI d/t anxiety OV 01/12/2023: Here for her f/u apt, she continues to have fatigue and heavy menses, she did not keep her apt with the OB and is requesting another apt referralAlso has samuel N/T in the legs and hands OV 03/22/2023: Here to discuss her depression, states that she is worried about her health and also she is worried about her niece as she has got seizures now, she is not suicidal or homicidal, she also would like to know the report for her US liver OV 04/18/2023: Here to discuss her labs, she is doing well now, she did see psychiatry, she also has been referred to an OB in [place] as per her history for fibroidsShe also would like to get on GLP-1 meds for weight loss, states that she has done her labs OV 05/11/2023: Here to start on phentermine, does well OV 07/05/2023: Here for her phentermine refill, she has done well with the phentermine, but has noted some R neck swelling, this is since about 4 days, mildly tender, no dysphagia, no palpitations, no fevers or chills, no tremors OV 08/09/2023: Here for her phentermine refill, does well OV 10/12/2023: Here for her f/u apt, she is doing well today, she did do the labs, she still feels tired OV 02/14/2024: Here for her f/u apt. she has noted some LBP, no acute or remote trauma, no N/T or weakness, no loss or bowel or bladder control, she does not want any work up but wants a refill on the flexerillAlso has noted a boil in the L axilla, very tender, no d/c, no fevers or chills Elvia Corrales MD [address], [address], [place], [address], [place] [facility] 02/14/2024 17:08:06 05/22/2024 text/html OV 09/30/2022:Here to establish care Past Hx:None Reviewed social family and surgical history Here to discuss her LBP, no trauma, no N/T or weakness or loss of bowel or bladder control, states that in the past she was told to get a MRI but could not do the MRI d/t anxiety OV 01/12/2023: Here for her f/u apt, she continues to have fatigue and heavy menses, she did not keep her apt with the OB and is requesting another apt referralAlso has samuel N/T in the legs and hands OV 03/22/2023: Here to discuss her depression, states that she is worried about her health and also she is worried about her niece as she has got seizures now, she is not suicidal or homicidal, she also would like to know the report for her US liver OV 04/18/2023: Here to discuss her labs, she is doing well now, she did see psychiatry, she also has been referred to an OB [place] per her history for fibroidsShe also would like to get on GLP-1 meds for weight loss, states that she has done her labs OV 05/11/2023: Here to start on phentermine, does well OV 07/05/2023: Here for her phentermine refill, she has done well with the phentermine, but has noted some R neck swelling, this is since about 4 days, mildly tender, no dysphagia, no palpitations, no fevers or chills, no tremors OV 08/09/2023: Here for her phentermine refill, does well OV 10/12/2023: Here for her f/u apt, she is doing well today, she did do the labs, she still feels tired OV 02/14/2024: Here for her f/u apt. she has noted some LBP, no acute or remote trauma, no N/T or weakness, no loss or bowel or bladder control, she does not want any work up but wants a refill on the flexerillAlso has noted a boil in the L axilla, very tender, no d/c, no fevers or chills OV 05/22/2024: Here for her f/u apt, she feels well today, no new labs Elvia Corrales MD [address] [facility], [address], [place], [address], [place] [facility] 05/22/2024 16:00:56 08/28/2024 text/html OV 09/30/2022:Here to establish care Past Hx:None Reviewed social family and surgical history Here to discuss her LBP, no trauma, no N/T or weakness or loss of bowel or bladder control, states that in the past she was told to get a MRI but could not do the MRI d/t anxiety OV 01/12/2023: Here for her f/u apt, she continues to have fatigue and heavy menses, she did not keep her apt with the OB and is requesting another apt referralAlso has samuel N/T in the legs and hands OV 03/22/2023: Here to discuss her depression, states that she is worried about her health and also she is worried about her niece as she has got seizures now, she is not suicidal or homicidal, she also would like to know the report for her US liver OV 04/18/2023: Here to discuss her labs, she is doing well now, she did see psychiatry, she also has been referred to an OB in [place] as per her history for fibroidsShe also would like to get on GLP-1 meds for weight loss, states that she has done her labs OV 05/11/2023: Here to start on phentermine, does well OV 07/05/2023: Here for her phentermine refill, she has done well with the phentermine, but has noted some R neck swelling, this is since about 4 days, mildly tender, no dysphagia, no palpitations, no fevers or chills, no tremors OV 08/09/2023: Here for her phentermine refill, does well OV 10/12/2023: Here for her f/u apt, she is doing well today, she did do the labs, she still feels tired OV 02/14/2024: Here for her f/u apt. she has noted some LBP, no acute or remote trauma, no N/T or weakness, no loss or bowel or bladder control, she does not want any work up but wants a refill on the flexerillAlso has noted a boil in the L axilla, very tender, no d/c, no fevers or chills OV 05/22/2024: Here for her f/u apt, she feels well today, no new labs OV 08/28/2024: Here for her f/u apt, she is doing well today Elvia Corrales MD [address], [place], [address], [facility] 09/14/2024 14:28:00 09/03/2024 text/html Obstructive Slee p ApneaReported by PatientHPIFor associated symptoms, patient reportsmorning dry mouth,morning headache,postnasal drip,awakening short of breath,night sweats,daytime sleepiness,suddenly falling asleep during the day,excess napping,impaired work performance,nasal congestion,loud snoring,mouth breathing,hyperactivity ,poor concentration,amnesia, andirritabilitybut reportsno dysphagia,no gasping for air,no witnessed apnea, andno hyponasal speech. For severity, patient reportsworsening. For timing, patient reportsdaily. For duration, patient reportsfrequent. For context, patient reportsfamily history of sleep disorder,observed apnea, andsleep hours per night8. For aggravating factors, patient reportsnone. For alleviating factors, patient reportsnone.consistent sleep schedulenon smoker Elen Cuba NP [address], [place], [address], [facility] 09/03/2024 14:42:16 OBGyn Episode No OBEpisode recorded.
--- OUTSIDE RECORDS SUMMARY | 2024-12-07 14:27 | XMS_ITS | Clinical Summary ---
Author Organization [facility] Address [address] [place] [address] Care Team Providers Care Shop Tailor Name Role Phone Elvia Corrales MD Primary [...] Encounters Date Type Department Care Team Description 10/31/2024 External Device Data [facility] ABSTRACTION Provider, Abstract 10/30/2024 External Device Data [facility] ABSTRACTION Provider, Abstract 10/16/2024 External Device Data [facility] ABSTRACTION Provider, Abstract 09/26/2024 External Device Data [facility] ABSTRACTION Provider, [...] 172.7 cm (5' 8) 01/24/2023 3:08 PM ENROLLMENT COUNSELOR Body Mass Index 50.48 01/24/2023 3:08 PM ENROLLMENT COUNSELOR Plan of Treatment Upcoming Encounters Date Type Department Care Team (Late st Contact Info) Description 12/11/2024 3:45 PM CDT Office Visit [facility] H[facility] - [place] [address] [facility] [[email or web address]] [address] [place] [address] Billy Flores MD [address] [facility] [address] [place] [address] Health Maintenance Due Date Last Done Comments Pre-Diabetes and Diabetes Screening 1988 HEPATITIS B VACCINES (1 of 3 - 19+ 3-dose series) 02/11 HPV/Cotest (21-29) 02/25/2009 HPV VACCINES (1 - 3-dose SCDM series) 02/25/2015 CERVICAL CANCER SCREENING 02/25/2018 HPV/Cotest (30-65) 02/25/2018 PAP SMEAR 02/25/2018 INFLUENZA VACCINE (#1) 2024 12/24/2013 DTAP/TDAP/TD VACCINES (2 - Td or Tdap) 09/30/2032 Insurance MEDICAID [place] Care Teams Shop Tailor Relationship Specialty Start Date End Date Elvia Corrales MD PCP - General Internal Medicine 01/24/23
== END 2024-12-07 14:21 | disposition home or self-care (01) ==
LOC: ANHIMG 14:25
PROVIDERS: PCP Internal Medicine; Visit Provider Internal Medicine
DX: M79.605 Pain in left leg (principal)
CPT/HCPCS: 93971